=== PATIENT | male | born 1945 | race Caucasian/White ===

== ENCOUNTER 2018-09-19 13:00 | Inpatient (IN) | payer MEDICARE, OTHER, SELFPAY ==
[2018-09-19 14:22] VITALS: BP 141/82; PULSE 116; RESP 20; TEMP 36; O2SAT 95; BMI 35.9
--- NOTE | 2018-09-19 15:46 | PCM.HP.STD ---
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 stroke Status: Acute (2) Delirium Status: Acute (3) Retroperitoneal hemorrhage Status: Acute (4) VRE bacteremia Status: Acute (5) Acute blood loss anemia Status: Acute (6) Abnormal EKG Status: Acute (7) Atrial fibrillation Status: Chronic (8) Diabetes mellitus Status: Chronic (9) Hypertension Status: Chronic (10) Osteoarthritis Status: Chronic (11) Coronary artery disease Status: Acute (12) Gout Status: Chronic (13) Hyperlipidemia Status: Chronic (14) Lumbar spinal stenosis Status: Chronic (15) Myelodysplasia (myelodysplastic syndrome) Status: Chronic (16) Obstructive sleep apnea Status: Chronic (17) Cholelithiases Status: Chronic (18) Choledocholithiasis Status: Chronic History of Present Illness Date of Admission: 09/19/18 Chief Complaint: Here for rehabilitation, strengthening, prior to discharge home with spouse. The patient is a 73 year old Male with below past medical history hospitalized at [facility] with falling. 08/12/2018 Right facial droop, aphasia, tPA given. 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 Consider Watchman procedure for stroke prevention. 08/14/2018 Blood culture positive for VRE, CT abdomen/pelvis negative for source of VRE. Infectious Disease recommended 4 weeks of IV Daptomycin thru 09/14/2018. 08/27/2018 Retroperitoneal hemorrhage requiring 6 units packed red blood cell transfusion. Bleeding resolved, anticoagulation not recommended. 08/29/2018 Acute kidney injury, Cr peaked at 5.10, improved to 3.11, new baseline. 09/01/2018 EKG abnormal, no chest pain, cardiology recommended medical management due to multiple comorbidities. 09/12/2018 Encephalopathy improving. Again, atrial fibrillation, not candidate for anticoagulation, consider Watchman procedure. 09/19/2018 Admit to TCU with debility, here for rehabilitation, strengthening, prior to discharge home with spouse. Resident, and resident spouse requested medication for depression, resident admits to the [facility]. Past Medical History Past Medical History (Chronic Problems): Chronic Problems Atrial fibrillation (Chronic) Diabetes mellitus (Chronic) Hypertension (Chronic) Osteoarthritis (Chronic) Gout (Chronic) Hyperlipidemia (Chronic) Lumbar spinal stenosis (Chronic) Myelodysplasia (myelodysplastic syndrome) (Chronic) Obstructive sleep apnea (Chronic) Cholelithiases (Chronic) Choledocholithiasis (Chronic) Allergies Penicillins Allergy (Verified 09/19/18 14:28) Swelling Home Medications: Ambulatory Orders Medication Instructions Recorded Allopurinol 100 mg PO DAILY 09/19/18 Ascorbic Acid [Vitamin C] 250 mg PO BID 09/19/18 Aspirin [Aspirin EC] 81 mg PO DAILY 09/19/18 Atorvastatin Calcium [Lipitor] 20 mg PO QHS 09/19/18 Bisacodyl 10 mg RC DAILY 09/19/18 Cholecalciferol (VIT D3) [Vitamin 1,000 unit PO DAILY 09/19/18 D] Cyanocobalamin (Vitamin B-12) 1,000 mcg IJ MO 09/19/18 [Cyanocobalamin Injection] Cyclobenzaprine [Flexeril] 10 mg PO TID PRN PRN 09/19/18 Darbepoetin Osmar in Polysorbat 250 mcg IJ QWEEK 09/19/18 [Aranesp] Diazepam [Valium] 5 mg PO TID PRN PRN 09/19/18 Diltiazem HCl [Diltiazem 24Hr ER] 180 mg PO BID 09/19/18 Doxazosin Mesylate [Cardura] 4 mg PO DAILY 09/19/18 Ergocalciferol [Vitamin D] 50,000 unit PO Q7D 09/19/18 Furosemide 60 mg PO DAILY 09/19/18 Glimepiride [Amaryl] 1 mg PO DAILY 09/19/18 Hydrochlorothiazide [Hctz] 25 mg PO DAILY 09/19/18 Iron Ps Complex/B12/Folic Acid 1 cap PO BID 09/19/18 [Ferrex 150 Forte Capsule] Metoprolol Succinate [Toprol Xl] 100 mg PO BID 09/19/18 Multivit,Calc,Mins/Folic Acid 1 tablet PO BID 09/19/18 [One-A-Day Proactive 65 Plus Tb] Nitroglycerin 0.4 mg SL Q10M PRN 09/19/18 Omeprazole 40 mg PO DAILY 09/19/18 Pantoprazole Sodium [Protonix] 20 mg PO DAILY 09/19/18 Potassium Chloride 20 meq PO QODAY 09/19/18 Potassium Chloride 30 meq PO QODAY 09/19/18 Pyridoxine HCl [Vitamin B-6] 100 mg PO DAILY 09/19/18 Sitagliptin Phosphate [Januvia] 50 mg PO DAILY 09/19/18 Triamcinolone 0.1% Cream [Kenalog] 1 applic TOPICAL BID 09/19/18 Zinc Sulfate (50mg elemental) 220 mg PO DAILY 09/19/18 [Zinc Sulfate] hydrALAZINE [Apresoline] 50 mg PO BID 09/19/18 Surgical History: herniorrhaphy, total knee arthroplasty - Left., - - Back surgery, cardiac cath, cholecystostomy, orchiectomy. Psychiatric History: No pertinent psych hx Lives: Spouse/ Significant Other Smoking Status: Former smoker Tobacco Use: Non-smoker Alcohol: None Drugs: None - *Family History Maternal History Items: Cancer - leukemia., Diabetes, Heart Disease, Hypertension Review of Systems Constitutional: Denies: Chills, Fever, Weight Change HEENT: Denies: Head Aches, Sinus Congestion, Sinus Drainage Cardiovascular: Denies: Chest Pain, Palpitations Respiratory: Denies: Cough, Shortness of breath at rest, Sputum production Gastrointestinal: Denies: Abdominal Pain, Nausea, Vomiting Genitourinary: Denies: Dysuria Musculoskeletal: Denies: Joint Pain, Joint Tenderness Skin: Denies: Rash, Wounds Neurological: Denies: Numbness, Tingling, Focal weakness Psychiatric: Reports: Depression. Denies: Anxiety, Homicidal Ideations, Suicidal Ideations Hematologic/ Lymphatic: Denies: Easy Bruising, Easy Bleeding VTE Information - Inpt Only VTE Present on Admission: No VTE Mechan Device Prophylaxis: Knee High GINGER Hose VTE Pharm Prophylaxis ordered?: No Reason prophylaxis not ordered:: Medical Contraindication Patient Problems: Active and Suspected Problems Acute left INDUSTRIAL ORGANIZATIONAL PSYCHOLOGIST stroke (Acute) Delirium (Acute) Retroperitoneal hemorrhage (Acute) VRE bacteremia (Acute) Acute blood loss anemia (Acute) Abnormal EKG (Acute) Coronary artery disease (Acute) - Physical Exam General: Alert, Oriented x3, Cooperative HEENT: Atraumatic, PERRLA, EOMI, Normocephalic Neck: Supple, No JVD, Negative Carotid Bruits Lungs: Clear to auscultation, Normal air movement Cardiovascular: Regular rate, No murmurs Abdomen: Bowel Sounds Present, Soft, Non Tender, - - FOS. Extremities: No edema, Capillary Refill Less than 3 Seconds Skin: No rashes, No breakdown Musculoskeletal: No Tenderness to Palpation of Joints or Extremities Neurological: Cranial nerves II-XII grossly intact Psych/Mental Status: Normal Affect, Appropriate Vital Signs Temp Pulse Resp BP Pulse Ox 96.8 F L 116 H 20 H 141/82 H 95 09/19/18 14:22 09/19/18 14:22 09/19/18 14:22 09/19/18 14:22 09/19/18 14:22 Oxygen Delivery Method Room Air Assessment/Plan All Active Problems Acute left INDUSTRIAL ORGANIZATIONAL PSYCHOLOGIST stroke (Acute) Delirium (Acute) Retroperitoneal hemorrhage (Acute) VRE bacteremia (Acute) Acute blood loss anemia (Acute) Abnormal EKG (Acute) Coronary artery disease (Acute) 73 year old male with below past medical history hospitalized for left INDUSTRIAL ORGANIZATIONAL PSYCHOLOGIST stroke, complicated by delirium, retroperitoneal hemorrhage, VRE bacteremia, abnormal EKG, acute kidney injury, admitted to TCU with debility, here for rehabilitation, strengthening, prior to discharge home with spouse. Debility - PT/OT. Dysphagia - ST. Pain - Tylenol 1000MG Q6H PRN mild pain. Bowel - Miralax 17GM daily, Senna/colace 2 tablets BID, Dulcolax 10MG CA daily, order KUB. Pneumonia vaccination - Administer Prevnar 13 and/or Pneumovax 23 as necessary. DVT prophylaxis - Hold, contraindicated due to bleeding. Gout - Allopurinol 100MG daily. Vitamin C deficiency - Vitamin C 250MG BID. Atrial Fibrillation - Metoprolol succinate 100MG BID, Diltiazem 180MG BID, Aspirin 81MG daily, anticoagulation contraindicated. Hyperlipidemia - Atorvastatin 20MG QHS. Vitamin D deficiency - D2 50,000 units per week, D3 1000IU daily. Vitamin B12 deficiency - B12 1000MCG every month. Anemia of chronic kidney disease - Aranesp 250MG per week. Muscle spasm - Flexeril 10MG TID PRN, Diazepam 5MG TID PRN. BPH - Doxazosin 4MG daily. Edema - Lasix 60MG daily. Diabetes Mellitus II - Glimepiride 1MG daily, Januvia 50MG daily. Hypertension - Metoprolol succinate 100MG BID, Diltiazem 180MG BID, Hydralazine 50MG BID, HCTZ 25MG daily. Iron deficiency anemia - Ferrex 150MG daily. Skin irritation - Calmoseptine BID bilateral buttocks. Nutrition - MVI daily. Coronary Artery Disease - Metoprolol 100MG BID, NTG 0.4MG Q5M PRN. GERD - Omeprazole 40MG daily. Hypokalemia - KCL 20MEQ, 30MEQ alternating days. Vitamin B-6 deficiency - B-6 100MG daily. Zinc deficiency - Zinc 220MG daily. Depression - Rx Citalopram 10MG daily.
--- NOTE | 2018-09-19 15:50 | HP.PCM_ITS ---
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 (2) Delirium Status: Acute (3) Retroperitoneal hemorrhage Status: Acute (4) VRE bacteremia Status: Acute (5) Acute blood loss anemia Status: Acute (6) Abnormal EKG Status: Acute (7) Atrial fibrillation Status: Chronic (8) Diabetes mellitus Status: Chronic (9) Hypertension Status: Chronic (10) Osteoarthritis Status: Chronic (11) Coronary artery disease Status: Acute (12) Gout Status: Chronic (13) Hyperlipidemia Status: Chronic (14) Lumbar spinal stenosis Status: Chronic (15) Myelodysplasia (myelodysplastic syndrome) Status: Chronic (16) Obstructive sleep apnea Status: Chronic (17) Cholelithiases Status: Chronic (18) Choledocholithiasis Status: Chronic History of Present Illness Date of Admission: 09/19/18 Chief Complaint: Here for rehabilitation, strengthening, prior to discharge home with spouse. The patient is a 73 year old Male with below past medical history hospitalized a [facility] with falling. 08/12/2018 Right facial droop, aphasia, tPA given. 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 Consider Watchman procedure for stroke prevention. 08/14/2018 Blood culture positive for VRE, CT abdomen/pelvis negative for source of VRE. Infectious Disease recommended 4 weeks of IV Daptomycin thru 09/14/2018. 08/27/2018 Retroperitoneal hemorrhage requiring 6 units packed red blood cell transfusion. Bleeding resolved, anticoagulation not recommended. 08/29/2018 Acute kidney injury, Cr peaked at 5.10, improved to 3.11, new baseline. 09/01/2018 EKG abnormal, no chest pain, cardiology recommended medical management due to multiple comorbidities. 09/12/2018 Encephalopathy improving. Again, atrial fibrillation, not candidate for anticoagulation, consider Watchman procedure. 09/19/2018 Admit to TCU with debility, here for rehabilitation, strengthening, prior to discharge home with spouse. Resident, and resident spouse requested medication for depression, resident admits to the [facility]. Past Medical History Past Medical History (Chronic Problems): Chronic Problems Atrial fibrillation (Chronic) Diabetes mellitus (Chronic) Hypertension (Chronic) Osteoarthritis (Chronic) Gout (Chronic) Hyperlipidemia (Chronic) Lumbar spinal stenosis (Chronic) Myelodysplasia (myelodysplastic syndrome) (Chronic) Obstructive sleep apnea (Chronic) Cholelithiases (Chronic) Choledocholithiasis (Chronic) Allergies Penicillins Allergy (Verified 09/19/18 14:28) Swelling Home Medications: Ambulatory Orders Medication Instructions Recorded Allopurinol 100 mg PO DAILY 09/19/18 Ascorbic Acid [Vitamin C] 250 mg PO BID 09/19/18 Aspirin [Aspirin EC] 81 mg PO DAILY 09/19/18 Atorvastatin Calcium [Lipitor] 20 mg PO QHS 09/19/18 Bisacodyl 10 mg RC DAILY 09/19/18 Cholecalciferol (VIT D3) [Vitamin 1,000 unit PO DAILY 09/19/18 D] Cyanocobalamin (Vitamin B-12) 1,000 mcg IJ MO 09/19/18 [Cyanocobalamin Injection] Cyclobenzaprine [Flexeril] 10 mg PO TID PRN PRN 09/19/18 Darbepoetin Osmar in Polysorbat 250 mcg IJ QWEEK 09/19/18 [Aranesp] Diazepam [Valium] 5 mg PO TID PRN PRN 09/19/18 Diltiazem HCl [Diltiazem 24Hr ER] 180 mg PO BID 09/19/18 Doxazosin Mesylate [Cardura] 4 mg PO DAILY 09/19/18 Ergocalciferol [Vitamin D] 50,000 unit PO Q7D 09/19/18 Furosemide 60 mg PO DAILY 09/19/18 Glimepiride [Amaryl] 1 mg PO DAILY 09/19/18 Hydrochlorothiazide [Hctz] 25 mg PO DAILY 09/19/18 Iron Ps Complex/B12/Folic Acid 1 cap PO BID 09/19/18 [Ferrex 150 Forte Capsule] Metoprolol Succinate [Toprol Xl] 100 mg PO BID 09/19/18 Multivit,Calc,Mins/Folic Acid 1 tablet PO BID 09/19/18 [One-A-Day Proactive 65 Plus Tb] Nitroglycerin 0.4 mg SL Q10M PRN 09/19/18 Omeprazole 40 mg PO DAILY 09/19/18 Pantoprazole Sodium [Protonix] 20 mg PO DAILY 09/19/18 Potassium Chloride 20 meq PO QODAY 09/19/18 Potassium Chloride 30 meq PO QODAY 09/19/18 Pyridoxine HCl [Vitamin B-6] 100 mg PO DAILY 09/19/18 Sitagliptin Phosphate [Januvia] 50 mg PO DAILY 09/19/18 Triamcinolone 0.1% Cream [Kenalog] 1 applic TOPICAL BID 09/19/18 Zinc Sulfate (50mg elemental) 220 mg PO DAILY 09/19/18 [Zinc Sulfate] hydrALAZINE [Apresoline] 50 mg PO BID 09/19/18 Surgical History: herniorrhaphy, total knee arthroplasty - Left., - - Back surgery, cardiac cath, cholecystostomy, orchiectomy. Psychiatric History: No pertinent psych hx Lives: Spouse/ Significant Other Smoking Status: Former smoker Tobacco Use: Non-smoker Alcohol: None Drugs: None - *Family History Maternal History Items: Cancer - leukemia., Diabetes, Heart Disease, Hypertension Review of Systems Constitutional: Denies: Chills, Fever, Weight Change HEENT: Denies: Head Aches, Sinus Congestion, Sinus Drainage Cardiovascular: Denies: Chest Pain, Palpitations Respiratory: Denies: Cough, Shortness of breath at rest, Sputum production Gastrointestinal: Denies: Abdominal Pain, Nausea, Vomiting Genitourinary: Denies: Dysuria Musculoskeletal: Denies: Joint Pain, Joint Tenderness Skin: Denies: Rash, Wounds Neurological: Denies: Numbness, Tingling, Focal weakness Psychiatric: Reports: Depression. 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 * Debility - PT/OT. * Dysphagia - ST. * Pain - Tylenol 1000MG Q6H PRN mild pain. * Bowel - Miralax 17GM daily, Senna/colace 2 tablets BID, Dulcolax 10MG ME daily, order KUB. * Pneumonia vaccination - Administer Prevnar 13 and/or Pneumovax 23 as necessary. * DVT prophylaxis - Hold, contraindicated due to bleeding. * Gout - Allopurinol 100MG daily. * Vitamin C deficiency - Vitamin C 250MG BID. * Atrial Fibrillation - Metoprolol succinate 100MG BID, Diltiazem 180MG BID, Aspirin 81MG daily, anticoagulation contraindicated. * Hyperlipidemia - Atorvastatin 20MG QHS. * Vitamin D deficiency - D2 50,000 units per week, D3 1000IU daily. * Vitamin B12 deficiency - B12 1000MCG every month. * Anemia of chronic kidney disease - Aranesp 250MG per week. * Muscle spasm - Flexeril 10MG TID PRN, Diazepam 5MG TID PRN. * BPH - Doxazosin 4MG daily. * Edema - Lasix 60MG daily. * Diabetes Mellitus II - Glimepiride 1MG daily, Januvia 50MG daily. * Hypertension - Metoprolol succinate 100MG BID, Diltiazem 180MG BID, Hydralazine 50MG BID, HCTZ 25MG daily. * Iron deficiency anemia - Ferrex 150MG daily. * Skin irritation - Calmoseptine BID bilateral buttocks. * Nutrition - MVI daily. * Coronary Artery Disease - Metoprolol 100MG BID, NTG 0.4MG Q5M PRN. * GERD - Omeprazole 40MG daily. * Hypokalemia - KCL 20MEQ, 30MEQ alternating days. * Vitamin B-6 deficiency - B-6 100MG daily. * Zinc deficiency - Zinc 220MG daily. * Depression - Rx Citalopram 10MG daily.
[2018-09-19 17:00] VITALS: PULSE 125; RESP 18; O2SAT 99
[2018-09-19] MEDS: Ascorbic Acid 500 MG Tablet 250 MG PO (19:08)
[2018-09-19] MEDS: Senna/Docusate Sodium 1 Tablet 2 TABLET PO (19:09)
[2018-09-19 19:11] VITALS: BP 135/82; PULSE 125
[2018-09-19] MEDS: Metoprolol(XL)Succ 100 MG Tablet PO (19:11)
[2018-09-19] MEDS: hydrALAZINE 50 MG Tablet PO (19:11)
[2018-09-19] MEDS: dilTIAZem CD 180 MG Capsule PO (19:11)
[2018-09-19] MEDS: Atorvastatin Calcium 20 MG Tablet PO (21:51)
[2018-09-19] MEDS: Menthol/Lanolin/Calamine/Znox 113 GM Tube 1 APPLIC TOPICAL (21:52)
[2018-09-19] MEDS: Nystatin Powder 15gm Bottle 1 APPLIC TOPICAL (21:58)
[2018-09-20] MEDS: Bisacodyl 10 MG Suppository RECTAL (05:51)
[2018-09-20] MEDS: Nystatin Powder 15gm Bottle 1 APPLIC TOPICAL ×3 (05:53→21:41)
[2018-09-20] MEDS: Menthol/Lanolin/Calamine/Znox 113 GM Tube 1 APPLIC TOPICAL ×2 (05:53→21:41)
[2018-09-20] MEDS: Pantoprazole Sodium 40 MG Tablet PO (05:54)
[2018-09-20] MEDS: Pyridoxine HCl 100 MG Tablet PO (05:54)
[2018-09-20] MEDS: LINAGLIPTIN 5 MG TABLET PO (05:54)
[2018-09-20] MEDS: Ascorbic Acid 500 MG Tablet 250 MG PO ×2 (05:55→17:22)
[2018-09-20] MEDS: Furosemide 40 MG Tablet 60 MG PO (05:56)
[2018-09-20] MEDS: dilTIAZem CD 180 MG Capsule PO ×2 (05:57→17:22)
[2018-09-20] MEDS: Doxazosin 4 MG Tablet PO (05:57)
[2018-09-20 06:01] VITALS: BP 138/74; PULSE 91
[2018-09-20] MEDS: hydrALAZINE 50 MG Tablet PO ×2 (06:01→17:21)
[2018-09-20 06:02] VITALS: BP 138/74; PULSE 91
[2018-09-20] MEDS: Metoprolol(XL)Succ 100 MG Tablet PO ×2 (06:02→17:23)
[2018-09-20] MEDS: hydroCHLOROthiazide 25 MG Tablet PO (06:04)
[2018-09-20 06:05] LABS: Absolute Lymphocyte Count 0.73 X10^3/ul (0.83-4.51); Absolute Neutrophil Count 7.7 X10^3/uL (2.0-7.7); Basophil# 0.01 X10^3/uL; Basophil% 0.1 % (0-1); Eosinophils% 4.1 % (0-5); Hematocrit 23.8 % (40-54); Hemoglobin 7.4 g/dl (13.0-16.5); Lymphocyte # 0.73 X10^3/ul (4.0); Lymphocyte % 7.5 % (19-41); Mean Corp Hgb Conc 31.1 g/gl (32-36); Mean Corpuscular Hgb 30.3 pg (27.0-32.0); Mean Corpuscular Volume 97.5 fL (80-94); Mean Platelet Vol. 8.7 fl (6.2-12.0); Monocyte# 0.89 X10^3/uL; Monocyte% 9.2 % (0-10); Neutrophil # 7.65 X10^3/uL (2.7-7.7); Neutrophil % 78.8 % (47-70); Platelet Count 159 K/mm3 (150-450); RBC Distribution Width CV 17.6 % (11.6-14.6); RBC Distribution Width SD 59.2 fl (35.1-43.9); Red Blood Count 2.44 M/mm3 (4.6-6.2); White Blood Count 9.7 K/mm3 (4.4-11.0)
[2018-09-20 06:09] LABS: POSITIVE COUNT NO; POSITIVE DIFFERENTIAL NO; POSITIVE MORPHOLOGY NO
[2018-09-20 06:27] LABS: Anion Gap 7 (5-15); BUN 91 mg/dL (7-18); Calcium,Total 8.9 mg/dL (8.5-10.1); Chloride 104 mmol/L (98-107); EST Glomerular Filtration Rate 26 mL/min (>60); Est Glom Filt Rate - Afr Amer 31 mL/min (>60); Estimated Creatinine Clearance 30.24 ml/min; Glucose 202 mg/dL (74-106); Potassium 4.2 mmol/L (3.5-5.1); Sodium Level 137 mmol/L (136-145)
[2018-09-20 06:55] LABS: Bedside Glucose 222 mg/dL (70-110)
[2018-09-20] MEDS: Allopurinol 100 MG Tablet PO (08:07)
[2018-09-20] MEDS: Multivitamins,Ther W-Minerals Tablet 1 TABLET PO ×2 (08:07→17:21)
[2018-09-20] MEDS: Glimepiride 1 MG Tablet PO (08:07)
[2018-09-20] MEDS: Aspirin E.C. 81 MG Tablet PO (08:07)
[2018-09-20] MEDS: Iron Polysaccharide Complex 150 MG CAPSULE PO ×2 (08:07→17:21)
[2018-09-20 11:00] VITALS: PULSE 98; RESP 18; O2SAT 97
[2018-09-20] MEDS: Tuberculin,Purif.prot.deriv. 50 TU/ML Vial 5 ML ID (11:04)
[2018-09-20] MEDS: 0.9% NaCl PICC Flush IV ×2 (14:01→21:40)
[2018-09-20 15:33] VITALS: BP 119/89; PULSE 99; RESP 20; TEMP 36.1; O2SAT 99
--- NOTE | 2018-09-20 16:10 | NURSING ---
ASKED PT ABOUT CODE STASIS FOR PT. WOULD LIKE A FULL CODE. REPORTED TO GURU VALENTE
[2018-09-20 17:21] VITALS: PULSE 95
[2018-09-20 17:23] VITALS: PULSE 95
[2018-09-20] MEDS: Atorvastatin Calcium 20 MG Tablet PO (21:41)
[2018-09-21] MEDS: Bisacodyl 10 MG Suppository RECTAL (05:15)
[2018-09-21] MEDS: Ascorbic Acid 500 MG Tablet 250 MG PO ×2 (05:16→17:04)
[2018-09-21 05:17] VITALS: BP 117/63; PULSE 81
[2018-09-21] MEDS: dilTIAZem CD 180 MG Capsule PO (05:17)
[2018-09-21] MEDS: Metoprolol(XL)Succ 100 MG Tablet PO (05:17)
[2018-09-21] MEDS: Pantoprazole Sodium 40 MG Tablet PO (05:18)
[2018-09-21] MEDS: hydroCHLOROthiazide 25 MG Tablet PO (05:18)
[2018-09-21] MEDS: Doxazosin 4 MG Tablet PO (05:18)
[2018-09-21] MEDS: Furosemide 40 MG Tablet 60 MG PO (05:18)
[2018-09-21 05:19] VITALS: BP 117/63; PULSE 81
[2018-09-21] MEDS: Pyridoxine HCl 100 MG Tablet PO (05:19)
[2018-09-21] MEDS: hydrALAZINE 50 MG Tablet PO (05:19)
[2018-09-21] MEDS: LINAGLIPTIN 5 MG TABLET PO (05:20)
[2018-09-21] MEDS: Menthol/Lanolin/Calamine/Znox 113 GM Tube 1 APPLIC TOPICAL ×2 (05:20→20:17)
[2018-09-21] MEDS: Nystatin Powder 15gm Bottle 1 APPLIC TOPICAL ×3 (05:21→20:17)
[2018-09-21 06:41] LABS: Bedside Glucose 155 mg/dL (70-110)
[2018-09-21] MEDS: Allopurinol 100 MG Tablet PO (08:05)
[2018-09-21] MEDS: Iron Polysaccharide Complex 150 MG CAPSULE PO ×2 (08:05→16:59)
[2018-09-21] MEDS: Aspirin E.C. 81 MG Tablet PO (08:05)
[2018-09-21] MEDS: Multivitamins,Ther W-Minerals Tablet 1 TABLET PO ×2 (08:05→16:59)
[2018-09-21] MEDS: Glimepiride 1 MG Tablet PO (08:05)
--- NOTE | 2018-09-21 09:08 | NURSING ---
Dr Ni notified by welder 2nd shift that pt requesting pt be on antidepressant d/t tearful & emotional. use to take it at home and it helped alot according to .
[2018-09-21] MEDS: Citalopram 10 MG Tablet PO (09:39)
[2018-09-21 09:46] VITALS: PULSE 76; RESP 18; O2SAT 99
[2018-09-21] MEDS: Acetaminophen 500 MG Tablet 1000 MG PO (12:31)
--- NOTE | 2018-09-21 13:15 | RAD_ITS ---
STUDY: X-RAY - ABDOMEN/PELVIS REASON FOR EXAM: Male, 73 years old. Diffuse abdominal pain TECHNIQUE: 4 AP views COMPARISON: None. FINDINGS: Normal visualized lung bases. There is a moderate amount of colonic fecal material. There is no demonstrated free abdominal air. The visualized liver, spleen and kidneys are grossly normal in size and morphology. Normal soft tissue structures. Surgical hardware in the lower thoracic and lumbar spine free of complication RAD/Abdomen Single View IMPRESSION: No acute findings, constipation Electronically Signed: Gutierrez Cullen MD at 16:59 EDT , Service support ,
[2018-09-21 15:27] VITALS: BP 93/45; PULSE 109; RESP 18; TEMP 36.6; O2SAT 96
--- NOTE | 2018-09-21 15:37 | NURSING ---
wound photo: right buttock
[2018-09-21] MEDS: Senna/Docusate Sodium 1 Tablet 2 TABLET PO (17:03)
--- NOTE | 2018-09-21 18:41 | NURSING ---
pt BP low, Dr Ni updated. new order to hold metoprolol, apresoline & cardizem tonight.
--- NOTE | 2018-09-21 19:30 | NURSING ---
Dr Ni reviewed KUB and entered ordered of golytely 1L ordered.
[2018-09-21] MEDS: Atorvastatin Calcium 20 MG Tablet PO (20:19)
[2018-09-21] MEDS: Electrolyte Solution/Peg's 4000 ML 1000 ML PO (20:25)
[2018-09-22] MEDS: 0.9% NaCl PICC Flush IV ×2 (04:54→23:18)
[2018-09-22] MEDS: Bisacodyl 10 MG Suppository RECTAL (06:33)
[2018-09-22] MEDS: Ascorbic Acid 500 MG Tablet 250 MG PO ×2 (06:36→17:29)
[2018-09-22] MEDS: LINAGLIPTIN 5 MG TABLET PO (06:36)
[2018-09-22] MEDS: Pyridoxine HCl 100 MG Tablet PO (06:36)
[2018-09-22 06:37] VITALS: BP 127/60; PULSE 102
[2018-09-22] MEDS: Metoprolol(XL)Succ 100 MG Tablet PO ×2 (06:37→17:28)
[2018-09-22 06:38] VITALS: BP 127/60; PULSE 102
[2018-09-22] MEDS: Senna/Docusate Sodium 1 Tablet 2 TABLET PO ×2 (06:38→17:28)
[2018-09-22] MEDS: hydrALAZINE 50 MG Tablet PO ×2 (06:38→17:27)
[2018-09-22] MEDS: dilTIAZem CD 180 MG Capsule PO ×2 (06:38→17:28)
[2018-09-22] MEDS: Nystatin Powder 15gm Bottle 1 APPLIC TOPICAL ×3 (06:39→22:04)
[2018-09-22] MEDS: Pantoprazole Sodium 40 MG Tablet PO (06:39)
[2018-09-22] MEDS: Doxazosin 4 MG Tablet PO (06:39)
[2018-09-22] MEDS: Citalopram 10 MG Tablet PO (06:39)
[2018-09-22] MEDS: Furosemide 40 MG Tablet 60 MG PO (06:39)
[2018-09-22] MEDS: Menthol/Lanolin/Calamine/Znox 113 GM Tube 1 APPLIC TOPICAL ×2 (06:40→22:04)
[2018-09-22] MEDS: hydroCHLOROthiazide 25 MG Tablet PO (06:40)
[2018-09-22 07:01] LABS: Bedside Glucose 169 mg/dL (70-110)
[2018-09-22] MEDS: Aspirin E.C. 81 MG Tablet PO (08:39)
[2018-09-22] MEDS: Glimepiride 1 MG Tablet PO (08:39)
[2018-09-22] MEDS: Iron Polysaccharide Complex 150 MG CAPSULE PO ×2 (08:39→17:27)
[2018-09-22] MEDS: Allopurinol 100 MG Tablet PO (08:40)
[2018-09-22] MEDS: Multivitamins,Ther W-Minerals Tablet 1 TABLET PO ×2 (08:40→17:27)
--- NOTE | 2018-09-22 14:22 | PCM.PN.RX ---
<Rojas Stewart D - Last Filed: 09/22/18 14:22> Progress Note - Pharmacy Subjective: [facility]CU Admission Objective: Allergies Penicillins Allergy (Verified 09/19/18 14:28) Swelling Current Medications Generic Name Dose Route Start Last Admin Trade Name Freq PRN Reason Stop Dose Admin Acetaminophen 1,000 mg 09/19/18 16:12 09/21/18 12:31 Tylenol PO 1,000 mg Q6H PRN Administration MILD PAIN (1-3/10) Allopurinol 100 mg 09/20/18 08:00 09/22/18 08:40 [facility] Ascorbic Acid 250 mg 09/19/18 18:00 09/22/18 06:36 Vitamin C PO 250 mg BID [facility] Administration Aspirin 81 mg 09/20/18 08:00 09/22/18 08:39 Ecotrin PO 81 mg DAILYCM [facility] Administration Atorvastatin Calcium 20 mg 09/19/18 22:00 09/21/18 20:19 Lipitor PO 20 mg QHS [facility] Administration Bisacodyl 10 mg 09/20/18 06:00 09/22/18 06:33 Dulcolax RECTAL 09/29/18 06:01 10 mg DAILY [facility] Administration Calamine/Phenol 1 applic 09/19/18 22:00 09/22/18 06:40 Calmoseptine Ointment TOPICAL 1 applicatio 0600,2200 [facility] Administration Protocol Cholecalciferol 1,000 unit 09/20/18 06:00 09/22/18 06:36 Vitamin D PO 1,000 unit DAILY [facility] Administration Citalopram Hydrobromide 10 mg 09/22/18 06:00 09/22/18 06:39 Celexa PO 10 mg DAILY [facility] Administration Cyanocobalamin 1,000 mcg 09/23/18 10:00 Vitamin B12 IM QMONTH [facility] Cyclobenzaprine HCl 10 mg 09/19/18 15:36 Flexeril PO TID PRN PRN muscle spasms Diazepam 5 mg 09/19/18 15:36 Valium PO TID PRN PRN muscle spasms Diltiazem HCl 180 mg 09/19/18 18:00 09/22/18 06:38 Cardizem Cd PO 180 mg BID [facility] Administration Doxazosin Mesylate 4 mg 09/20/18 06:00 09/22/18 06:39 Cardura PO 4 mg DAILY [facility] Administration Ergocalciferol 50,000 unit 09/25/18 10:00 Vitamin D PO Q7D [facility] Furosemide 60 mg 09/20/18 06:00 09/22/18 06:39 Lasix PO 60 mg DAILY [facility] Administration Glimepiride 1 mg 09/20/18 08:00 09/22/18 08:39 Amaryl PO 1 mg DAILYCM [facility] Administration Heparin Sodium (Beef Lung) 50 units 09/19/18 22:35 IV UD PRN HEPARIN FLUSH Hydralazine HCl 50 mg 09/19/18 18:00 09/22/18 06:38 Apresoline PO 50 mg BID [facility] Administration Hydrochlorothiazide 25 mg 09/20/18 06:00 09/22/18 06:40 Hctz PO 25 mg DAILY [facility] Administration Linagliptin 5 mg 09/20/18 06:00 09/22/18 06:36 Tradjenta PO 5 mg DAILY [facility] Administration Metoprolol Succinate 100 mg 09/19/18 18:00 09/22/18 06:37 Toprol Xl (Beta Thelma) PO 100 mg BID [facility] Administration Multivitamins/Minerals 1 tablet 09/20/18 08:00 09/22/18 08:40 Multivitamin With Minerals PO 1 tablet BIDCM [facility] Administration Nitroglycerin 0.4 mg 09/19/18 15:36 Nitrostat SUBLINGUAL Q5M PRN chest pain Nystatin 1 applic 09/19/18 22:00 09/22/18 14:00 Mycostatin Powder TOPICAL 1 applicatio TID [facility] Administration Protocol Pantoprazole Sodium 40 mg 09/20/18 06:00 09/22/18 06:39 Protonix PO 40 mg DAILY [facility] Administration Polyethylene Glycol 17 gm 09/20/18 06:00 09/22/18 06:40 Miralax PO Not Given DAILY [facility] Polysaccharide Iron Complex 150 mg 09/20/18 08:00 09/22/18 08:39 Ferrex 150 PO 150 mg BIDCM [facility] Administration Potassium Chloride 20 meq 09/21/18 10:00 09/21/18 08:05 K-Dur PO 20 meq QODAY [facility] Administration Potassium Chloride 30 meq 09/20/18 10:00 09/22/18 10:25 K-Dur PO 30 meq QODAY [facility] Administration Pyridoxine HCl 100 mg 09/20/18 06:00 09/22/18 06:36 Vitamin B-6 PO 100 mg DAILY [facility] Administration Senna/Docusate Sodium 2 tablet 09/19/18 18:00 09/22/18 06:38 Senokot-S, Kandi-Colace PO 2 tablet BID [facility] Administration Sodium Chloride 10 - 20 ml 09/19/18 22:35 09/22/18 04:54 IV 10 ml UD PRN Administration PICC FLUSH Tuberculin PPD 5 tu 09/27/18 10:00 Tubersol, Aplisol, Ppd ID 09/27/18 10:01 X1 ONE Zinc Sulfate 220 mg 09/20/18 06:00 09/22/18 06:38 Zinc Sulfate PO 220 mg DAILY [facility] Administration Problem List Acute left [employer] stroke (Acute) Delirium (Acute) Retroperitoneal hemorrhage (Acute) VRE bacteremia (Acute) Acute blood loss anemia (Acute) Abnormal EKG (Acute) Atrial fibrillation (Chronic) Diabetes mellitus (Chronic) Hypertension (Chronic) Osteoarthritis (Chronic) Coronary artery disease (Acute) Gout (Chronic) Hyperlipidemia (Chronic) Lumbar spinal stenosis (Chronic) Myelodysplasia (myelodysplastic syndrome) (Chronic) Obstructive sleep apnea (Chronic) Cholelithiases (Chronic) Choledocholithiasis (Chronic) Vital Signs Temp Pulse Resp BP Pulse Ox 97.8 F 102 H 18 127/60 H 96 09/21/18 15:27 09/22/18 06:38 09/21/18 15:27 09/22/18 06:38 09/21/18 15:27 Oxygen Delivery Method Room Air Weight: 132.619 kg Body Mass Index (BMI) 35.9 Sodium 137 mmol/L (136-145) 09/20/18 05:20 Potassium 4.2 mmol/L (3.5-5.1) 09/20/18 05:20 Chloride 104 mmol/L (98-107) 09/20/18 05:20 Carbon Dioxide 26.0 mmol/L (21.0-32.0) 09/20/18 05:20 Anion Gap 7 (5-15) 09/20/18 05:20 BUN 91 mg/dL (7-18) H 09/20/18 05:20 Creatinine 2.60 mg/dL (0.70-1.30) H 09/20/18 05:20 Est GFR (MDRD) Af Amer 31 mL/min (>60) L 09/20/18 05:20 Est GFR (MDRD) Non-Af 26 mL/min (>60) L 09/20/18 05:20 BUN/Creatinine Ratio 35.0 RATIO (10-20) H 09/20/18 05:20 Glucose 202 mg/dL (74-106) H 09/20/18 05:20 Assessment/Plan: 1) Pain APAP for mild pain. Continue to monitor prn medication use, daily pain scores. * Duplicate instructions (muscle spasms) for diazepam and cyclobenzaprine. Please consider dc one or change instructions for when to use each one. 2) CAD/HTN/HLD/AFib ASA, atorvastatin, diltiazem, furosemide, hydralazine, HCTZ, metoprolol, prn ntg. Continue to monitor BP/HR, renal function, electrolytes, prn medication use, s/s chest pain. 3) BPH Doxazosin. Continue to monitor BP, symptoms. 4) DM2 Glimepiride, linagliptin. Continue to monitor renal function, BGT, s/s hyper/hypoglycemia. 5) GI Pantoprazole. Continue to monitor s/s GI distress. 6) Gout Allopurinol. Continue to monitor s/s gout. 7) Nutrition B6, KCL, multivitamin, Fe, D, B12, C, Zn. Continue to monitor clinically. Psychotropic Medications: 8) Depression Citalopram. Continue to monitor s/s depression/anxiety. Unnecessary Medications: * 9) Patient is taking cholecalciferol 1000 units daily, and ergocalciferol 50k units weekly. Recommend to DC daily 1000 unit order. Bowel Regimen: 10) Senna/s, PEG, prn bisacodyl. Continue to monitor prn medication use, for constipation/diarrhea. Date of Note:: 09/22/18 - Provider Comments Provider responsibility: Provider responsible to enter orders to implement recommendations <Charly Ni Chi - Last Filed: 09/22/18 16:58> Progress Note - Pharmacy Subjective: [] Objective: Allergies Penicillins Allergy (Verified 09/19/18 14:28) Swelling Current Medications Generic Name Dose Route Start Last Admin Trade Name Freq PRN Reason Stop Dose Admin Acetaminophen 1,000 mg 09/19/18 16:12 09/21/18 12:31 Tylenol PO 1,000 mg Q6H PRN Administration MILD PAIN (1-3/10) Allopurinol 100 mg 09/20/18 08:00 09/22/18 08:40 [facility] Ascorbic Acid 250 mg 09/19/18 18:00 09/22/18 06:36 Vitamin C PO 250 mg BID [facility] Administration Aspirin 81 mg 09/20/18 08:00 09/22/18 08:39 [facility] Administration Atorvastatin Calcium 20 mg 09/19/18 22:00 09/21/18 20:19 Lipitor PO 20 mg QHS [facility] Administration Bisacodyl 10 mg 09/20/18 06:00 09/22/18 06:33 Dulcolax RECTAL 09/29/18 06:01 10 mg DAILY [facility] Administration Calamine/Phenol 1 applic 09/19/18 22:00 09/22/18 06:40 Calmoseptine Ointment TOPICAL 1 applicatio 0600,2200 [facility] Administration Protocol Cholecalciferol 1,000 unit 09/20/18 06:00 09/22/18 06:36 Vitamin D PO 1,000 unit DAILY [facility] Administration Citalopram Hydrobromide 10 mg 09/22/18 06:00 09/22/18 06:39 Celexa PO 10 mg DAILY [facility] Administration Cyanocobalamin 1,000 mcg 09/23/18 10:00 Vitamin B12 IM QMONTH [facility] Cyclobenzaprine HCl 10 mg 09/19/18 15:36 Flexeril PO TID PRN PRN muscle spasms Diazepam 5 mg 09/19/18 15:36 Valium PO TID PRN PRN muscle spasms Diltiazem HCl 180 mg 09/19/18 18:00 09/22/18 06:38 Cardizem Cd PO 180 mg BID [facility] Administration Doxazosin Mesylate 4 mg 09/20/18 06:00 09/22/18 06:39 Cardura PO 4 mg DAILY [facility] Administration Ergocalciferol 50,000 unit 09/25/18 10:00 Vitamin D PO Q7D [facility] Furosemide 60 mg 09/20/18 06:00 09/22/18 06:39 Lasix PO 60 mg DAILY [facility] Administration Glimepiride 1 mg 09/20/18 08:00 09/22/18 08:39 Amaryl PO 1 mg DAILYCM [facility] Administration Heparin Sodium (Beef Lung) 50 units 09/19/18 22:35 IV UD PRN HEPARIN FLUSH Hydralazine HCl 50 mg 09/19/18 18:00 09/22/18 06:38 Apresoline PO 50 mg BID [facility] Administration Hydrochlorothiazide 25 mg 09/20/18 06:00 09/22/18 06:40 Hctz PO 25 mg DAILY [facility] Administration Linagliptin 5 mg 09/20/18 06:00 09/22/18 06:36 Tradjenta PO 5 mg DAILY [facility] Administration Metoprolol Succinate 100 mg 09/19/18 18:00 09/22/18 06:37 Toprol Xl (Beta Thelma) PO 100 mg BID [facility] Administration Multivitamins/Minerals 1 tablet 09/20/18 08:00 09/22/18 08:40 [facility] Nitroglycerin 0.4 mg 09/19/18 15:36 Nitrostat SUBLINGUAL Q5M PRN chest pain Nystatin 1 applic 09/19/18 22:00 09/22/18 14:00 Mycostatin Powder TOPICAL 1 applicatio TID [facility] Administration Protocol Pantoprazole Sodium 40 mg 09/20/18 06:00 09/22/18 06:39 Protonix PO 40 mg DAILY [facility] Administration Polyethylene Glycol 17 gm 09/20/18 06:00 09/22/18 06:40 Miralax PO Not Given DAILY [facility] Polysaccharide Iron Complex 150 mg 09/20/18 08:00 09/22/18 08:39 Ferrex 150 PO 150 mg BIDCM [facility] Administration Potassium Chloride 20 meq 09/21/18 10:00 09/21/18 08:05 K-Dur PO 20 meq QODAY [facility] Administration Potassium Chloride 30 meq 09/20/18 10:00 09/22/18 10:25 K-Dur PO 30 meq QODAY [facility] Administration Pyridoxine HCl 100 mg 09/20/18 06:00 09/22/18 06:36 Vitamin B-6 PO 100 mg DAILY [facility] Administration Senna/Docusate Sodium 2 tablet 09/19/18 18:00 09/22/18 06:38 Senokot-S, Kandi-Colace PO 2 tablet BID [facility] Administration Sodium Chloride 10 - 20 ml 09/19/18 22:35 09/22/18 04:54 IV 10 ml UD PRN Administration PICC FLUSH Tuberculin PPD 5 tu 09/27/18 10:00 Tubersol, Aplisol, Ppd ID 09/27/18 10:01 X1 ONE Zinc Sulfate 220 mg 09/20/18 06:00 09/22/18 06:38 Zinc Sulfate PO 220 mg DAILY [facility] Administration Problem List Acute left [employer] stroke (Acute) Delirium (Acute) Retroperitoneal hemorrhage (Acute) VRE bacteremia (Acute) Acute blood loss anemia (Acute) Abnormal EKG (Acute) Atrial fibrillation (Chronic) Diabetes mellitus (Chronic) Hypertension (Chronic) Osteoarthritis (Chronic) Coronary artery disease (Acute) Gout (Chronic) Hyperlipidemia (Chronic) Lumbar spinal stenosis (Chronic) Myelodysplasia (myelodysplastic syndrome) (Chronic) Obstructive sleep apnea (Chronic) Cholelithiases (Chronic) Choledocholithiasis (Chronic) Vital Signs Temp Pulse Resp BP Pulse Ox 97.1 F L 108 H 18 129/66 H 98 09/22/18 16:00 09/22/18 16:00 09/22/18 16:00 09/22/18 16:00 09/22/18 16:00 Oxygen Delivery Method Room Air Weight: 132.619 kg Body Mass Index (BMI) 35.9 Sodium 137 mmol/L (136-145) 09/20/18 05:20 Potassium 4.2 mmol/L (3.5-5.1) 09/20/18 05:20 Chloride 104 mmol/L (98-107) 09/20/18 05:20 Carbon Dioxide 26.0 mmol/L (21.0-32.0) 09/20/18 05:20 Anion Gap 7 (5-15) 09/20/18 05:20 BUN 91 mg/dL (7-18) H 09/20/18 05:20 Creatinine 2.60 mg/dL (0.70-1.30) H 09/20/18 05:20 Est GFR (MDRD) Af Amer 31 mL/min (>60) L 09/20/18 05:20 Est GFR (MDRD) Non-Af 26 mL/min (>60) L 09/20/18 05:20 BUN/Creatinine Ratio 35.0 RATIO (10-20) H 09/20/18 05:20 Glucose 202 mg/dL (74-106) H 09/20/18 05:20 Assessment/Plan: Psychotropic Medications: Unnecessary Medications: Bowel Regimen: - Provider Comments Provider responsibility: Provider responsible to enter orders to implement recommendations Provider Comments to Recommendations by Pharmacy: Agree
--- NOTE | 2018-09-22 14:33 | PHA.CONS_ITS ---
<Rojas Stewart D - Last Filed: 09/22/18 14:22> Progress Note - Pharmacy Subjective: TCU Admission Objective: Allergies Penicillins Allergy (Verified 09/19/18 14:28) Swelling Current Medications Generic Name Dose Route Start Last Admin Trade Name Freq PRN Reason Stop Dose Admin Acetaminophen 1,000 mg 09/19/18 16:12 09/21/18 12:31 Tylenol PO 1,000 mg Q6H PRN Administration MILD PAIN (1-3/10) Allopurinol 100 mg 09/20/18 08:00 09/22/18 08:40 [facility] Ascorbic Acid 250 mg 09/19/18 18:00 09/22/18 06:36 Vitamin C PO 250 mg BID [facility] Administration Aspirin 81 mg 09/20/18 08:00 09/22/18 08:39 Ecotrin PO 81 mg DAILYCM [facility] Administration Atorvastatin Calcium 20 mg 09/19/18 22:00 09/21/18 20:19 Lipitor PO 20 mg QHS [facility] Administration Bisacodyl 10 mg 09/20/18 06:00 09/22/18 06:33 Dulcolax RECTAL 09/29/18 06:01 10 mg DAILY [facility] Administration Calamine/Phenol 1 applic 09/19/18 22:00 09/22/18 06:40 Calmoseptine Ointment TOPICAL 1 applicatio 0600,2200 [facility] Administration Protocol Cholecalciferol 1,000 unit 09/20/18 06:00 09/22/18 06:36 Vitamin D PO 1,000 unit DAILY [facility] Administration Citalopram Hydrobromide 10 mg 09/22/18 06:00 09/22/18 06:39 Celexa PO 10 mg DAILY [facility] Administration Cyanocobalamin 1,000 mcg 09/23/18 10:00 Vitamin B12 IM QMONTH [facility] Cyclobenzaprine HCl 10 mg 09/19/18 15:36 Flexeril PO TID PRN PRN muscle spasms Diazepam 5 mg 09/19/18 15:36 Valium PO TID PRN PRN muscle spasms Diltiazem HCl 180 mg 09/19/18 18:00 09/22/18 06:38 Cardizem Cd PO 180 mg BID [facility] Administration Doxazosin Mesylate 4 mg 09/20/18 06:00 09/22/18 06:39 Cardura PO 4 mg DAILY [facility] Administration Ergocalciferol 50,000 unit 09/25/18 10:00 Vitamin D PO Q7D [facility] Furosemide 60 mg 09/20/18 06:00 09/22/18 06:39 Lasix PO 60 mg DAILY [facility] Administration Glimepiride 1 mg 09/20/18 08:00 09/22/18 08:39 Amaryl PO 1 mg DAILYCM [facility] Administration Heparin Sodium (Beef Lung) 50 units 09/19/18 22:35 IV UD PRN HEPARIN FLUSH Hydralazine HCl 50 mg 09/19/18 18:00 09/22/18 06:38 Apresoline PO 50 mg BID [facility] Administration Hydrochlorothiazide 25 mg 09/20/18 06:00 09/22/18 06:40 Hctz PO 25 mg DAILY [facility] Administration Linagliptin 5 mg 09/20/18 06:00 09/22/18 06:36 Tradjenta PO 5 mg DAILY [facility] Administration Metoprolol Succinate 100 mg 09/19/18 18:00 09/22/18 06:37 Toprol Xl (Beta Thelma) PO 100 mg BID [facility] Administration Multivitamins/Minerals 1 tablet 09/20/18 08:00 09/22/18 08:40 Multivitamin With Minerals PO 1 tablet BIDCM [facility] Administration Nitroglycerin 0.4 mg 09/19/18 15:36 Nitrostat SUBLINGUAL Q5M PRN chest pain Nystatin 1 applic 09/19/18 22:00 09/22/18 14:00 Mycostatin Powder TOPICAL 1 applicatio TID [facility] Administration Protocol Pantoprazole Sodium 40 mg 09/20/18 06:00 09/22/18 06:39 Protonix PO 40 mg DAILY [facility] Administration Polyethylene Glycol 17 gm 09/20/18 06:00 09/22/18 06:40 Miralax PO Not Given DAILY [facility] Polysaccharide Iron Complex 150 mg 09/20/18 08:00 09/22/18 08:39 Ferrex 150 PO 150 mg BIDCM [facility] Administration Potassium Chloride 20 meq 09/21/18 10:00 09/21/18 08:05 K-Dur PO 20 meq QODAY [facility] Administration Potassium Chloride 30 meq 09/20/18 10:00 09/22/18 10:25 K-Dur PO 30 meq QODAY [facility] Administration Pyridoxine HCl 100 mg 09/20/18 06:00 09/22/18 06:36 Vitamin B-6 PO 100 mg DAILY [facility] Administration Senna/Docusate Sodium 2 tablet 09/19/18 18:00 09/22/18 06:38 Senokot-S, Kandi-Colace PO 2 tablet BID [facility] Administration Sodium Chloride 10 - 20 ml 09/19/18 22:35 09/22/18 04:54 IV 10 ml UD PRN Administration PICC FLUSH Tuberculin PPD 5 tu 09/27/18 10:00 Tubersol, Aplisol, Ppd ID 09/27/18 10:01 X1 ONE Zinc Sulfate 220 mg 09/20/18 06:00 09/22/18 06:38 Zinc Sulfate PO 220 mg DAILY [facility] Administration Problem List Acute left [employer] stroke (Acute) Delirium (Acute) Retroperitoneal hemorrhage (Acute) VRE bacteremia (Acute) Acute blood loss anemia (Acute) Abnormal EKG (Acute) Atrial fibrillation (Chronic) Diabetes mellitus (Chronic) Hypertension (Chronic) Osteoarthritis (Chronic) Coronary artery disease (Acute) Gout (Chronic) Hyperlipidemia (Chronic) Lumbar spinal stenosis (Chronic) Myelodysplasia (myelodysplastic syndrome) (Chronic) Obstructive sleep apnea (Chronic) Cholelithiases (Chronic) Choledocholithiasis (Chronic) Vital Signs Temp Pulse Resp BP Pulse Ox 97.8 F 102 H 18 127/60 H 96 09/21/18 15:27 09/22/18 06:38 09/21/18 15:27 09/22/18 06:38 09/21/18 15:27 Oxygen Delivery Method Room Air Weight: 132.619 kg Body Mass Index (BMI) 35.9 Sodium 137 mmol/L (136-145) 09/20/18 05:20 Potassium 4.2 mmol/L (3.5-5.1) 09/20/18 05:20 Chloride 104 mmol/L (98-107) 09/20/18 05:20 Carbon Dioxide 26.0 mmol/L (21.0-32.0) 09/20/18 05:20 Anion Gap 7 (5-15) 09/20/18 05:20 BUN 91 mg/dL (7-18) H 09/20/18 05:20 Creatinine 2.60 mg/dL (0.70-1.30) H 09/20/18 05:20 Est GFR (MDRD) Af Amer 31 mL/min (>60) L 09/20/18 05:20 Est GFR (MDRD) Non-Af 26 mL/min (>60) L 09/20/18 05:20 BUN/Creatinine Ratio 35.0 RATIO (10-20) H 09/20/18 05:20 Glucose 202 mg/dL (74-106) H 09/20/18 05:20 Assessment/Plan: 1) Pain APAP for mild pain. Continue to monitor prn medication use, daily pain scores. * Duplicate instructions (muscle spasms) for diazepam and cyclobenzaprine. Please consider dc one or change instructions for when to use each one. 2) CAD/HTN/HLD/AFib ASA, atorvastatin, diltiazem, furosemide, hydralazine, HCTZ, metoprolol, prn ntg. Continue to monitor BP/HR, renal function, electrolytes, prn medication use, s/s chest pain. 3) BPH Doxazosin. Continue to monitor BP, symptoms. 4) DM2 Glimepiride, linagliptin. Continue to monitor renal function, BGT, s/s hyper/hypoglycemia. 5) GI Pantoprazole. Continue to monitor s/s GI distress. 6) Gout Allopurinol. Continue to monitor s/s gout. 7) Nutrition B6, KCL, multivitamin, Fe, D, B12, C, Zn. Continue to monitor clinically. Psychotropic Medications: 8) Depression Citalopram. Continue to monitor s/s depression/anxiety. Unnecessary Medications: * 9) Patient is taking cholecalciferol 1000 units daily, and ergocalciferol 50k units weekly. Recommend to DC daily 1000 unit order. Bowel Regimen: 10) Senna/s, PEG, prn bisacodyl. Continue to monitor prn medication use, for constipation/diarrhea. Date of Note:: 09/22/18 - Provider Comments Provider responsibility: Provider responsible to enter orders to implement recommendations <Charly Ni Chi - Last Filed: 09/22/18 16:58> Progress Note - Pharmacy Subjective: [] Objective: Allergies Penicillins Allergy (Verified 09/19/18 14:28) Swelling Current Medications Generic Name Dose Route Start Last Admin Trade Name Freq PRN Reason Stop Dose Admin Acetaminophen 1,000 mg 09/19/18 16:12 09/21/18 12:31 Tylenol PO 1,000 mg Q6H PRN Administration MILD PAIN (1-3/10) Allopurinol 100 mg 09/20/18 08:00 09/22/18 08:40 [facility] Administration Ascorbic Acid 250 mg 09/19/18 18:00 09/22/18 06:36 Vitamin C PO 250 mg BID [facility] Administration Aspirin 81 mg 09/20/18 08:00 09/22/18 08:39 Ecotrin PO [facility] Administration Atorvastatin Calcium 20 mg 09/19/18 22:00 09/21/18 20:19 Lipitor PO 20 mg QHS [facility] Administration Bisacodyl 10 mg 09/20/18 06:00 09/22/18 06:33 Dulcolax RECTAL 09/29/18 06:01 10 mg DAILY [facility] Administration Calamine/Phenol 1 applic 09/19/18 22:00 09/22/18 06:40 Calmoseptine Ointment TOPICAL 1 applicatio 0600,2200 [facility] Administration Protocol Cholecalciferol 1,000 unit 09/20/18 06:00 09/22/18 06:36 Vitamin D PO 1,000 unit DAILY [facility] Administration Citalopram Hydrobromide 10 mg 09/22/18 06:00 09/22/18 06:39 Celexa PO 10 mg DAILY [facility] Administration Cyanocobalamin 1,000 mcg 09/23/18 10:00 Vitamin B12 IM QMONTH [facility] Cyclobenzaprine HCl 10 mg 09/19/18 15:36 Flexeril PO TID PRN PRN muscle spasms Diazepam 5 mg 09/19/18 15:36 Valium PO TID PRN PRN muscle spasms Diltiazem HCl 180 mg 09/19/18 18:00 09/22/18 06:38 Cardizem Cd PO 180 mg BID [facility] Administration Doxazosin Mesylate 4 mg 09/20/18 06:00 09/22/18 06:39 Cardura PO 4 mg DAILY [facility] Administration Ergocalciferol 50,000 unit 09/25/18 10:00 Vitamin D PO Q7D [facility] Furosemide 60 mg 09/20/18 06:00 09/22/18 06:39 Lasix PO 60 mg DAILY [facility] Administration Glimepiride 1 mg 09/20/18 08:00 09/22/18 08:39 Amaryl PO 1 mg DAILYCM [facility] Administration Heparin Sodium (Beef Lung) 50 units 09/19/18 22:35 IV UD PRN HEPARIN FLUSH Hydralazine HCl 50 mg 09/19/18 18:00 09/22/18 06:38 Apresoline PO 50 mg BID [facility] Administration Hydrochlorothiazide 25 mg 09/20/18 06:00 09/22/18 06:40 Hctz PO 25 mg DAILY [facility] Administration Linagliptin 5 mg 09/20/18 06:00 09/22/18 06:36 Tradjenta PO 5 mg DAILY [facility] Administration Metoprolol Succinate 100 mg 09/19/18 18:00 09/22/18 06:37 Toprol Xl (Beta Thelma) PO 100 mg BID [facility] Administration Multivitamins/Minerals 1 tablet 09/20/18 08:00 09/22/18 08:40 Multivitamin With Minerals [facility] Administration Nitroglycerin 0.4 mg 09/19/18 15:36 Nitrostat SUBLINGUAL Q5M PRN chest pain Nystatin 1 applic 09/19/18 22:00 09/22/18 14:00 Mycostatin Powder TOPICAL 1 applicatio TID [facility] Administration Protocol Pantoprazole Sodium 40 mg 09/20/18 06:00 09/22/18 06:39 Protonix PO 40 mg DAILY [facility] Administration Polyethylene Glycol 17 gm 09/20/18 06:00 09/22/18 06:40 Miralax PO Not Given DAILY [facility] Polysaccharide Iron Complex 150 mg 09/20/18 08:00 09/22/18 08:39 Ferrex 150 PO 150 mg BIDCM [facility] Administration Potassium Chloride 20 meq 09/21/18 10:00 09/21/18 08:05 K-Dur PO 20 meq QODAY [facility] Administration Potassium Chloride 30 meq 09/20/18 10:00 09/22/18 10:25 K-Dur PO 30 meq QODAY [facility] Administration Pyridoxine HCl 100 mg 09/20/18 06:00 09/22/18 06:36 Vitamin B-6 PO 100 mg DAILY [facility] Administration Senna/Docusate Sodium 2 tablet 09/19/18 18:00 09/22/18 06:38 Senokot-S, Kandi-Colace PO 2 tablet BID [facility] Administration Sodium Chloride 10 - 20 ml 09/19/18 22:35 09/22/18 04:54 IV 10 ml UD PRN Administration PICC FLUSH Tuberculin PPD 5 tu 09/27/18 10:00 Tubersol, Aplisol, Ppd ID 09/27/18 10:01 X1 ONE Zinc Sulfate 220 mg 09/20/18 06:00 09/22/18 06:38 Zinc Sulfate PO 220 mg DAILY [facility] Administration Problem List Acute left [employer]ER stroke (Acute) Delirium (Acute) Retroperitoneal hemorrhage (Acute) VRE bacteremia (Acute) Acute blood loss anemia (Acute) Abnormal EKG (Acute) Atrial fibrillation (Chronic) Diabetes mellitus (Chronic) Hypertension (Chronic) Osteoarthritis (Chronic) Coronary artery disease (Acute) Gout (Chronic) Hyperlipidemia (Chronic) Lumbar spinal stenosis (Chronic) Myelodysplasia (myelodysplastic syndrome) (Chronic) Obstructive sleep apnea (Chronic) Cholelithiases (Chronic) Choledocholithiasis (Chronic) Vital Signs Temp Pulse Resp BP Pulse Ox 97.1 F L 108 H 18 129/66 H 98 09/22/18 16:00 09/22/18 16:00 09/22/18 16:00 09/22/18 16:00 09/22/18 16:00 Oxygen Delivery Method Room Air Weight: 132.619 kg Body Mass Index (BMI) 35.9 Sodium 137 mmol/L (136-145) 09/20/18 05:20 Potassium 4.2 mmol/L (3.5-5.1) 09/20/18 05:20 Chloride 104 mmol/L (98-107) 09/20/18 05:20 Carbon Dioxide 26.0 mmol/L (21.0-32.0) 09/20/18 05:20 Anion Gap 7 (5-15) 09/20/18 05:20 BUN 91 mg/dL (7-18) H 09/20/18 05:20 Creatinine 2.60 mg/dL (0.70-1.30) H 09/20/18 05:20 Est GFR (MDRD) Af Amer 31 mL/min (>60) L 09/20/18 05:20 Est GFR (MDRD) Non-Af 26 mL/min (>60) L 09/20/18 05:20 BUN/Creatinine Ratio 35.0 RATIO (10-20) H 09/20/18 05:20 Glucose 202 mg/dL (74-106) H 09/20/18 05:20 Assessment/Plan: Psychotropic Medications: Unnecessary Medications: Bowel Regimen: - Provider Comments Provider responsibility: Provider responsible to enter orders to implement recommendations Provider Comments to Recommendations by Pharmacy: Agree
[2018-09-22 16:00] VITALS: BP 129/66; PULSE 108; RESP 18; TEMP 36.2; O2SAT 98
[2018-09-22 17:27] VITALS: BP 129/66; PULSE 108
[2018-09-22 17:28] VITALS: BP 129/66; PULSE 108
[2018-09-22 22:00] VITALS: PULSE 80; RESP 16; O2SAT 98
[2018-09-22] MEDS: Atorvastatin Calcium 20 MG Tablet PO (22:06)
[2018-09-23] MEDS: Bisacodyl 10 MG Suppository RECTAL (03:43)
[2018-09-23] MEDS: Polyethylene Glycol 3350 17 GM PACKET PO (04:01)
[2018-09-23] MEDS: hydroCHLOROthiazide 25 MG Tablet PO (04:03)
[2018-09-23] MEDS: Doxazosin 4 MG Tablet PO (04:03)
[2018-09-23] MEDS: Citalopram 10 MG Tablet PO (04:03)
[2018-09-23] MEDS: Furosemide 40 MG Tablet 60 MG PO (04:04)
[2018-09-23] MEDS: Menthol/Lanolin/Calamine/Znox 113 GM Tube 1 APPLIC TOPICAL ×2 (04:04→20:55)
[2018-09-23] MEDS: Pantoprazole Sodium 40 MG Tablet PO (04:05)
[2018-09-23] MEDS: Senna/Docusate Sodium 1 Tablet 2 TABLET PO ×2 (04:05→17:12)
[2018-09-23 04:06] VITALS: BP 107/67; PULSE 76
[2018-09-23] MEDS: Metoprolol(XL)Succ 100 MG Tablet PO ×2 (04:06→17:12)
[2018-09-23] MEDS: LINAGLIPTIN 5 MG TABLET PO (04:07)
[2018-09-23] MEDS: Pyridoxine HCl 100 MG Tablet PO (04:07)
[2018-09-23] MEDS: Ascorbic Acid 500 MG Tablet 250 MG PO ×2 (04:07→17:13)
[2018-09-23 04:08] VITALS: BP 107/67; PULSE 76
[2018-09-23] MEDS: hydrALAZINE 50 MG Tablet PO ×2 (04:08→17:12)
[2018-09-23] MEDS: dilTIAZem CD 180 MG Capsule PO ×2 (04:08→17:12)
[2018-09-23] MEDS: Nystatin Powder 15gm Bottle 1 APPLIC TOPICAL ×3 (04:10→20:55)
[2018-09-23 06:30] VITALS: PULSE 76; RESP 18; O2SAT 95
[2018-09-23 06:41] LABS: Bedside Glucose 148 mg/dL (70-110)
[2018-09-23] MEDS: Multivitamins,Ther W-Minerals Tablet 1 TABLET PO ×2 (08:05→17:12)
[2018-09-23] MEDS: Glimepiride 1 MG Tablet PO (08:05)
[2018-09-23] MEDS: Aspirin E.C. 81 MG Tablet PO (08:05)
[2018-09-23] MEDS: Allopurinol 100 MG Tablet PO (08:05)
[2018-09-23] MEDS: Iron Polysaccharide Complex 150 MG CAPSULE PO ×2 (08:05→17:12)
--- NOTE | 2018-09-23 08:42 | NURSING ---
Patient's urine cloudy and green/yellow in color, increased confusion. Dr. Ni updated, order for SC UA C&S.
[2018-09-23] MEDS: Ciprofloxacin 500 MG Tablet PO (09:40)
--- NOTE | 2018-09-23 10:41 | NURSING ---
PT STRAIGHT CATHED,URINE,CLOUDY,WHITE/YELLOW,GREEN TINT. NORMAL SMELL. OUT PUT OF 1000. REPORTED TO GURU TINOCO. GURU TINOCO STATED TO START BLADDER SCAN AFTER EACH VOID.
[2018-09-23] MEDS: Cyanocobalamin (B12) 1,000 MCG/ML Vial 1000 MCG IM (11:15)
--- NOTE | 2018-09-23 14:44 | CASEMGMT ---
Social Work Plan of care meeting held today with pt and present. Pt is receiving PT/OT/ST and participating. No d/c date set at this time. Pt is planning to return home with his at time of discharge. Will continue with treatment plan. MAGGIE Yu
[2018-09-23 16:00] VITALS: BP 117/77; PULSE 108; RESP 20; TEMP 36.1; O2SAT 97
[2018-09-23 16:11] LABS: Mucous, Urine 0 SEEN /hpf (<or=2+); Squamous Epithelial Cells - UA 0 SEEN /hpf (0-5)
--- NOTE | 2018-09-23 16:18 | NURSING ---
BLADDER SCANNED PT FOR 582, STRAIGHT CATHED FOR 580. GURU TINOCO AWARE
[2018-09-23 17:00] LABS: Color, Urine Yellow (Yellow); Glucose, Dipstick Normal (Normal); Ketone-Dipstick Negative (Negative); Leukocyte Esterase-Dipstick 500 /ul (Negative); Nitrite-Dipstick Negative (Negative); Occult Blood-Urine 50 /ul (Negative); Protein-Dipstick 30 mg/dl (Negative); Specific Gravity, Urine 1.005 (1.002-1.030); Urine Bilirubin Dipstick Negative (Negative); Urine Clarity Cloudy (Clear); Urine Urobilinogen Normal (Normal)
[2018-09-23 17:12] VITALS: BP 117/77; PULSE 108
[2018-09-23 17:22] LABS: Red Blood Cells-Urine 5-10 SEEN /hpf (0-5); White Blood Cells >100 SEEN /hpf (0-5)
[2018-09-23 17:23] LABS: Bacteria 1+ /hpf (None Seen)
--- NOTE | 2018-09-23 18:52 | NURSING ---
Dr. Ni made aware of UA results, continue Cipro.
[2018-09-23] MEDS: Atorvastatin Calcium 20 MG Tablet PO (20:56)
--- NOTE | 2018-09-23 22:45 | NURSING ---
Pt has not voided since being straight cathed at 1600 for urine speci. Bladder scanned at this time for 380cc. Dr Ni aware. N.O. for Flomax 0.4mg x1 dose now, and then daily @ 1700, also to insert Hill catheter and DC Hill catheter Friday morning.
--- NOTE | 2018-09-23 23:37 | NURSING ---
Hill catheter 16FR inserted at this time per order. Pt tolerated procedure well.
[2018-09-23] MEDS: Tamsulosin HCl 0.4 MG Capsule PO (23:39)
[2018-09-24] MEDS: Acetaminophen 500 MG Tablet 1000 MG PO ×2 (02:09→21:13)
[2018-09-24] MEDS: Ciprofloxacin 500 MG Tablet PO ×2 (02:10→21:15)
[2018-09-24] MEDS: Ascorbic Acid 500 MG Tablet 250 MG PO ×2 (04:54→16:44)
[2018-09-24] MEDS: Polyethylene Glycol 3350 17 GM PACKET PO (04:54)
[2018-09-24 04:55] VITALS: BP 113/72; PULSE 78
[2018-09-24] MEDS: Pyridoxine HCl 100 MG Tablet PO (04:55)
[2018-09-24] MEDS: Metoprolol(XL)Succ 100 MG Tablet PO (04:55)
[2018-09-24] MEDS: LINAGLIPTIN 5 MG TABLET PO (04:55)
[2018-09-24] MEDS: Senna/Docusate Sodium 1 Tablet 2 TABLET PO ×2 (04:55→16:44)
[2018-09-24] MEDS: Pantoprazole Sodium 40 MG Tablet PO (04:56)
[2018-09-24] MEDS: Furosemide 40 MG Tablet 60 MG PO (04:56)
[2018-09-24] MEDS: Citalopram 10 MG Tablet PO (04:57)
[2018-09-24] MEDS: dilTIAZem CD 180 MG Capsule PO (04:58)
[2018-09-24] MEDS: Doxazosin 4 MG Tablet PO (04:58)
[2018-09-24 04:59] VITALS: BP 113/72; PULSE 78
[2018-09-24] MEDS: hydrALAZINE 50 MG Tablet PO (04:59)
[2018-09-24] MEDS: Menthol/Lanolin/Calamine/Znox 113 GM Tube 1 APPLIC TOPICAL ×2 (05:01→21:14)
[2018-09-24] MEDS: Bisacodyl 10 MG Suppository RECTAL (05:01)
[2018-09-24] MEDS: hydroCHLOROthiazide 25 MG Tablet PO (05:01)
[2018-09-24] MEDS: Nystatin Powder 15gm Bottle 1 APPLIC TOPICAL ×3 (05:02→21:15)
[2018-09-24 06:51] LABS: Bedside Glucose 148 mg/dL (70-110)
[2018-09-24] MEDS: Glimepiride 1 MG Tablet PO (08:38)
[2018-09-24] MEDS: Iron Polysaccharide Complex 150 MG CAPSULE PO ×2 (08:38→16:51)
[2018-09-24] MEDS: Aspirin E.C. 81 MG Tablet PO (08:38)
[2018-09-24] MEDS: Allopurinol 100 MG Tablet PO (08:38)
[2018-09-24] MEDS: Multivitamins,Ther W-Minerals Tablet 1 TABLET PO ×2 (08:38→16:47)
--- NOTE | 2018-09-24 09:39 | NURSING ---
Pt working with therapy c/o feeling light headed and that his chest feels tight. Pt HR 77 BP 104/55 sp02 98%. Pt HR is irregular, Pt has HX of AFIB. Pt in bed with HOB elevated at this time. Bob GARVEY notified. Will continue to monitor
[2018-09-24 10:00] VITALS: PULSE 84; RESP 18; O2SAT 98
[2018-09-24 15:39] VITALS: BP 91/52; PULSE 68; RESP 18; TEMP 36.8; O2SAT 99
[2018-09-24] MEDS: Atorvastatin Calcium 20 MG Tablet PO (21:14)
[2018-09-24] MEDS: 0.9% NaCl PICC Flush IV (23:22)
[2018-09-25] MEDS: Bisacodyl 10 MG Suppository RECTAL (05:07)
[2018-09-25 05:19] VITALS: BP 128/60; PULSE 78
[2018-09-25] MEDS: hydrALAZINE 50 MG Tablet PO ×2 (05:19→16:52)
[2018-09-25] MEDS: hydroCHLOROthiazide 25 MG Tablet PO (05:19)
[2018-09-25] MEDS: Furosemide 40 MG Tablet 60 MG PO (05:20)
[2018-09-25] MEDS: Pantoprazole Sodium 40 MG Tablet PO (05:20)
[2018-09-25 05:21] VITALS: BP 128/60; PULSE 78
[2018-09-25] MEDS: Metoprolol(XL)Succ 100 MG Tablet PO ×2 (05:21→16:56)
[2018-09-25] MEDS: Doxazosin 4 MG Tablet PO (05:21)
[2018-09-25] MEDS: Citalopram 10 MG Tablet PO (05:21)
[2018-09-25] MEDS: Senna/Docusate Sodium 1 Tablet 2 TABLET PO ×2 (05:21→16:55)
[2018-09-25] MEDS: dilTIAZem CD 180 MG Capsule PO ×2 (05:21→16:55)
[2018-09-25] MEDS: Menthol/Lanolin/Calamine/Znox 113 GM Tube 1 APPLIC TOPICAL ×2 (05:22→21:44)
[2018-09-25] MEDS: Nystatin Powder 15gm Bottle 1 APPLIC TOPICAL ×3 (05:22→21:44)
[2018-09-25] MEDS: LINAGLIPTIN 5 MG TABLET PO (05:22)
[2018-09-25] MEDS: Polyethylene Glycol 3350 17 GM PACKET PO (05:22)
[2018-09-25] MEDS: Pyridoxine HCl 100 MG Tablet PO (05:23)
[2018-09-25] MEDS: Ascorbic Acid 500 MG Tablet 250 MG PO ×2 (05:23→16:56)
[2018-09-25 06:36] LABS: Bedside Glucose 137 mg/dL (70-110)
[2018-09-25] MEDS: Multivitamins,Ther W-Minerals Tablet 1 TABLET PO ×2 (08:44→16:52)
[2018-09-25] MEDS: Aspirin E.C. 81 MG Tablet PO (08:44)
[2018-09-25] MEDS: Glimepiride 1 MG Tablet PO (08:45)
[2018-09-25] MEDS: Allopurinol 100 MG Tablet PO (08:45)
[2018-09-25] MEDS: Iron Polysaccharide Complex 150 MG CAPSULE PO ×2 (08:45→16:53)
--- NOTE | 2018-09-25 11:43 | NURSING ---
pt final urine culture showed pseudomonas less than 1000. Dr Ni updated, no new orders.
--- NOTE | 2018-09-25 13:32 | CASEMGMT ---
Addendum entered by Bri Culp 09/25/18 13:57: Student director social welfare MDS documentation reviewed. MAGGIE Yu Original Note: Brief interview for mental status (BIMS) and mood (PHQ-9) completed on this day. BIMS score 05/16. PHQ-9 score 09/26. Hebert Mares social work student
--- NOTE | 2018-09-25 14:53 | MDS.RN ---
Pain interview for yaakov 09/26/18 completed.
[2018-09-25 15:53] VITALS: BP 124/57; PULSE 101; RESP 20; TEMP 36.7; O2SAT 99
[2018-09-25 16:52] VITALS: BP 124/57; PULSE 101
[2018-09-25] MEDS: Tamsulosin HCl 0.4 MG Capsule PO (16:54)
[2018-09-25 16:56] VITALS: BP 124/57; PULSE 101
[2018-09-25] MEDS: 0.9% NaCl PICC Flush IV (21:44)
[2018-09-25] MEDS: Atorvastatin Calcium 20 MG Tablet PO (21:45)
[2018-09-25 21:54] VITALS: PULSE 85; RESP 18; O2SAT 96
[2018-09-26 05:15] VITALS: BP 118/52; PULSE 86
[2018-09-26] MEDS: hydroCHLOROthiazide 25 MG Tablet PO (05:15)
[2018-09-26] MEDS: Citalopram 10 MG Tablet PO (05:15)
[2018-09-26] MEDS: Metoprolol(XL)Succ 100 MG Tablet PO ×2 (05:15→17:50)
[2018-09-26 05:16] VITALS: BP 118/52; PULSE 86
[2018-09-26] MEDS: Pantoprazole Sodium 40 MG Tablet PO (05:16)
[2018-09-26] MEDS: Senna/Docusate Sodium 1 Tablet 2 TABLET PO (05:16)
[2018-09-26] MEDS: Furosemide 40 MG Tablet 60 MG PO (05:16)
[2018-09-26] MEDS: Pyridoxine HCl 100 MG Tablet PO (05:16)
[2018-09-26] MEDS: Ascorbic Acid 500 MG Tablet 250 MG PO ×2 (05:16→17:46)
[2018-09-26] MEDS: hydrALAZINE 50 MG Tablet PO ×2 (05:16→17:50)
[2018-09-26] MEDS: dilTIAZem CD 180 MG Capsule PO ×2 (05:17→17:45)
[2018-09-26] MEDS: Menthol/Lanolin/Calamine/Znox 113 GM Tube 1 APPLIC TOPICAL ×2 (05:17→21:35)
[2018-09-26] MEDS: LINAGLIPTIN 5 MG TABLET PO (05:17)
[2018-09-26] MEDS: Doxazosin 4 MG Tablet PO (05:17)
[2018-09-26] MEDS: Nystatin Powder 15gm Bottle 1 APPLIC TOPICAL ×3 (05:17→21:36)
[2018-09-26] MEDS: Bisacodyl 10 MG Suppository RECTAL (05:19)
[2018-09-26] MEDS: Polyethylene Glycol 3350 17 GM PACKET PO (05:20)
[2018-09-26 06:51] LABS: Bedside Glucose 153 mg/dL (70-110)
[2018-09-26] MEDS: Glimepiride 1 MG Tablet PO (08:30)
[2018-09-26] MEDS: Iron Polysaccharide Complex 150 MG CAPSULE PO ×2 (08:31→17:45)
[2018-09-26] MEDS: Multivitamins,Ther W-Minerals Tablet 1 TABLET PO ×2 (08:32→17:45)
[2018-09-26] MEDS: Aspirin E.C. 81 MG Tablet PO (08:33)
[2018-09-26] MEDS: Allopurinol 100 MG Tablet PO (08:33)
[2018-09-26 15:40] VITALS: BP 115/51; PULSE 73; RESP 18; TEMP 36.2; O2SAT 100
[2018-09-26] MEDS: Tamsulosin HCl 0.4 MG Capsule PO (17:46)
[2018-09-26 17:50] VITALS: BP 115/51; PULSE 73
[2018-09-26] MEDS: Atorvastatin Calcium 20 MG Tablet PO (21:36)
[2018-09-27] VITALS (8 sets, daily range): BP systolic 105–124; BP diastolic 44–72; PULSE 70–95; RESP 18–20; TEMP 36.4–36.8; O2SAT 99–100
[2018-09-27 05:04] LABS: Absolute Lymphocyte Count 0.76 X10^3/ul (0.83-4.51); Absolute Neutrophil Count 5.7 X10^3/uL (2.0-7.7); Basophil# 0.01 X10^3/uL; Basophil% 0.1 % (0-1); Eosinophil# 0.41 X10^3/uL; Eosinophils% 5.5 % (0-5); Hematocrit 21.6 % (40-54); Hemoglobin 6.8 g/dl (13.0-16.5); Lymphocyte # 0.76 X10^3/ul (4.0); Lymphocyte % 10.2 % (19-41); Mean Corp Hgb Conc 31.5 g/gl (32-36); Mean Corpuscular Hgb 31.3 pg (27.0-32.0); Mean Corpuscular Volume 99.5 fL (80-94); Mean Platelet Vol. 7.7 fl (6.2-12.0); Monocyte# 0.56 X10^3/uL; Monocyte% 7.5 % (0-10); Neutrophil # 5.65 X10^3/uL (2.7-7.7); Neutrophil % 76.2 % (47-70); Platelet Count 149 K/mm3 (150-450); RBC Distribution Width CV 18.4 % (11.6-14.6); RBC Distribution Width SD 61.8 fl (35.1-43.9); Red Blood Count 2.17 M/mm3 (4.6-6.2); White Blood Count 7.4 K/mm3 (4.4-11.0)
[2018-09-27 05:05] LABS: POSITIVE COUNT NO; POSITIVE DIFFERENTIAL NO; POSITIVE MORPHOLOGY NO
[2018-09-27 05:32] LABS: Anion Gap 8 (5-15); BUN 112 mg/dL (7-18); BUN/Creat Ratio 46.7 RATIO (10-20); Chloride 104 mmol/L (98-107); EST Glomerular Filtration Rate 28 mL/min (>60); Est Glom Filt Rate - Afr Amer 34 mL/min (>60); Estimated Creatinine Clearance 32.76 ml/min; Glucose 164 mg/dL (74-106); Potassium 3.2 mmol/L (3.5-5.1); Sodium Level 142 mmol/L (136-145)
[2018-09-27] MEDS: Menthol/Lanolin/Calamine/Znox 113 GM Tube 1 APPLIC TOPICAL ×2 (06:38→22:40)
[2018-09-27] MEDS: hydroCHLOROthiazide 25 MG Tablet PO (06:39)
[2018-09-27] MEDS: Nystatin Powder 15gm Bottle 1 APPLIC TOPICAL ×3 (06:39→22:40)
[2018-09-27] MEDS: Furosemide 40 MG Tablet 60 MG PO (06:39)
[2018-09-27] MEDS: Pantoprazole Sodium 40 MG Tablet PO (06:39)
[2018-09-27] MEDS: Citalopram 10 MG Tablet PO (06:40)
[2018-09-27] MEDS: Ascorbic Acid 500 MG Tablet 250 MG PO ×2 (06:40→15:59)
[2018-09-27] MEDS: Bisacodyl 10 MG Suppository RECTAL (06:40)
[2018-09-27 06:41] LABS: Bedside Glucose 164 mg/dL (70-110)
[2018-09-27] MEDS: Pyridoxine HCl 100 MG Tablet PO (06:42)
[2018-09-27] MEDS: Doxazosin 4 MG Tablet PO (06:42)
[2018-09-27] MEDS: hydrALAZINE 50 MG Tablet PO ×2 (06:42→15:59)
[2018-09-27] MEDS: Polyethylene Glycol 3350 17 GM PACKET PO (06:43)
[2018-09-27] MEDS: dilTIAZem CD 180 MG Capsule PO ×2 (06:43→15:59)
[2018-09-27] MEDS: Senna/Docusate Sodium 1 Tablet 2 TABLET PO ×2 (06:44→15:59)
[2018-09-27] MEDS: Metoprolol(XL)Succ 100 MG Tablet PO ×2 (06:44→16:01)
[2018-09-27] MEDS: LINAGLIPTIN 5 MG TABLET PO (06:45)
--- NOTE | 2018-09-27 06:47 | NURSING ---
Pt c/o 'extremely dry sinuses' from cpap machine. Interested in saline nasal spray. RN aware.
[2018-09-27] MEDS: Multivitamins,Ther W-Minerals Tablet 1 TABLET PO ×2 (08:37→16:01)
[2018-09-27] MEDS: Allopurinol 100 MG Tablet PO (08:37)
[2018-09-27] MEDS: Iron Polysaccharide Complex 150 MG CAPSULE PO ×2 (08:37→15:59)
[2018-09-27] MEDS: Aspirin E.C. 81 MG Tablet PO (08:37)
[2018-09-27] MEDS: Glimepiride 1 MG Tablet PO (08:37)
--- NOTE | 2018-09-27 10:06 | NURSING ---
Dr. Ni reviewed labs, NO for stool for guiac, potassium 40mEq x1 now then 40mEq daily, recheck BMP Friday, saline nasal spray PRN.
[2018-09-27] MEDS: Tuberculin,Purif.prot.deriv. 50 TU/ML Vial 5 ML ID (11:30)
--- NOTE | 2018-09-27 14:49 | NURSING ---
pt up in chair. notified will be receiving unit PRBC. questions answered
[2018-09-27] MEDS: Tamsulosin HCl 0.4 MG Capsule PO (16:01)
--- NOTE | 2018-09-27 16:34 | NURSING ---
Addendum entered by Ellie Penn 09/27/18 22:43: Pt returned back to floor at 2235. Original Note: Patient taken to [facility] for blood transfusion, report called to RN on [facility].
[2018-09-27] MEDS: Atorvastatin Calcium 20 MG Tablet PO (22:40)
[2018-09-28] MEDS: Menthol/Lanolin/Calamine/Znox 113 GM Tube 1 APPLIC TOPICAL ×2 (06:02→21:40)
[2018-09-28] MEDS: Sodium Chloride 0.65% 1 SPRAY SPRAY.BTL 2 SPRAY NASAL (06:05)
[2018-09-28 06:07] VITALS: PULSE 84
[2018-09-28] MEDS: Doxazosin 4 MG Tablet PO (06:07)
[2018-09-28] MEDS: hydrALAZINE 50 MG Tablet PO ×2 (06:07→17:30)
[2018-09-28] MEDS: dilTIAZem CD 180 MG Capsule PO ×2 (06:07→17:30)
[2018-09-28] MEDS: Pantoprazole Sodium 40 MG Tablet PO (06:08)
[2018-09-28] MEDS: Citalopram 10 MG Tablet PO (06:08)
[2018-09-28] MEDS: Furosemide 40 MG Tablet 60 MG PO (06:08)
[2018-09-28] MEDS: Senna/Docusate Sodium 1 Tablet 2 TABLET PO ×2 (06:08→17:30)
[2018-09-28 06:09] VITALS: PULSE 84
[2018-09-28] MEDS: Bisacodyl 10 MG Suppository RECTAL (06:09)
[2018-09-28] MEDS: Metoprolol(XL)Succ 100 MG Tablet PO ×2 (06:09→17:30)
[2018-09-28] MEDS: hydroCHLOROthiazide 25 MG Tablet PO (06:09)
[2018-09-28] MEDS: Pyridoxine HCl 100 MG Tablet PO (06:09)
[2018-09-28] MEDS: LINAGLIPTIN 5 MG TABLET PO (06:09)
[2018-09-28] MEDS: Polyethylene Glycol 3350 17 GM PACKET PO (06:10)
[2018-09-28] MEDS: Nystatin Powder 15gm Bottle 1 APPLIC TOPICAL ×3 (06:10→21:41)
[2018-09-28] MEDS: Ascorbic Acid 500 MG Tablet 250 MG PO ×2 (06:11→17:31)
[2018-09-28 06:51] LABS: Bedside Glucose 175 mg/dL (70-110)
--- NOTE | 2018-09-28 07:07 | NURSING ---
Per order, nursing to DC bonner catheter this morning. Explained procedure to pt and pt refusing at this time. Pt stated after all that I have been through lately (blood transfusion yesterday) and I'm worried that I won't be able to go. Pt would like to wait til Friday (09/29) morning.
[2018-09-28] MEDS: Glimepiride 1 MG Tablet PO (08:11)
[2018-09-28] MEDS: Multivitamins,Ther W-Minerals Tablet 1 TABLET PO ×2 (08:11→17:30)
[2018-09-28] MEDS: Allopurinol 100 MG Tablet PO (08:11)
[2018-09-28] MEDS: Iron Polysaccharide Complex 150 MG CAPSULE PO ×2 (08:11→17:31)
[2018-09-28] MEDS: Aspirin E.C. 81 MG Tablet PO (08:11)
[2018-09-28 11:20] VITALS: PULSE 106; RESP 18; O2SAT 98
[2018-09-28] MEDS: 0.9% NaCl PICC Flush IV ×2 (11:37→21:48)
[2018-09-28] MEDS: Acetaminophen 500 MG Tablet 1000 MG PO (13:23)
--- NOTE | 2018-09-28 14:27 | NURSING ---
NOTICED SMALL SORE ON PT FORE SKIN. BERTT APPLIED. REPORTED TO GURU VALENTE
[2018-09-28 15:37] VITALS: BP 120/54; PULSE 70; RESP 18; TEMP 36.4; O2SAT 100
[2018-09-28 17:30] VITALS: BP 120/54; PULSE 70
[2018-09-28] MEDS: Tamsulosin HCl 0.4 MG Capsule PO (17:31)
[2018-09-28] MEDS: Atorvastatin Calcium 20 MG Tablet PO (21:45)
[2018-09-28 22:39] LABS: Hematocrit 24.2 % (40-54); Hemoglobin 7.9 g/dl (13.0-16.5)
[2018-09-29] VITALS (7 sets, daily range): BP systolic 95–126; BP diastolic 54–56; PULSE 59–70; RESP 16–20; TEMP 36.2; O2SAT 97–98
[2018-09-29] MEDS: 0.9% NaCl PICC Flush IV ×2 (05:19→09:16)
[2018-09-29] MEDS: Bisacodyl 10 MG Suppository RECTAL (05:25)
[2018-09-29] MEDS: Polyethylene Glycol 3350 17 GM PACKET PO (05:28)
[2018-09-29] MEDS: Ascorbic Acid 500 MG Tablet 250 MG PO (05:31)
[2018-09-29] MEDS: Senna/Docusate Sodium 1 Tablet 2 TABLET PO ×2 (05:32→18:18)
[2018-09-29] MEDS: Doxazosin 4 MG Tablet PO (05:32)
[2018-09-29] MEDS: LINAGLIPTIN 5 MG TABLET PO (05:32)
[2018-09-29] MEDS: Furosemide 40 MG Tablet 60 MG PO (05:32)
[2018-09-29] MEDS: Pyridoxine HCl 100 MG Tablet PO (05:33)
[2018-09-29] MEDS: dilTIAZem CD 180 MG Capsule PO ×2 (05:33→18:18)
[2018-09-29] MEDS: Pantoprazole Sodium 40 MG Tablet PO (05:33)
[2018-09-29] MEDS: Citalopram 10 MG Tablet PO (05:34)
[2018-09-29] MEDS: hydroCHLOROthiazide 25 MG Tablet PO (05:34)
[2018-09-29] MEDS: Nystatin Powder 15gm Bottle 1 APPLIC TOPICAL ×3 (05:35→21:00)
[2018-09-29] MEDS: Menthol/Lanolin/Calamine/Znox 113 GM Tube 1 APPLIC TOPICAL ×2 (05:35→21:01)
[2018-09-29] MEDS: hydrALAZINE 50 MG Tablet PO (05:36)
[2018-09-29] MEDS: Metoprolol(XL)Succ 100 MG Tablet PO (05:36)
[2018-09-29 05:52] LABS: Anion Gap 9 (5-15); BUN 115 mg/dL (7-18); BUN/Creat Ratio 49.1 RATIO (10-20); Chloride 99 mmol/L (98-107); Creatinine, Serum 2.34 mg/dL (0.70-1.30); EST Glomerular Filtration Rate 29 mL/min (>60); Est Glom Filt Rate - Afr Amer 35 mL/min (>60); Glucose 164 mg/dL (74-106); Potassium 3.2 mmol/L (3.5-5.1); Sodium Level 138 mmol/L (136-145)
[2018-09-29 06:36] LABS: Bedside Glucose 151 mg/dL (70-110)
--- NOTE | 2018-09-29 07:15 | NURSING ---
Hill catheter remover per doctor order. Pt denies any pain or discomfort at this time.
[2018-09-29] MEDS: Aspirin E.C. 81 MG Tablet PO (08:33)
[2018-09-29] MEDS: Iron Polysaccharide Complex 150 MG CAPSULE PO ×2 (08:33→18:17)
[2018-09-29] MEDS: Glimepiride 1 MG Tablet PO (08:33)
[2018-09-29] MEDS: Multivitamins,Ther W-Minerals Tablet 1 TABLET PO ×2 (08:33→18:18)
[2018-09-29] MEDS: Allopurinol 100 MG Tablet PO (08:33)
[2018-09-29] MEDS: 0.9% Normal Saline 1,000 ML 60 ML IV (09:08)
--- NOTE | 2018-09-29 09:41 | NURSING ---
DR MCPHERSON REVIEWED LABS, POTASSIUM INCREASED TO 40MEQ.
--- NOTE | 2018-09-29 09:44 | NURSING ---
DR MCPHERSON REVIEWED LABS, NEW ORDER TO RECHECK H/H ON FRIDAY. TOO HIGH RISK FOR EGD/COLONOSCOPY D/T RECENT STROKE
--- NOTE | 2018-09-29 14:21 | NURSING ---
Unable to assess buttock. Pt is in the activities room at this time.
--- NOTE | 2018-09-29 18:13 | NURSING ---
PT BP 107/[address] MCPHERSON NOTIFIED, NEW ORDERS HOLD LOPRESSOR, DC APRESOLINE & GIVE CARDIZEM.
[2018-09-29] MEDS: Tamsulosin HCl 0.4 MG Capsule PO (18:17)
--- NOTE | 2018-09-29 19:17 | NURSING ---
Addendum entered by Carmel Dallas 09/30/18 03:27: Patient has not voided since being straight cathed. Bladder scanned at this time for 546. Dr. Ni notified. Orders given to reinserbenji Hill Original Note: STRAIGHT CATHED PT FOR 750 CC. GURU SARAH AWARE
[2018-09-29] MEDS: Atorvastatin Calcium 20 MG Tablet PO (21:00)
[2018-09-30] MEDS: 0.9% Normal Saline 1,000 ML 60 ML IV ×2 (01:52→18:23)
--- NOTE | 2018-09-30 03:38 | NURSING ---
Hill catheter 16FR inserted per order for retention. Pt tolerated procedure well. 450cc of clear, yellow urine initially flowed.
[2018-09-30 05:26] LABS: Anion Gap 9 (5-15); BUN 123 mg/dL (7-18); BUN/Creat Ratio 56.7 RATIO (10-20); Calcium,Total 8.9 mg/dL (8.5-10.1); Chloride 101 mmol/L (98-107); Creatinine, Serum 2.17 mg/dL (0.70-1.30); EST Glomerular Filtration Rate 32 mL/min (>60); Est Glom Filt Rate - Afr Amer 39 mL/min (>60); Estimated Creatinine Clearance 36.24 ml/min; Glucose 194 mg/dL (74-106); Potassium 3.3 mmol/L (3.5-5.1); Sodium Level 139 mmol/L (136-145)
[2018-09-30] MEDS: Furosemide 40 MG Tablet 60 MG PO (05:47)
[2018-09-30] MEDS: Polyethylene Glycol 3350 17 GM PACKET PO (05:47)
[2018-09-30] MEDS: hydroCHLOROthiazide 25 MG Tablet PO (05:47)
[2018-09-30] MEDS: Senna/Docusate Sodium 1 Tablet 2 TABLET PO ×2 (05:48→18:19)
[2018-09-30] MEDS: Pyridoxine HCl 100 MG Tablet PO (05:48)
[2018-09-30] MEDS: LINAGLIPTIN 5 MG TABLET PO (05:48)
[2018-09-30] MEDS: dilTIAZem CD 180 MG Capsule PO ×2 (05:49→18:18)
[2018-09-30] MEDS: Menthol/Lanolin/Calamine/Znox 113 GM Tube 1 APPLIC TOPICAL ×2 (05:51→21:55)
[2018-09-30] MEDS: Pantoprazole Sodium 40 MG Tablet PO (05:53)
[2018-09-30] MEDS: Doxazosin 4 MG Tablet PO (05:53)
[2018-09-30] MEDS: Citalopram 10 MG Tablet PO (05:54)
[2018-09-30] MEDS: Nystatin Powder 15gm Bottle 1 APPLIC TOPICAL ×3 (05:55→21:57)
[2018-09-30 05:56] VITALS: BP 115/64; PULSE 74
[2018-09-30] MEDS: Metoprolol(XL)Succ 100 MG Tablet PO ×2 (05:56→18:18)
[2018-09-30 06:35] LABS: Bedside Glucose 188 mg/dL (70-110)
[2018-09-30] MEDS: Aspirin E.C. 81 MG Tablet PO (09:24)
[2018-09-30] MEDS: Glimepiride 1 MG Tablet PO (09:24)
[2018-09-30] MEDS: Iron Polysaccharide Complex 150 MG CAPSULE PO ×2 (09:25→18:19)
[2018-09-30] MEDS: Multivitamins,Ther W-Minerals Tablet 1 TABLET PO ×2 (09:26→18:19)
[2018-09-30] MEDS: Allopurinol 100 MG Tablet PO (09:26)
[2018-09-30 12:23] LABS: Hematocrit 24.3 % (40-54)
--- NOTE | 2018-09-30 13:38 | MDS.RN ---
Information for the mds was obtained from review of the clinical record, interview of resident, staff, and direct observation of resident's care.
[2018-09-30 15:33] VITALS: BP 137/51; PULSE 68; RESP 18; TEMP 36.6; O2SAT 100
[2018-09-30 18:18] VITALS: BP 137/51; PULSE 68
[2018-09-30] MEDS: Tamsulosin HCl 0.4 MG Capsule PO (18:18)
[2018-09-30] MEDS: Atorvastatin Calcium 20 MG Tablet PO (21:55)
[2018-10-01] MEDS: Menthol/Lanolin/Calamine/Znox 113 GM Tube 1 APPLIC TOPICAL ×2 (07:11→21:34)
[2018-10-01] MEDS: hydroCHLOROthiazide 25 MG Tablet PO (07:12)
[2018-10-01] MEDS: dilTIAZem CD 180 MG Capsule PO ×2 (07:13→17:14)
[2018-10-01] MEDS: Senna/Docusate Sodium 1 Tablet 2 TABLET PO ×2 (07:13→17:14)
[2018-10-01] MEDS: LINAGLIPTIN 5 MG TABLET PO (07:14)
[2018-10-01] MEDS: Polyethylene Glycol 3350 17 GM PACKET PO (07:14)
[2018-10-01 07:15] VITALS: BP 120/60; PULSE 68
[2018-10-01] MEDS: Metoprolol(XL)Succ 100 MG Tablet PO ×2 (07:15→17:14)
[2018-10-01 07:16] LABS: Bedside Glucose 157 mg/dL (70-110)
[2018-10-01] MEDS: Nystatin Powder 15gm Bottle 1 APPLIC TOPICAL ×3 (07:16→21:34)
[2018-10-01] MEDS: Pantoprazole Sodium 40 MG Tablet PO (07:16)
[2018-10-01] MEDS: Furosemide 40 MG Tablet 60 MG PO (07:17)
[2018-10-01] MEDS: Citalopram 10 MG Tablet PO (07:20)
[2018-10-01] MEDS: Doxazosin 4 MG Tablet PO (07:21)
[2018-10-01] MEDS: Pyridoxine HCl 100 MG Tablet PO (07:23)
[2018-10-01] MEDS: Glimepiride 1 MG Tablet PO (08:52)
[2018-10-01] MEDS: Aspirin E.C. 81 MG Tablet PO (08:52)
[2018-10-01] MEDS: 0.9% Normal Saline 1,000 ML 60 ML IV ×2 (08:53→11:26)
[2018-10-01] MEDS: Multivitamins,Ther W-Minerals Tablet 1 TABLET PO ×2 (08:53→17:14)
[2018-10-01] MEDS: Allopurinol 100 MG Tablet PO (08:53)
[2018-10-01] MEDS: Iron Polysaccharide Complex 150 MG CAPSULE PO ×2 (09:17→17:15)
--- NOTE | 2018-10-01 14:40 | MDS.RN ---
Pain interview for yaakov 10/03/18 completed.
[2018-10-01 15:48] VITALS: BP 115/48; PULSE 86; RESP 18; TEMP 36.8; O2SAT 99
[2018-10-01 17:14] VITALS: BP 118/61; PULSE 70
[2018-10-01] MEDS: Tamsulosin HCl 0.4 MG Capsule PO (17:15)
[2018-10-01 21:00] VITALS: PULSE 74; RESP 16; O2SAT 95
[2018-10-01] MEDS: Atorvastatin Calcium 20 MG Tablet PO (21:36)
[2018-10-02] MEDS: 0.9% Normal Saline 1,000 ML 60 ML IV ×2 (05:42→22:17)
[2018-10-02] MEDS: Menthol/Lanolin/Calamine/Znox 113 GM Tube 1 APPLIC TOPICAL ×2 (05:44→21:48)
[2018-10-02] MEDS: Doxazosin 4 MG Tablet PO (05:45)
[2018-10-02] MEDS: Pantoprazole Sodium 40 MG Tablet PO (05:45)
[2018-10-02] MEDS: Citalopram 10 MG Tablet PO (05:45)
[2018-10-02] MEDS: dilTIAZem CD 180 MG Capsule PO ×2 (05:45→17:19)
[2018-10-02] MEDS: Senna/Docusate Sodium 1 Tablet 2 TABLET PO ×2 (05:45→17:19)
[2018-10-02] MEDS: Nystatin Powder 15gm Bottle 1 APPLIC TOPICAL ×3 (05:45→21:49)
[2018-10-02 05:46] VITALS: BP 128/74; PULSE 72
[2018-10-02] MEDS: Pyridoxine HCl 100 MG Tablet PO (05:46)
[2018-10-02] MEDS: Metoprolol(XL)Succ 100 MG Tablet PO ×2 (05:46→17:20)
[2018-10-02] MEDS: LINAGLIPTIN 5 MG TABLET PO (05:46)
[2018-10-02] MEDS: 0.9% NaCl PICC Flush IV ×2 (05:47→22:17)
[2018-10-02] MEDS: Furosemide 40 MG Tablet PO (05:47)
[2018-10-02] MEDS: Polyethylene Glycol 3350 17 GM PACKET PO (05:47)
[2018-10-02 06:04] LABS: Hemoglobin 7.7 g/dl (13.0-16.5)
[2018-10-02 06:46] LABS: Bedside Glucose 147 mg/dL (70-110)
[2018-10-02] MEDS: Glimepiride 1 MG Tablet PO (08:11)
[2018-10-02] MEDS: Aspirin E.C. 81 MG Tablet PO (08:11)
[2018-10-02] MEDS: Allopurinol 100 MG Tablet PO (08:11)
[2018-10-02] MEDS: Multivitamins,Ther W-Minerals Tablet 1 TABLET PO ×2 (08:11→17:19)
[2018-10-02] MEDS: Iron Polysaccharide Complex 150 MG CAPSULE PO ×2 (08:11→17:19)
[2018-10-02 10:30] VITALS: PULSE 77; RESP 18; O2SAT 99
--- NOTE | 2018-10-02 14:47 | NURSING ---
Had been in to see patient twice today to assess buttock. 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 nurse states open area is improved. will continue calmoseptine. will monitor when able.
[2018-10-02 16:00] VITALS: BP 118/46; PULSE 68; RESP 16; TEMP 36.6; O2SAT 99
[2018-10-02 17:20] VITALS: BP 118/46; PULSE 68
[2018-10-02] MEDS: Tamsulosin HCl 0.4 MG Capsule PO (17:20)
[2018-10-02] MEDS: Atorvastatin Calcium 20 MG Tablet PO (21:49)
[2018-10-03] MEDS: Sodium Chloride 0.65% 1 SPRAY SPRAY.BTL 2 SPRAY NASAL (01:20)
[2018-10-03] MEDS: Nystatin Powder 15gm Bottle 1 APPLIC TOPICAL ×3 (04:57→21:04)
[2018-10-03] MEDS: Menthol/Lanolin/Calamine/Znox 113 GM Tube 1 APPLIC TOPICAL ×2 (04:57→21:04)
[2018-10-03 04:58] VITALS: BP 133/66; PULSE 77
[2018-10-03] MEDS: LINAGLIPTIN 5 MG TABLET PO (04:58)
[2018-10-03] MEDS: Citalopram 10 MG Tablet PO (04:58)
[2018-10-03] MEDS: Metoprolol(XL)Succ 100 MG Tablet PO ×2 (04:58→17:02)
[2018-10-03] MEDS: Polyethylene Glycol 3350 17 GM PACKET PO (04:58)
[2018-10-03] MEDS: Senna/Docusate Sodium 1 Tablet 2 TABLET PO ×2 (04:59→17:00)
[2018-10-03] MEDS: Pantoprazole Sodium 40 MG Tablet PO (04:59)
[2018-10-03] MEDS: Doxazosin 4 MG Tablet PO (04:59)
[2018-10-03] MEDS: Furosemide 40 MG Tablet PO (04:59)
[2018-10-03] MEDS: dilTIAZem CD 180 MG Capsule PO ×2 (04:59→17:00)
[2018-10-03] MEDS: Pyridoxine HCl 100 MG Tablet PO (04:59)
[2018-10-03 09:41] LABS: Bedside Glucose 141 mg/dL (70-110)
[2018-10-03] MEDS: Multivitamins,Ther W-Minerals Tablet 1 TABLET PO ×2 (09:51→17:01)
[2018-10-03] MEDS: Iron Polysaccharide Complex 150 MG CAPSULE PO ×2 (09:52→17:01)
[2018-10-03] MEDS: Allopurinol 100 MG Tablet PO (09:52)
[2018-10-03] MEDS: Aspirin E.C. 81 MG Tablet PO (09:52)
[2018-10-03] MEDS: Glimepiride 1 MG Tablet PO (09:52)
--- NOTE | 2018-10-03 13:43 | PCA ---
Nail care done by SUPERVISOR [employer] Emerald, Nails soaked, Nails trimmed, Nails cleaned out
[2018-10-03] MEDS: 0.9% Normal Saline 1,000 ML 60 ML IV (14:38)
[2018-10-03 15:27] VITALS: BP 123/54; PULSE 73; RESP 18; TEMP 36.2; O2SAT 99
[2018-10-03] MEDS: Tamsulosin HCl 0.4 MG Capsule PO (17:01)
[2018-10-03 17:02] VITALS: BP 123/54; PULSE 73
[2018-10-03 21:00] VITALS: PULSE 68; RESP 18; O2SAT 98
[2018-10-03] MEDS: Atorvastatin Calcium 20 MG Tablet PO (21:06)
[2018-10-04] MEDS: 0.9% NaCl PICC Flush IV ×2 (05:08→19:33)
[2018-10-04 05:23] LABS: Absolute Lymphocyte Count 0.74 X10^3/ul (0.83-4.51); Absolute Neutrophil Count 6.2 X10^3/uL (2.0-7.7); Basophil# 0.01 X10^3/uL; Basophil% 0.1 % (0-1); Eosinophil# 0.29 X10^3/uL; Eosinophils% 3.8 % (0-5); Hematocrit 22.3 % (40-54); Lymphocyte # 0.74 X10^3/ul (4.0); Lymphocyte % 9.6 % (19-41); Mean Corp Hgb Conc 31.4 g/gl (32-36); Mean Corpuscular Hgb 31.5 pg (27.0-32.0); Mean Corpuscular Volume 100.5 fL (80-94); Mean Platelet Vol. 8.3 fl (6.2-12.0); Monocyte# 0.49 X10^3/uL; Monocyte% 6.4 % (0-10); Neutrophil # 6.15 X10^3/uL (2.7-7.7); Neutrophil % 79.8 % (47-70); Platelet Count 78 K/mm3 (150-450); RBC Distribution Width SD 66.1 fl (35.1-43.9); Red Blood Count 2.22 M/mm3 (4.6-6.2); White Blood Count 7.7 K/mm3 (4.4-11.0)
[2018-10-04 05:29] LABS: Differential Indicated SCAN CRITERIA MET; POSITIVE COUNT NO; POSITIVE DIFFERENTIAL NO; POSITIVE MORPHOLOGY YES
[2018-10-04] MEDS: Menthol/Lanolin/Calamine/Znox 113 GM Tube 1 APPLIC TOPICAL ×2 (05:32→21:32)
[2018-10-04] MEDS: Nystatin Powder 15gm Bottle 1 APPLIC TOPICAL ×3 (05:32→21:32)
[2018-10-04] MEDS: LINAGLIPTIN 5 MG TABLET PO (05:33)
[2018-10-04] MEDS: Doxazosin 4 MG Tablet PO (05:33)
[2018-10-04] MEDS: Furosemide 40 MG Tablet PO (05:33)
[2018-10-04] MEDS: Polyethylene Glycol 3350 17 GM PACKET PO (05:33)
[2018-10-04] MEDS: Pyridoxine HCl 100 MG Tablet PO (05:33)
[2018-10-04 05:34] LABS: Anion Gap 8 (5-15); BUN 92 mg/dL (7-18); BUN/Creat Ratio 57.5 RATIO (10-20); Calcium,Total 8.6 mg/dL (8.5-10.1); Chloride 109 mmol/L (98-107); EST Glomerular Filtration Rate 45 mL/min (>60); Est Glom Filt Rate - Afr Amer 55 mL/min (>60); Estimated Creatinine Clearance 49.14 ml/min; Glucose 133 mg/dL (74-106); Potassium 4.3 mmol/L (3.5-5.1); Sodium Level 144 mmol/L (136-145)
[2018-10-04] MEDS: Senna/Docusate Sodium 1 Tablet 2 TABLET PO ×2 (05:34→16:44)
[2018-10-04] MEDS: dilTIAZem CD 180 MG Capsule PO ×2 (05:34→16:44)
[2018-10-04] MEDS: Pantoprazole Sodium 40 MG Tablet PO (05:34)
[2018-10-04 05:37] VITALS: BP 118/56; PULSE 61
[2018-10-04] MEDS: Metoprolol(XL)Succ 100 MG Tablet PO ×2 (05:37→16:45)
[2018-10-04] MEDS: Citalopram 10 MG Tablet PO (05:38)
[2018-10-04 06:00] VITALS: PULSE 71; RESP 16; O2SAT 98
[2018-10-04 06:28] LABS: Anisocytosis 2+; Macrocytosis 1+
[2018-10-04 06:29] LABS: Platelet Estimate MOD DEC (ADEQ)
[2018-10-04 06:35] LABS: Bedside Glucose 123 mg/dL (70-110)
[2018-10-04] MEDS: Multivitamins,Ther W-Minerals Tablet 1 TABLET PO ×2 (07:47→16:44)
[2018-10-04] MEDS: Allopurinol 100 MG Tablet PO (07:47)
[2018-10-04] MEDS: Iron Polysaccharide Complex 150 MG CAPSULE PO ×2 (07:47→16:44)
[2018-10-04] MEDS: Aspirin E.C. 81 MG Tablet PO (07:47)
[2018-10-04] MEDS: Glimepiride 1 MG Tablet PO (07:47)
[2018-10-04] MEDS: 0.9% Normal Saline 1,000 ML 60 ML IV (08:08)
[2018-10-04 14:24] VITALS: BP 137/50; PULSE 66; RESP 20; TEMP 36.4; O2SAT 99
[2018-10-04] MEDS: Tamsulosin HCl 0.4 MG Capsule PO (16:44)
[2018-10-04 16:45] VITALS: BP 137/50; PULSE 66
[2018-10-04] MEDS: Atorvastatin Calcium 20 MG Tablet PO (21:33)
[2018-10-05] MEDS: Acetaminophen 500 MG Tablet 1000 MG PO (03:33)
[2018-10-05] MEDS: Nystatin Powder 15gm Bottle 1 APPLIC TOPICAL ×3 (03:35→20:39)
[2018-10-05] MEDS: Menthol/Lanolin/Calamine/Znox 113 GM Tube 1 APPLIC TOPICAL ×2 (03:35→20:39)
[2018-10-05] MEDS: Polyethylene Glycol 3350 17 GM PACKET PO (03:36)
[2018-10-05] MEDS: Senna/Docusate Sodium 1 Tablet 2 TABLET PO ×2 (03:38→17:23)
[2018-10-05] MEDS: dilTIAZem CD 180 MG Capsule PO ×2 (03:38→17:22)
[2018-10-05] MEDS: Citalopram 10 MG Tablet PO (03:38)
[2018-10-05] MEDS: Doxazosin 4 MG Tablet PO (03:38)
[2018-10-05] MEDS: LINAGLIPTIN 5 MG TABLET PO (03:40)
[2018-10-05] MEDS: Pantoprazole Sodium 40 MG Tablet PO (03:40)
[2018-10-05] MEDS: Pyridoxine HCl 100 MG Tablet PO (03:40)
[2018-10-05 05:48] VITALS: BP 118/58; PULSE 76
[2018-10-05] MEDS: Furosemide 40 MG Tablet PO (05:48)
[2018-10-05] MEDS: Metoprolol(XL)Succ 100 MG Tablet PO ×2 (05:48→17:23)
--- NOTE | 2018-10-05 05:57 | NURSING ---
Hill removed this am per order. Patient tolerated procedure well. Enc to drink fluids. Will cont to monitor.
[2018-10-05 06:00] VITALS: PULSE 76; RESP 18; O2SAT 97
[2018-10-05 06:31] LABS: Bedside Glucose 148 mg/dL (70-110)
[2018-10-05] MEDS: Multivitamins,Ther W-Minerals Tablet 1 TABLET PO ×2 (08:26→17:25)
[2018-10-05] MEDS: Aspirin E.C. 81 MG Tablet PO (08:26)
[2018-10-05] MEDS: Iron Polysaccharide Complex 150 MG CAPSULE PO ×2 (08:26→17:22)
[2018-10-05] MEDS: Allopurinol 100 MG Tablet PO (08:26)
[2018-10-05] MEDS: Glimepiride 1 MG Tablet PO (08:26)
[2018-10-05] MEDS: 0.9% NaCl PICC Flush IV ×2 (10:53→20:45)
--- NOTE | 2018-10-05 11:39 | NURSING ---
PT HAD LARGE INCONTINENT VOID. WITH 68 POST BLADDER SCAN. REPORTED TO GURU TINOCO
[2018-10-05 15:37] VITALS: BP 111/53; PULSE 64; RESP 16; TEMP 36.6; O2SAT 96
[2018-10-05 17:23] VITALS: BP 111/53; PULSE 64
[2018-10-05] MEDS: Tamsulosin HCl 0.4 MG Capsule PO (17:25)
[2018-10-05] MEDS: Atorvastatin Calcium 20 MG Tablet PO (20:40)
[2018-10-06 05:39] VITALS: BP 121/55; PULSE 86
[2018-10-06] MEDS: Pantoprazole Sodium 40 MG Tablet PO (05:39)
[2018-10-06] MEDS: dilTIAZem CD 180 MG Capsule PO ×2 (05:39→17:45)
[2018-10-06] MEDS: Metoprolol(XL)Succ 100 MG Tablet PO ×2 (05:39→17:45)
[2018-10-06] MEDS: Pyridoxine HCl 100 MG Tablet PO (05:39)
[2018-10-06] MEDS: Furosemide 40 MG Tablet PO (05:40)
[2018-10-06] MEDS: Doxazosin 4 MG Tablet PO (05:40)
[2018-10-06] MEDS: Citalopram 10 MG Tablet PO (05:40)
[2018-10-06] MEDS: Senna/Docusate Sodium 1 Tablet 2 TABLET PO ×2 (05:40→17:45)
[2018-10-06] MEDS: Nystatin Powder 15gm Bottle 1 APPLIC TOPICAL ×3 (05:46→21:19)
[2018-10-06] MEDS: Menthol/Lanolin/Calamine/Znox 113 GM Tube 1 APPLIC TOPICAL ×2 (05:46→21:19)
[2018-10-06] MEDS: Polyethylene Glycol 3350 17 GM PACKET PO (05:47)
[2018-10-06] MEDS: LINAGLIPTIN 5 MG TABLET PO (05:48)
[2018-10-06] MEDS: 0.9% NaCl PICC Flush IV (06:45)
[2018-10-06 06:51] LABS: Bedside Glucose 147 mg/dL (70-110)
[2018-10-06] MEDS: Allopurinol 100 MG Tablet PO (07:46)
[2018-10-06] MEDS: Aspirin E.C. 81 MG Tablet PO (07:46)
[2018-10-06] MEDS: Iron Polysaccharide Complex 150 MG CAPSULE PO ×2 (07:46→17:46)
[2018-10-06] MEDS: Glimepiride 1 MG Tablet PO (07:46)
[2018-10-06] MEDS: Multivitamins,Ther W-Minerals Tablet 1 TABLET PO ×2 (07:46→17:46)
[2018-10-06 09:15] LABS: Hematocrit 22.6 % (40-54); Hemoglobin 7.2 g/dl (13.0-16.5)
[2018-10-06 10:08] VITALS: PULSE 87; RESP 18; O2SAT 98
--- NOTE | 2018-10-06 10:25 | NURSING ---
Addendum entered by Sophie Xie 10/06/18 12:22: pt has been bumping knee on wood arm rest on recliner chair. so pillows placed between pt and chair. Original Note: Pt noted to have small bruises to right knee. Pillow placed between pt knee and recliner chair to protect. Sophie GARVEY made aware.
[2018-10-06 15:45] VITALS: BP 107/96; PULSE 66; RESP 18; TEMP 36.3; O2SAT 100
[2018-10-06 17:45] VITALS: BP 107/96; PULSE 66
[2018-10-06] MEDS: Tamsulosin HCl 0.4 MG Capsule PO (17:45)
[2018-10-06] MEDS: Atorvastatin Calcium 20 MG Tablet PO (21:20)
--- NOTE | 2018-10-06 21:25 | NURSING ---
Pt incont of urine x 2, changed and repositioned for comfort after taking hs meds. Bladder scanned three times, zero ml. Continuing to monitor.
[2018-10-07] MEDS: Menthol/Lanolin/Calamine/Znox 113 GM Tube 1 APPLIC TOPICAL ×2 (05:00→20:19)
[2018-10-07] MEDS: Pantoprazole Sodium 40 MG Tablet PO (05:00)
[2018-10-07] MEDS: Nystatin Powder 15gm Bottle 1 APPLIC TOPICAL ×3 (05:00→20:19)
[2018-10-07] MEDS: Citalopram 10 MG Tablet PO (05:01)
[2018-10-07] MEDS: Senna/Docusate Sodium 1 Tablet 2 TABLET PO ×2 (05:01→17:03)
[2018-10-07] MEDS: Furosemide 40 MG Tablet PO (05:01)
[2018-10-07 05:02] VITALS: BP 142/87; PULSE 88
[2018-10-07] MEDS: Polyethylene Glycol 3350 17 GM PACKET PO (05:02)
[2018-10-07] MEDS: LINAGLIPTIN 5 MG TABLET PO (05:02)
[2018-10-07] MEDS: Pyridoxine HCl 100 MG Tablet PO (05:02)
[2018-10-07] MEDS: Metoprolol(XL)Succ 100 MG Tablet PO ×2 (05:02→17:03)
[2018-10-07] MEDS: Doxazosin 4 MG Tablet PO (05:02)
[2018-10-07] MEDS: dilTIAZem CD 180 MG Capsule PO ×2 (05:03→17:03)
[2018-10-07 06:56] LABS: Bedside Glucose 117 mg/dL (70-110)
[2018-10-07] MEDS: Multivitamins,Ther W-Minerals Tablet 1 TABLET PO ×2 (08:00→17:03)
[2018-10-07] MEDS: Glimepiride 1 MG Tablet PO (08:00)
[2018-10-07] MEDS: Aspirin E.C. 81 MG Tablet PO (08:00)
[2018-10-07] MEDS: Allopurinol 100 MG Tablet PO (08:00)
[2018-10-07] MEDS: Iron Polysaccharide Complex 150 MG CAPSULE PO ×2 (08:00→17:04)
[2018-10-07 15:35] VITALS: BP 129/60; PULSE 65; RESP 16; TEMP 36.6; O2SAT 99
[2018-10-07 17:03] VITALS: BP 129/60; PULSE 65
[2018-10-07] MEDS: Tamsulosin HCl 0.4 MG Capsule PO (17:03)
[2018-10-07 20:00] VITALS: PULSE 88; RESP 18; O2SAT 97
[2018-10-07] MEDS: 0.9% NaCl PICC Flush IV (20:11)
[2018-10-07] MEDS: Atorvastatin Calcium 20 MG Tablet PO (20:21)
[2018-10-08] MEDS: 0.9% NaCl PICC Flush IV (04:49)
[2018-10-08 05:05] LABS: Hematocrit 21.6 % (40-54)
[2018-10-08] MEDS: Menthol/Lanolin/Calamine/Znox 113 GM Tube 1 APPLIC TOPICAL ×2 (05:08→20:44)
[2018-10-08] MEDS: Nystatin Powder 15gm Bottle 1 APPLIC TOPICAL ×3 (05:09→20:44)
[2018-10-08] MEDS: Polyethylene Glycol 3350 17 GM PACKET PO (05:10)
[2018-10-08 05:11] VITALS: BP 131/61; PULSE 82
[2018-10-08] MEDS: Metoprolol(XL)Succ 100 MG Tablet PO ×2 (05:11→17:20)
[2018-10-08] MEDS: Pantoprazole Sodium 40 MG Tablet PO (05:12)
[2018-10-08] MEDS: LINAGLIPTIN 5 MG TABLET PO (05:12)
[2018-10-08] MEDS: dilTIAZem CD 180 MG Capsule PO ×2 (05:12→17:19)
[2018-10-08] MEDS: Furosemide 40 MG Tablet PO (05:12)
[2018-10-08] MEDS: Pyridoxine HCl 100 MG Tablet PO (05:12)
[2018-10-08] MEDS: Doxazosin 4 MG Tablet PO (05:12)
[2018-10-08] MEDS: Senna/Docusate Sodium 1 Tablet 2 TABLET PO ×2 (05:12→17:20)
[2018-10-08] MEDS: Citalopram 10 MG Tablet PO (05:12)
[2018-10-08 06:46] LABS: Bedside Glucose 127 mg/dL (70-110)
[2018-10-08] MEDS: Aspirin E.C. 81 MG Tablet PO (08:14)
[2018-10-08] MEDS: Glimepiride 1 MG Tablet PO (08:14)
[2018-10-08] MEDS: Iron Polysaccharide Complex 150 MG CAPSULE PO ×2 (08:14→17:18)
[2018-10-08] MEDS: Multivitamins,Ther W-Minerals Tablet 1 TABLET PO ×2 (08:15→17:19)
[2018-10-08] MEDS: Allopurinol 100 MG Tablet PO (08:15)
[2018-10-08 08:18] VITALS: BP 124/70; PULSE 70; RESP 16; TEMP 37.1; O2SAT 98
[2018-10-08 10:00] VITALS: PULSE 80; RESP 18
[2018-10-08 15:46] VITALS: BP 115/51; PULSE 72; RESP 18; TEMP 36.6; O2SAT 98
[2018-10-08] MEDS: Tamsulosin HCl 0.4 MG Capsule PO (17:18)
[2018-10-08 17:20] VITALS: BP 115/51; PULSE 72
[2018-10-08] MEDS: Atorvastatin Calcium 20 MG Tablet PO (20:45)
[2018-10-09] MEDS: 0.9% NaCl PICC Flush IV (04:45)
[2018-10-09] MEDS: Menthol/Lanolin/Calamine/Znox 113 GM Tube 1 APPLIC TOPICAL ×2 (05:07→20:06)
[2018-10-09 05:10] VITALS: BP 114/58; PULSE 77
[2018-10-09] MEDS: dilTIAZem CD 180 MG Capsule PO ×2 (05:10→17:20)
[2018-10-09] MEDS: Pyridoxine HCl 100 MG Tablet PO (05:10)
[2018-10-09] MEDS: Citalopram 10 MG Tablet PO (05:10)
[2018-10-09] MEDS: Metoprolol(XL)Succ 100 MG Tablet PO ×2 (05:10→17:20)
[2018-10-09] MEDS: Furosemide 40 MG Tablet PO (05:10)
[2018-10-09] MEDS: Polyethylene Glycol 3350 17 GM PACKET PO (05:10)
[2018-10-09] MEDS: Pantoprazole Sodium 40 MG Tablet PO (05:10)
[2018-10-09] MEDS: Doxazosin 4 MG Tablet PO (05:10)
[2018-10-09] MEDS: LINAGLIPTIN 5 MG TABLET PO (05:11)
[2018-10-09] MEDS: Senna/Docusate Sodium 1 Tablet 2 TABLET PO ×2 (05:11→17:19)
[2018-10-09] MEDS: Nystatin Powder 15gm Bottle 1 APPLIC TOPICAL ×3 (05:13→20:07)
[2018-10-09 06:30] LABS: Bedside Glucose 117 mg/dL (70-110)
[2018-10-09 06:45] VITALS: PULSE 77; RESP 16; O2SAT 99
[2018-10-09] MEDS: Aspirin E.C. 81 MG Tablet PO (08:11)
[2018-10-09] MEDS: Glimepiride 1 MG Tablet PO (08:11)
[2018-10-09] MEDS: Allopurinol 100 MG Tablet PO (08:12)
[2018-10-09] MEDS: Iron Polysaccharide Complex 150 MG CAPSULE PO ×2 (08:12→17:20)
[2018-10-09] MEDS: Multivitamins,Ther W-Minerals Tablet 1 TABLET PO ×2 (08:12→17:20)
[2018-10-09 15:05] VITALS: BP 117/54; PULSE 67; RESP 18; TEMP 36.5; O2SAT 99
[2018-10-09 17:20] VITALS: BP 117/54; PULSE 67
[2018-10-09] MEDS: Tamsulosin HCl 0.4 MG Capsule PO (17:20)
[2018-10-09] MEDS: Atorvastatin Calcium 20 MG Tablet PO (20:07)
[2018-10-10] MEDS: Menthol/Lanolin/Calamine/Znox 113 GM Tube 1 APPLIC TOPICAL ×2 (05:20→20:53)
[2018-10-10] MEDS: Doxazosin 4 MG Tablet PO (05:20)
[2018-10-10] MEDS: dilTIAZem CD 180 MG Capsule PO ×2 (05:20→17:47)
[2018-10-10] MEDS: Citalopram 10 MG Tablet PO (05:21)
[2018-10-10] MEDS: Furosemide 40 MG Tablet PO (05:21)
[2018-10-10] MEDS: Nystatin Powder 15gm Bottle 1 APPLIC TOPICAL ×3 (05:21→20:53)
[2018-10-10] MEDS: Polyethylene Glycol 3350 17 GM PACKET PO (05:21)
[2018-10-10] MEDS: Pantoprazole Sodium 40 MG Tablet PO (05:22)
[2018-10-10] MEDS: Senna/Docusate Sodium 1 Tablet 2 TABLET PO ×2 (05:22→17:39)
[2018-10-10 05:23] VITALS: BP 142/81; PULSE 71
[2018-10-10] MEDS: Metoprolol(XL)Succ 100 MG Tablet PO ×2 (05:23→17:47)
[2018-10-10] MEDS: Pyridoxine HCl 100 MG Tablet PO (05:23)
[2018-10-10] MEDS: LINAGLIPTIN 5 MG TABLET PO (05:23)
[2018-10-10 06:36] LABS: Bedside Glucose 123 mg/dL (70-110)
[2018-10-10] MEDS: Allopurinol 100 MG Tablet PO (07:50)
[2018-10-10] MEDS: Aspirin E.C. 81 MG Tablet PO (07:50)
[2018-10-10] MEDS: Glimepiride 1 MG Tablet PO (07:50)
[2018-10-10] MEDS: Multivitamins,Ther W-Minerals Tablet 1 TABLET PO ×2 (07:50→17:39)
[2018-10-10] MEDS: Iron Polysaccharide Complex 150 MG CAPSULE PO ×2 (07:50→17:39)
[2018-10-10 08:05] LABS: Hematocrit 24.1 % (40-54); Hemoglobin 7.4 g/dl (13.0-16.5)
[2018-10-10] MEDS: 0.9% NaCl PICC Flush IV ×2 (11:40→20:58)
--- NOTE | 2018-10-10 13:17 | NURSING ---
Pt very tearful. asked pt what was wrong. PT stated this is going to be the first year abi not with my on day. talked to pt 1 on 1 a while and asked if he needed anything. Pt replied no and thanked me. reported to juanita phillips
[2018-10-10 15:34] VITALS: BP 102/55; PULSE 68; RESP 18; TEMP 36.8; O2SAT 95
[2018-10-10] MEDS: Tamsulosin HCl 0.4 MG Capsule PO (17:39)
[2018-10-10 17:47] VITALS: BP 119/57; PULSE 89
[2018-10-10 17:51] VITALS: BP 119/57; PULSE 89
[2018-10-10] MEDS: Atorvastatin Calcium 20 MG Tablet PO (20:55)
[2018-10-10 22:40] VITALS: PULSE 72; RESP 16; O2SAT 95
[2018-10-11] MEDS: Polyethylene Glycol 3350 17 GM PACKET PO (05:53)
[2018-10-11 05:56] LABS: Anion Gap 6 (5-15); BUN 77 mg/dL (7-18); BUN/Creat Ratio 46.4 RATIO (10-20); Calcium,Total 8.6 mg/dL (8.5-10.1); Chloride 110 mmol/L (98-107); Creatinine, Serum 1.66 mg/dL (0.70-1.30); EST Glomerular Filtration Rate 43 mL/min (>60); Est Glom Filt Rate - Afr Amer 52 mL/min (>60); Estimated Creatinine Clearance 47.37 ml/min; Glucose 141 mg/dL (74-106); Potassium 4.8 mmol/L (3.5-5.1); Sodium Level 143 mmol/L (136-145)
[2018-10-11] MEDS: Nystatin Powder 15gm Bottle 1 APPLIC TOPICAL ×3 (05:56→21:09)
[2018-10-11] MEDS: Menthol/Lanolin/Calamine/Znox 113 GM Tube 1 APPLIC TOPICAL ×2 (05:56→21:10)
[2018-10-11 05:57] VITALS: BP 131/56; PULSE 85
[2018-10-11] MEDS: LINAGLIPTIN 5 MG TABLET PO (05:57)
[2018-10-11] MEDS: Furosemide 40 MG Tablet PO (05:57)
[2018-10-11] MEDS: Citalopram 10 MG Tablet PO (05:57)
[2018-10-11] MEDS: Senna/Docusate Sodium 1 Tablet 2 TABLET PO ×2 (05:57→17:20)
[2018-10-11] MEDS: Pyridoxine HCl 100 MG Tablet PO (05:57)
[2018-10-11] MEDS: Metoprolol(XL)Succ 100 MG Tablet PO ×2 (05:57→17:20)
[2018-10-11] MEDS: Pantoprazole Sodium 40 MG Tablet PO (05:57)
[2018-10-11] MEDS: dilTIAZem CD 180 MG Capsule PO ×2 (05:58→17:20)
[2018-10-11] MEDS: 0.9% NaCl PICC Flush IV ×3 (06:00→21:10)
[2018-10-11] MEDS: Doxazosin 4 MG Tablet PO (06:00)
[2018-10-11 06:14] LABS: Absolute Lymphocyte Count 0.65 X10^3/ul (0.83-4.51); Absolute Neutrophil Count 6.9 X10^3/uL (2.0-7.7); Basophil# 0.01 X10^3/uL; Basophil% 0.1 % (0-1); Eosinophil# 0.27 X10^3/uL; Eosinophils% 3.2 % (0-5); Hematocrit 22.2 % (40-54); Hemoglobin 6.9 g/dl (13.0-16.5); Lymphocyte # 0.65 X10^3/ul (4.0); Lymphocyte % 7.7 % (19-41); Mean Corp Hgb Conc 31.1 g/gl (32-36); Mean Corpuscular Hgb 31.7 pg (27.0-32.0); Mean Corpuscular Volume 101.8 fL (80-94); Mean Platelet Vol. 9.3 fl (6.2-12.0); Monocyte# 0.63 X10^3/uL; Monocyte% 7.5 % (0-10); Neutrophil # 6.86 X10^3/uL (2.7-7.7); Neutrophil % 81.3 % (47-70); Platelet Count 70 K/mm3 (150-450); RBC Distribution Width CV 19.9 % (11.6-14.6); RBC Distribution Width SD 68.8 fl (35.1-43.9); Red Blood Count 2.18 M/mm3 (4.6-6.2); White Blood Count 8.4 K/mm3 (4.4-11.0)
[2018-10-11 06:15] LABS: Differential Indicated SCAN CRITERIA MET; POSITIVE COUNT NO; POSITIVE DIFFERENTIAL NO; POSITIVE MORPHOLOGY YES
[2018-10-11 06:40] LABS: Bedside Glucose 150 mg/dL (70-110)
[2018-10-11 06:41] LABS: Differential Comment SCAN; Platelet Estimate MOD DEC (ADEQ)
[2018-10-11 06:42] LABS: Anisocytosis 2+; Hypochromasia 2+; Microcytosis 1+; Polychromasia RARE
[2018-10-11] MEDS: Glimepiride 1 MG Tablet PO (08:03)
[2018-10-11] MEDS: Iron Polysaccharide Complex 150 MG CAPSULE PO ×2 (08:03→17:20)
[2018-10-11] MEDS: Aspirin E.C. 81 MG Tablet PO (08:03)
[2018-10-11] MEDS: Allopurinol 100 MG Tablet PO (08:03)
[2018-10-11] MEDS: Multivitamins,Ther W-Minerals Tablet 1 TABLET PO ×2 (08:03→17:20)
[2018-10-11 10:30] VITALS: PULSE 69; RESP 18; O2SAT 98
[2018-10-11 15:25] VITALS: BP 118/58; PULSE 80; RESP 16; TEMP 36.8; O2SAT 95
[2018-10-11 17:20] VITALS: BP 118/58; PULSE 80
[2018-10-11] MEDS: Tamsulosin HCl 0.4 MG Capsule PO (17:20)
[2018-10-11] MEDS: Atorvastatin Calcium 20 MG Tablet PO (21:06)
[2018-10-12] MEDS: 0.9% NaCl PICC Flush IV ×3 (05:47→19:52)
[2018-10-12 05:52] VITALS: BP 113/58; PULSE 80
[2018-10-12] MEDS: Doxazosin 4 MG Tablet PO (05:52)
[2018-10-12] MEDS: Polyethylene Glycol 3350 17 GM PACKET PO (05:52)
[2018-10-12] MEDS: Pyridoxine HCl 100 MG Tablet PO (05:52)
[2018-10-12] MEDS: Metoprolol(XL)Succ 100 MG Tablet PO ×2 (05:52→18:11)
[2018-10-12] MEDS: Citalopram 10 MG Tablet PO (05:53)
[2018-10-12] MEDS: dilTIAZem CD 180 MG Capsule PO ×2 (05:53→18:08)
[2018-10-12] MEDS: LINAGLIPTIN 5 MG TABLET PO (05:53)
[2018-10-12] MEDS: Furosemide 40 MG Tablet PO (05:53)
[2018-10-12] MEDS: Senna/Docusate Sodium 1 Tablet 2 TABLET PO ×2 (05:53→18:10)
[2018-10-12] MEDS: Pantoprazole Sodium 40 MG Tablet PO (05:58)
[2018-10-12] MEDS: Menthol/Lanolin/Calamine/Znox 113 GM Tube 1 APPLIC TOPICAL ×2 (05:59→19:49)
[2018-10-12] MEDS: Nystatin Powder 15gm Bottle 1 APPLIC TOPICAL ×3 (05:59→19:49)
[2018-10-12 06:51] LABS: Bedside Glucose 110 mg/dL (70-110)
[2018-10-12] MEDS: Multivitamins,Ther W-Minerals Tablet 1 TABLET PO ×2 (08:25→18:06)
[2018-10-12] MEDS: Aspirin E.C. 81 MG Tablet PO (08:26)
[2018-10-12] MEDS: Glimepiride 1 MG Tablet PO (08:26)
[2018-10-12] MEDS: Iron Polysaccharide Complex 150 MG CAPSULE PO ×2 (08:26→18:07)
[2018-10-12] MEDS: Allopurinol 100 MG Tablet PO (08:27)
[2018-10-12 10:00] VITALS: PULSE 67; RESP 18; O2SAT 97
--- NOTE | 2018-10-12 10:28 | NURSING ---
wound photo: right buttock
--- NOTE | 2018-10-12 10:43 | NURSING ---
Addendum entered by Claritza Gallagher 10/12/18 12:58: Orders from Dr ni that it is ok to transfuse resident tomorrow 10/13/18 at 7:45 AM in the infusion center. Orders faxed to them. Original Note: Addendum entered by Claritza Gallagher 10/12/18 12:41: Celine nurse from Dr Gracia office calls back. Made aware he is not receiving Arnesp while resident here. They state they transfuse 2 units PRBCS for any hgb under 8.0. Dr Ni aware and orders received for resident to be transfused. Original Note: H&H lab results faxed to [facility] at #[phone]. Awaiting for call back for any new orders.
--- NOTE | 2018-10-12 12:35 | NURSING ---
Taken to radiology for U/S of kidney and bladder.
--- NOTE | 2018-10-12 13:29 | NURSING ---
Blood drawn from PICC line for type and screen. Sent to blood bank.
[2018-10-12 14:09] VITALS: BP 134/56; PULSE 80; RESP 18; TEMP 37.1; O2SAT 99
[2018-10-12] MEDS: Tamsulosin HCl 0.4 MG Capsule PO (18:03)
[2018-10-12 18:11] VITALS: BP 126/66; PULSE 100
[2018-10-12] MEDS: Atorvastatin Calcium 20 MG Tablet PO (19:49)
--- NOTE | 2018-10-12 20:59 | PCM.TCUNOT ---
Subjective: Resident seen in room, sitting in recliner, he has no complaints. We discussed his anemia, his boat carpenter recommend 2 units PRBC transfusion, will transfuse in AM at infusion center. Vitals/I&O's: Vital Signs Temp Pulse Resp BP Pulse Ox 98.7 F 100 18 126/66 H 99 10/12/18 14:09 10/12/18 18:11 10/12/18 14:09 10/12/18 18:11 10/12/18 14:09 Oxygen Delivery Method Room Air Weight: 129.002 kg Body Mass Index (BMI) 35.9 Intake and Output for Last 24 Hours 10/10/18 10/11/18 10/12/18 23:59 23:59 23:59 Intake Total 0 / 1680 2039 Balance 168 / 0 2039 Laboratory Results 10/12/18 06:42: POC Glucose 110 10/12/18 13:21: Blood Type O POSITIVE, Antibody Screen NEGATIVE, Crossmatch See Detail Past Medical History Past Medical History (Chronic Problems): Chronic Problems Atrial fibrillation (Chronic) Diabetes mellitus (Chronic) Hypertension (Chronic) Osteoarthritis (Chronic) Gout (Chronic) Hyperlipidemia (Chronic) Lumbar spinal stenosis (Chronic) Myelodysplasia (myelodysplastic syndrome) (Chronic) Obstructive sleep apnea (Chronic) Cholelithiases (Chronic) Choledocholithiasis (Chronic) Allergies Penicillins Allergy (Verified 09/19/18 14:28) Swelling Home Medications: Ambulatory Orders Medication Instructions Recorded Allopurinol 100 mg PO DAILY 09/19/18 Ascorbic Acid [Vitamin C] 250 mg PO BID 09/19/18 Aspirin [Aspirin EC] 81 mg PO DAILY 09/19/18 Atorvastatin Calcium [Lipitor] 20 mg PO QHS 09/19/18 Bisacodyl 10 mg RC DAILY 09/19/18 Cholecalciferol (VIT D3) [Vitamin 1,000 unit PO DAILY 09/19/18 D] Cyanocobalamin (Vitamin B-12) 1,000 mcg IJ MO 09/19/18 [Cyanocobalamin Injection] Cyclobenzaprine [Flexeril] 10 mg PO TID PRN PRN 09/19/18 Darbepoetin Osmar in Polysorbat 250 mcg IJ QWEEK 09/19/18 [Aranesp] Diazepam [Valium] 5 mg PO TID PRN PRN 09/19/18 Diltiazem HCl [Diltiazem 24Hr ER] 180 mg PO BID 09/19/18 Doxazosin Mesylate [Cardura] 4 mg PO DAILY 09/19/18 Ergocalciferol [Vitamin D] 50,000 unit PO Q7D 09/19/18 Furosemide 60 mg PO DAILY 09/19/18 Glimepiride [Amaryl] 1 mg PO DAILY 09/19/18 Hydrochlorothiazide [Hctz] 25 mg PO DAILY 09/19/18 Iron Ps Complex/B12/Folic Acid 1 cap PO BID 09/19/18 [Ferrex 150 Forte Capsule] Metoprolol Succinate [Toprol Xl] 100 mg PO BID 09/19/18 Multivit,Calc,Mins/Folic Acid 1 tablet PO BID 09/19/18 [One-A-Day Proactive 65 Plus Tb] Nitroglycerin 0.4 mg SL Q10M PRN 09/19/18 Omeprazole 40 mg PO DAILY 09/19/18 Pantoprazole Sodium [Protonix] 20 mg PO DAILY 09/19/18 Potassium Chloride 20 meq PO QODAY 09/19/18 Potassium Chloride 30 meq PO QODAY 09/19/18 Pyridoxine HCl [Vitamin B-6] 100 mg PO DAILY 09/19/18 Sitagliptin Phosphate [Januvia] 50 mg PO DAILY 09/19/18 Triamcinolone 0.1% Cream [Kenalog] 1 applic TOPICAL BID 09/19/18 Zinc Sulfate (50mg elemental) 220 mg PO DAILY 09/19/18 [Zinc Sulfate] hydrALAZINE [Apresoline] 50 mg PO BID 09/19/18 Surgical History: herniorrhaphy, total knee arthroplasty - Left., - - Back surgery, cardiac cath, cholecystostomy, orchiectomy. Psychiatric History: No pertinent psych hx Lives: Spouse/ Significant Other Smoking Status: Former smoker Tobacco Use: Non-smoker Alcohol: None Drugs: None - *Family History Maternal History Items: Cancer - leukemia., Diabetes, Heart Disease, Hypertension Capacity - Capacity Assessment Tool Can the patient make a choice & communicate that choice?: Yes Can the patient understand benefits, risks and alternatives?: Yes Can the patient make a logical, rational choice?: Yes Is the choice the patient makes consistent w/ their values?: Yes Is there an impending, emergent risk to the patient?: No Does the patient have an Advance Directive?: No Is there a Surrogate Available?: No i.e. HCPOA: No i.e. close relative (spouse, child, parent, sibling)?: No Review of Systems Constitutional: Denies: Chills, Fever, Weight Change HEENT: Denies: Head Aches, Sinus Congestion, Sinus Drainage Cardiovascular: Denies: Chest Pain, Palpitations Respiratory: Denies: Cough, Shortness of breath at rest, Sputum production Gastrointestinal: Denies: Abdominal Pain, Nausea, Vomiting Genitourinary: Denies: Dysuria Musculoskeletal: Denies: Joint Pain, Joint Tenderness Skin: Denies: Rash, Wounds Neurological: Denies: Numbness, Tingling, Focal weakness Psychiatric: Denies: Anxiety, Depression, Homicidal Ideations, Suicidal Ideations Hematologic/ Lymphatic: Denies: Easy Bruising, Easy Bleeding Patient Problems: Active and Suspected Problems Acute left PRIVATE TUTOR stroke (Acute) Delirium (Acute) Retroperitoneal hemorrhage (Acute) VRE bacteremia (Acute) Acute blood loss anemia (Acute) Abnormal EKG (Acute) Coronary artery disease (Acute) - Physical Exam General: Alert, Oriented x3, Cooperative HEENT: Atraumatic, PERRLA, EOMI, Normocephalic Neck: Supple, No JVD, Negative Carotid Bruits Lungs: Clear to auscultation, Normal air movement Cardiovascular: Regular rate, No murmurs Abdomen: Bowel Sounds Present, Soft, Non Tender Extremities: No edema, Capillary Refill Less than 3 Seconds Skin: No rashes, No breakdown Musculoskeletal: No Tenderness to Palpation of Joints or Extremities Neurological: Cranial nerves II-XII grossly intact Psych/Mental Status: Normal Affect, Appropriate Vital Signs Temp Pulse Resp BP Pulse Ox 98.7 F 100 18 126/66 H 99 10/12/18 14:09 10/12/18 18:11 10/12/18 14:09 10/12/18 18:11 10/12/18 14:09 Oxygen Delivery Method Room Air Weight: 129.002 kg Body Mass Index (BMI) 35.9 Intake and Output for Last 24 Hours 10/10/18 10/11/18 10/12/18 23:59 23:59 23:59 Intake Total 0 / 0 2039 1859 Balance 1680 / 1680 2039 Laboratory Tests Past 24 Hrs 10/12/18 13:21 Blood Type O POSITIVE Antibody Screen NEGATIVE Crossmatch See Detail POC Glucose 10/12/18 06:42 POC Glucose 110 Assessment/Plan All Active Problems Acute left PRIVATE TUTOR stroke (Acute) Delirium (Acute) Retroperitoneal hemorrhage (Acute) VRE bacteremia (Acute) Acute blood loss anemia (Acute) Abnormal EKG (Acute) Coronary artery disease (Acute) 73 year old male with below past medical history hospitalized for left PRIVATE TUTOR stroke, complicated by delirium, retroperitoneal hemorrhage, VRE bacteremia, abnormal EKG, acute kidney injury, admitted to TCU with debility, here for rehabilitation, strengthening, prior to discharge home with spouse. Debility - PT/OT. Dysphagia - ST. Pain - Tylenol 1000MG Q6H PRN mild pain. Bowel - Miralax 17GM daily, Senna/colace 2 tablets BID. Pneumonia vaccination - Administer Prevnar 13 and/or Pneumovax 23 as necessary. DVT prophylaxis - Hold, contraindicated due to bleeding. Gout - Allopurinol 100MG daily. Atrial Fibrillation - Metoprolol succinate 100MG BID, Diltiazem 180MG BID, Aspirin 81MG daily, anticoagulation contraindicated. Hyperlipidemia - Atorvastatin 20MG QHS. Vitamin D deficiency - D3 1000IU daily. Vitamin B12 deficiency - B12 1000MCG every month. Anemia of chronic kidney disease - Unable to administer Aranesp, Hemoglobin 6.9, Hematocrit 22.2, discussed with Dr. Gracia, his boat carpenter, recommend 2 units PRBC transfusion tomorrow at [facility]. Muscle spasm - Flexeril 10MG TID PRN. BPH - Doxazosin 4MG daily, Tamsulosin 0.4MG daily. Diabetes Mellitus II - Glimepiride 1MG daily, Tradjenta 5MG daily. Edema - Lasix 40MG daily. Hypertension - Metoprolol succinate 100MG BID, Diltiazem 180MG BID. Iron deficiency anemia - Ferrex 150MG daily twice daily. Skin irritation - Calmoseptine BID bilateral buttocks, Eucerin twice daily. Tinea Corporis - Nystatin powder TID. Nutrition - MVI twice daily, Nelson 1 packet BID. Coronary Artery Disease - Metoprolol 100MG BID, Aspirin 81MG daily, NTG 0.4MG Q5M PRN. GERD - Pantoprazole 40MG daily. Hypokalemia - 40MEQ twice daily. Vitamin B-6 deficiency - B-6 100MG daily. Zinc deficiency - Zinc 220MG daily. Depression - Citalopram 10MG daily. Allergic Rhinitis - [place] Nasal spray 2 sprays TID PRN.
--- NOTE | 2018-10-12 21:04 | PN_ITS ---
Subjective: Resident seen in room, sitting in recliner, he has no complaints. We discussed his anemia, his electrical discharge machine operator recommend 2 units PRBC transfusion, will transfuse in AM at infusion center. Vitals/I&O's: Vital Signs Temp Pulse Resp BP Pulse Ox 98.7 F 100 18 126/66 H 99 10/12/18 14:09 10/12/18 18:11 10/12/18 14:09 10/12/18 18:11 10/12/18 14:09 Oxygen Delivery Method Room Air Weight: 129.002 kg Body Mass Index (BMI) 35.9 Intake and Output for Last 24 Hours 10/10/18 10/11/18 10/12/18 23:59 23:59 23:59 Intake Total 0 / 1680 2039 Balance 168 / 0 2039 Laboratory Results 10/12/18 06:42: POC Glucose 110 10/12/18 13:21: Blood Type O POSITIVE, Antibody Screen NEGATIVE, Crossmatch See Detail Past Medical History Past Medical History (Chronic Problems): Chronic Problems Atrial fibrillation (Chronic) Diabetes mellitus (Chronic) Hypertension (Chronic) Osteoarthritis (Chronic) Gout (Chronic) Hyperlipidemia (Chronic) Lumbar spinal stenosis (Chronic) Myelodysplasia (myelodysplastic syndrome) (Chronic) Obstructive sleep apnea (Chronic) Cholelithiases (Chronic) Choledocholithiasis (Chronic) Allergies Penicillins Allergy (Verified 09/19/18 14:28) Swelling Home Medications: Ambulatory Orders Medication Instructions Recorded Allopurinol 100 mg PO DAILY 09/19/18 Ascorbic Acid [Vitamin C] 250 mg PO BID 09/19/18 Aspirin [Aspirin EC] 81 mg PO DAILY 09/19/18 Atorvastatin Calcium [Lipitor] 20 mg PO QHS 09/19/18 Bisacodyl 10 mg RC DAILY 09/19/18 Cholecalciferol (VIT D3) [Vitamin 1,000 unit PO DAILY 09/19/18 D] Cyanocobalamin (Vitamin B-12) 1,000 mcg IJ MO 09/19/18 [Cyanocobalamin Injection] Cyclobenzaprine [Flexeril] 10 mg PO TID PRN PRN 09/19/18 Darbepoetin Osmar in Polysorbat 250 mcg IJ QWEEK 09/19/18 [Aranesp] Diazepam [Valium] 5 mg PO TID PRN PRN 09/19/18 Diltiazem HCl [Diltiazem 24Hr ER] 180 mg PO BID 09/19/18 Doxazosin Mesylate [Cardura] 4 mg PO DAILY 09/19/18 Ergocalciferol [Vitamin D] 50,000 unit PO Q7D 09/19/18 Furosemide 60 mg PO DAILY 09/19/18 Glimepiride [Amaryl] 1 mg PO DAILY 09/19/18 Hydrochlorothiazide [Hctz] 25 mg PO DAILY 09/19/18 Iron Ps Complex/B12/Folic Acid 1 cap PO BID 09/19/18 [Ferrex 150 Forte Capsule] Metoprolol Succinate [Toprol Xl] 100 mg PO BID 09/19/18 Multivit,Calc,Mins/Folic Acid 1 tablet PO BID 09/19/18 [One-A-Day Proactive 65 Plus Tb] Nitroglycerin 0.4 mg SL Q10M PRN 09/19/18 Omeprazole 40 mg PO DAILY 09/19/18 Pantoprazole Sodium [Protonix] 20 mg PO DAILY 09/19/18 Potassium Chloride 20 meq PO QODAY 09/19/18 Potassium Chloride 30 meq PO QODAY 09/19/18 Pyridoxine HCl [Vitamin B-6] 100 mg PO DAILY 09/19/18 Sitagliptin Phosphate [Januvia] 50 mg PO DAILY 09/19/18 Triamcinolone 0.1% Cream [Kenalog] 1 applic TOPICAL BID 09/19/18 Zinc Sulfate (50mg elemental) 220 mg PO DAILY 09/19/18 [Zinc Sulfate] hydrALAZINE [Apresoline] 50 mg PO BID 09/19/18 Surgical History: herniorrhaphy, total knee arthroplasty - Left., - - Back surgery, cardiac cath, cholecystostomy, orchiectomy. Psychiatric History: No pertinent psych hx Lives: Spouse/ Significant Other Smoking Status: Former smoker Tobacco Use: Non-smoker Alcohol: None Drugs: None - *Family History Maternal History Items: Cancer - leukemia., Diabetes, Heart Disease, Hypertension Capacity - Capacity Assessment Tool Can the patient make a choice & communicate that choice?: Yes Can the patient understand benefits, risks and alternatives?: Yes Can the patient make a logical, rational choice?: Yes Is the choice the patient makes consistent w/ their values?: Yes Is there an impending, emergent risk to the patient?: No Does the patient have an Advance Directive?: No Is there a Surrogate Available?: No i.e. HCPOA: No i.e. close relative (spouse, child, parent, sibling)?: No Review of Systems Constitutional: Denies: Chills, Fever, Weight Change HEENT: Denies: Head Aches, Sinus Congestion, Sinus Drainage Cardiovascular: Denies: Chest Pain, Palpitations Respiratory: Denies: Cough, Shortness of breath at rest, Sputum production Gastrointestinal: Denies: Abdominal Pain, Nausea, Vomiting Genitourinary: Denies: Dysuria Musculoskeletal: Denies: Joint Pain, Joint Tenderness Skin: Denies: Rash, Wounds Neurological: Denies: Numbness, Tingling, Focal weakness Psychiatric: Denies: Anxiety, Depression, Homicidal Ideations, Suicidal Ideations Hematologic/ Lymphatic: Denies: Easy Bruising, Easy Bleeding Patient Problems: Active and Suspected Problems Acute left TROUBLE SHOOTER stroke (Acute) Delirium (Acute) Retroperitoneal hemorrhage (Acute) VRE bacteremia (Acute) Acute blood loss anemia (Acute) Abnormal EKG (Acute) Coronary artery disease (Acute) - Physical Exam General: Alert, Oriented x3, Cooperative HEENT: Atraumatic, PERRLA, EOMI, Normocephalic Neck: Supple, No JVD, Negative Carotid Bruits Lungs: Clear to auscultation, Normal air movement Cardiovascular: Regular rate, No murmurs Abdomen: Bowel Sounds Present, Soft, Non Tender Extremities: No edema, Capillary Refill Less than 3 Seconds Skin: No rashes, No breakdown Musculoskeletal: No Tenderness to Palpation of Joints or Extremities Neurological: Cranial nerves II-XII grossly intact Psych/Mental Status: Normal Affect, Appropriate Vital Signs Temp Pulse Resp BP Pulse Ox 98.7 F 100 18 126/66 H 99 10/12/18 14:09 10/12/18 18:11 10/12/18 14:09 10/12/18 18:11 10/12/18 14:09 Oxygen Delivery Method Room Air Weight: 129.002 kg Body Mass Index (BMI) 35.9 Intake and Output for Last 24 Hours 10/10/18 10/11/18 10/12/18 23:59 23:59 23:59 Intake Total 0 / 0 2039 1859 Balance 1680 / 1680 2039 Laboratory Tests Past 24 Hrs 10/12/18 13:21 Blood Type O POSITIVE Antibody Screen NEGATIVE Crossmatch See Detail POC Glucose 10/12/18 06:42 POC Glucose 110 Assessment/Plan All Active Problems Acute left TROUBLE SHOOTER stroke (Acute) Delirium (Acute) Retroperitoneal hemorrhage (Acute) VRE bacteremia (Acute) Acute blood loss anemia (Acute) Abnormal EKG (Acute) Coronary artery disease (Acute) 73 year old male with below past medical history hospitalized for left TROUBLE SHOOTER stroke, complicated by delirium, retroperitoneal hemorrhage, VRE bacteremia, abnormal EKG, acute kidney injury, admitted to TCU with debility, here for rehabilitation, strengthening, prior to discharge home with spouse. * Debility - PT/OT. * Dysphagia - ST. * Pain - Tylenol 1000MG Q6H PRN mild pain. * Bowel - Miralax 17GM daily, Senna/colace 2 tablets BID. * Pneumonia vaccination - Administer Prevnar 13 and/or Pneumovax 23 as necessary. * DVT prophylaxis - Hold, contraindicated due to bleeding. * Gout - Allopurinol 100MG daily. * Atrial Fibrillation - Metoprolol succinate 100MG BID, Diltiazem 180MG BID, Aspirin 81MG daily, anticoagulation contraindicated. * Hyperlipidemia - Atorvastatin 20MG QHS. * Vitamin D deficiency - D3 1000IU daily. * Vitamin B12 deficiency - B12 1000MCG every month. * Anemia of chronic kidney disease - Unable to administer Aranesp, Hemoglobin 6.9, Hematocrit 22.2, discussed with Dr. Gracia, his electrical discharge machine operator, recommend 2 units PRBC transfusion tomorrow at [facility]. * Muscle spasm - Flexeril 10MG TID PRN. * BPH - Doxazosin 4MG daily, Tamsulosin 0.4MG daily. * Diabetes Mellitus II - Glimepiride 1MG daily, Tradjenta 5MG daily. * Edema - Lasix 40MG daily. * Hypertension - Metoprolol succinate 100MG BID, Diltiazem 180MG BID. * Iron deficiency anemia - Ferrex 150MG daily twice daily. * Skin irritation - Calmoseptine BID bilateral buttocks, Eucerin twice daily. * Tinea Corporis - Nystatin powder TID. * Nutrition - MVI twice daily, Nelson 1 packet BID. * Coronary Artery Disease - Metoprolol 100MG BID, Aspirin 81MG daily, NTG 0.4MG Q5M PRN. * GERD - Pantoprazole 40MG daily. * Hypokalemia - 40MEQ twice daily. * Vitamin B-6 deficiency - B-6 100MG daily. * Zinc deficiency - Zinc 220MG daily. * Depression - Citalopram 10MG daily. * Allergic Rhinitis - [place] Nasal spray 2 sprays TID PRN.
[2018-10-13 05:10] VITALS: BP 121/53; PULSE 87
[2018-10-13] MEDS: Polyethylene Glycol 3350 17 GM PACKET PO (05:10)
[2018-10-13] MEDS: Senna/Docusate Sodium 1 Tablet 2 TABLET PO ×2 (05:10→18:00)
[2018-10-13] MEDS: dilTIAZem CD 180 MG Capsule PO ×2 (05:10→18:00)
[2018-10-13] MEDS: Doxazosin 4 MG Tablet PO (05:10)
[2018-10-13] MEDS: Metoprolol(XL)Succ 100 MG Tablet PO ×2 (05:10→18:00)
[2018-10-13] MEDS: Citalopram 10 MG Tablet PO (05:10)
[2018-10-13] MEDS: Pantoprazole Sodium 40 MG Tablet PO (05:10)
[2018-10-13] MEDS: LINAGLIPTIN 5 MG TABLET PO (05:10)
[2018-10-13] MEDS: Furosemide 40 MG Tablet PO (05:10)
[2018-10-13] MEDS: Pyridoxine HCl 100 MG Tablet PO (05:16)
[2018-10-13] MEDS: Menthol/Lanolin/Calamine/Znox 113 GM Tube 1 APPLIC TOPICAL ×2 (05:17→20:31)
[2018-10-13] MEDS: Nystatin Powder 15gm Bottle 1 APPLIC TOPICAL ×3 (05:18→20:31)
[2018-10-13 06:35] LABS: Bedside Glucose 123 mg/dL (70-110)
[2018-10-13] MEDS: Allopurinol 100 MG Tablet PO (08:05)
[2018-10-13] MEDS: Glimepiride 1 MG Tablet PO (08:05)
[2018-10-13] MEDS: Iron Polysaccharide Complex 150 MG CAPSULE PO ×2 (08:05→18:00)
[2018-10-13] MEDS: Aspirin E.C. 81 MG Tablet PO (08:05)
[2018-10-13] MEDS: Multivitamins,Ther W-Minerals Tablet 1 TABLET PO ×2 (08:05→18:00)
[2018-10-13 15:38] VITALS: BP 134/58; PULSE 64; RESP 16; TEMP 36.2; O2SAT 100
[2018-10-13 15:55] VITALS: PULSE 73; RESP 18; O2SAT 96
--- NOTE | 2018-10-13 16:19 | NURSING ---
Pt noted to have bruising to turner of LLE. Pt unaware of how bruising happened when asked by this nurse. Berkley GARVEY made aware.
[2018-10-13 18:00] VITALS: BP 134/58; PULSE 73
[2018-10-13] MEDS: Tamsulosin HCl 0.4 MG Capsule PO (18:01)
[2018-10-13] MEDS: Atorvastatin Calcium 20 MG Tablet PO (20:20)
[2018-10-14] MEDS: Nystatin Powder 15gm Bottle 1 APPLIC TOPICAL ×3 (05:56→20:20)
[2018-10-14] MEDS: Menthol/Lanolin/Calamine/Znox 113 GM Tube 1 APPLIC TOPICAL ×2 (05:56→20:25)
[2018-10-14 05:57] VITALS: BP 127/62; PULSE 75
[2018-10-14] MEDS: Pyridoxine HCl 100 MG Tablet PO (05:57)
[2018-10-14] MEDS: Metoprolol(XL)Succ 100 MG Tablet PO ×2 (05:57→16:56)
[2018-10-14] MEDS: Pantoprazole Sodium 40 MG Tablet PO (05:57)
[2018-10-14] MEDS: Doxazosin 4 MG Tablet PO (05:57)
[2018-10-14] MEDS: Furosemide 40 MG Tablet PO (05:57)
[2018-10-14] MEDS: Citalopram 10 MG Tablet PO (05:57)
[2018-10-14] MEDS: Senna/Docusate Sodium 1 Tablet 2 TABLET PO ×2 (05:57→16:57)
[2018-10-14] MEDS: LINAGLIPTIN 5 MG TABLET PO (05:57)
[2018-10-14] MEDS: dilTIAZem CD 180 MG Capsule PO ×2 (05:58→16:55)
[2018-10-14 06:31] LABS: Bedside Glucose 110 mg/dL (70-110)
[2018-10-14] MEDS: Aspirin E.C. 81 MG Tablet PO (07:38)
[2018-10-14] MEDS: Multivitamins,Ther W-Minerals Tablet 1 TABLET PO ×2 (07:38→16:56)
[2018-10-14] MEDS: Glimepiride 1 MG Tablet PO (07:38)
[2018-10-14] MEDS: Iron Polysaccharide Complex 150 MG CAPSULE PO ×2 (07:38→16:55)
[2018-10-14] MEDS: Allopurinol 100 MG Tablet PO (07:39)
--- NOTE | 2018-10-14 08:23 | MDS.RN ---
Information for the mds was obtained from review of the clinical record, interview of resident, staff, and direct observation of resident's care.
--- NOTE | 2018-10-14 08:32 | MDS.RN ---
Information for the mds was obtained from review of the clinical record, interview of resident, staff, and direct observation of resident's care
[2018-10-14] MEDS: 0.9% NaCl PICC Flush IV ×2 (11:40→20:24)
[2018-10-14 16:00] VITALS: BP 129/65; PULSE 100; RESP 18; TEMP 36.9; O2SAT 97
[2018-10-14] MEDS: Tamsulosin HCl 0.4 MG Capsule PO (16:55)
[2018-10-14 16:56] VITALS: BP 129/65; PULSE 86
[2018-10-14 17:54] LABS: Hematocrit 25.7 % (40-54); Hemoglobin 8.3 g/dl (13.0-16.5)
[2018-10-14] MEDS: Atorvastatin Calcium 20 MG Tablet PO (20:21)
[2018-10-14 20:30] VITALS: PULSE 76; RESP 18; O2SAT 95
[2018-10-15 06:46] LABS: Bedside Glucose 115 mg/dL (70-110)
[2018-10-15] MEDS: Nystatin Powder 15gm Bottle 1 APPLIC TOPICAL ×3 (06:48→20:28)
[2018-10-15] MEDS: Menthol/Lanolin/Calamine/Znox 113 GM Tube 1 APPLIC TOPICAL ×2 (06:48→20:26)
[2018-10-15] MEDS: Polyethylene Glycol 3350 17 GM PACKET PO (06:49)
[2018-10-15 06:50] VITALS: BP 129/75; PULSE 69
[2018-10-15] MEDS: Pyridoxine HCl 100 MG Tablet PO (06:50)
[2018-10-15] MEDS: LINAGLIPTIN 5 MG TABLET PO (06:50)
[2018-10-15] MEDS: Senna/Docusate Sodium 1 Tablet 2 TABLET PO ×2 (06:50→17:05)
[2018-10-15] MEDS: Furosemide 40 MG Tablet PO (06:50)
[2018-10-15] MEDS: Citalopram 10 MG Tablet PO (06:50)
[2018-10-15] MEDS: Doxazosin 4 MG Tablet PO (06:50)
[2018-10-15] MEDS: dilTIAZem CD 180 MG Capsule PO ×2 (06:50→17:05)
[2018-10-15] MEDS: Pantoprazole Sodium 40 MG Tablet PO (06:50)
[2018-10-15] MEDS: Metoprolol(XL)Succ 100 MG Tablet PO ×2 (06:50→17:06)
[2018-10-15] MEDS: 0.9% NaCl PICC Flush IV ×2 (06:52→21:54)
[2018-10-15] MEDS: Aspirin E.C. 81 MG Tablet PO (08:12)
[2018-10-15] MEDS: Allopurinol 100 MG Tablet PO (08:12)
[2018-10-15] MEDS: Multivitamins,Ther W-Minerals Tablet 1 TABLET PO ×2 (08:12→17:05)
[2018-10-15] MEDS: Iron Polysaccharide Complex 150 MG CAPSULE PO ×2 (08:12→17:03)
[2018-10-15] MEDS: Glimepiride 1 MG Tablet PO (08:12)
[2018-10-15 15:30] VITALS: BP 120/59; PULSE 75; RESP 18; TEMP 36.6; O2SAT 94
[2018-10-15] MEDS: Tamsulosin HCl 0.4 MG Capsule PO (17:03)
[2018-10-15 17:06] VITALS: BP 120/59; PULSE 75
[2018-10-15 20:30] VITALS: PULSE 88; RESP 20; O2SAT 97
[2018-10-15] MEDS: Atorvastatin Calcium 20 MG Tablet PO (20:30)
[2018-10-16] MEDS: Acetaminophen 500 MG Tablet 1000 MG PO ×2 (00:18→22:51)
[2018-10-16] MEDS: Senna/Docusate Sodium 1 Tablet 2 TABLET PO (05:29)
[2018-10-16] MEDS: Polyethylene Glycol 3350 17 GM PACKET PO (05:29)
[2018-10-16] MEDS: Citalopram 10 MG Tablet PO (05:29)
[2018-10-16] MEDS: Pantoprazole Sodium 40 MG Tablet PO (05:29)
[2018-10-16] MEDS: LINAGLIPTIN 5 MG TABLET PO (05:29)
[2018-10-16] MEDS: Pyridoxine HCl 100 MG Tablet PO (05:29)
[2018-10-16 05:30] VITALS: BP 120/60; PULSE 80
[2018-10-16] MEDS: Nystatin Powder 15gm Bottle 1 APPLIC TOPICAL ×3 (05:30→21:26)
[2018-10-16] MEDS: Menthol/Lanolin/Calamine/Znox 113 GM Tube 1 APPLIC TOPICAL ×2 (05:30→21:25)
[2018-10-16] MEDS: dilTIAZem CD 180 MG Capsule PO ×2 (05:30→16:53)
[2018-10-16] MEDS: Doxazosin 4 MG Tablet PO (05:30)
[2018-10-16] MEDS: Metoprolol(XL)Succ 100 MG Tablet PO ×2 (05:30→16:53)
[2018-10-16] MEDS: Furosemide 40 MG Tablet PO (05:30)
[2018-10-16 06:41] LABS: Bedside Glucose 116 mg/dL (70-110)
[2018-10-16 07:00] VITALS: PULSE 80; RESP 18; O2SAT 99
[2018-10-16] MEDS: Iron Polysaccharide Complex 150 MG CAPSULE PO ×2 (08:22→16:52)
[2018-10-16] MEDS: Glimepiride 1 MG Tablet PO (08:22)
[2018-10-16] MEDS: Multivitamins,Ther W-Minerals Tablet 1 TABLET PO ×2 (08:22→16:53)
[2018-10-16] MEDS: Aspirin E.C. 81 MG Tablet PO (08:22)
[2018-10-16] MEDS: Allopurinol 100 MG Tablet PO (08:22)
--- NOTE | 2018-10-16 11:37 | MDS.RN ---
Pain interview for yaakov 10/17/18 completed.
[2018-10-16 14:45] VITALS: BP 121/67; PULSE 81; RESP 18; TEMP 36.9; O2SAT 98
--- NOTE | 2018-10-16 14:47 | CASEMGMT ---
BIMS and PHQ9 interviews completed for MDS assessment. MAGGIE Yu
[2018-10-16] MEDS: Tamsulosin HCl 0.4 MG Capsule PO (16:52)
[2018-10-16 16:53] VITALS: BP 121/67; PULSE 81
[2018-10-16] MEDS: Atorvastatin Calcium 20 MG Tablet PO (21:27)
--- NOTE | 2018-10-17 03:29 | NURSING ---
During post inc care it was noted patient has pimple like area anterior scrotum right side with small amt bright red discharge. Area cleansed and slight pressure briefly and ABD pad applied to monitor discharge. Patient denies any pain. Will cont to monitor. Same reported to GURU Marr.
[2018-10-17] MEDS: Menthol/Lanolin/Calamine/Znox 113 GM Tube 1 APPLIC TOPICAL ×2 (05:29→20:21)
[2018-10-17 05:30] VITALS: BP 146/78; PULSE 68
[2018-10-17] MEDS: dilTIAZem CD 180 MG Capsule PO ×2 (05:30→18:09)
[2018-10-17] MEDS: Metoprolol(XL)Succ 100 MG Tablet PO ×2 (05:30→18:09)
[2018-10-17] MEDS: Citalopram 10 MG Tablet PO (05:30)
[2018-10-17] MEDS: Senna/Docusate Sodium 1 Tablet 2 TABLET PO (05:30)
[2018-10-17] MEDS: Pantoprazole Sodium 40 MG Tablet PO (05:30)
[2018-10-17] MEDS: Furosemide 40 MG Tablet PO (05:30)
[2018-10-17] MEDS: Doxazosin 4 MG Tablet PO (05:30)
[2018-10-17] MEDS: Pyridoxine HCl 100 MG Tablet PO (05:31)
[2018-10-17] MEDS: LINAGLIPTIN 5 MG TABLET PO (05:31)
[2018-10-17] MEDS: Nystatin Powder 15gm Bottle 1 APPLIC TOPICAL ×3 (05:33→20:21)
[2018-10-17] MEDS: Polyethylene Glycol 3350 17 GM PACKET PO (05:35)
[2018-10-17 06:30] VITALS: PULSE 68; RESP 16; O2SAT 99
[2018-10-17 06:41] LABS: Bedside Glucose 116 mg/dL (70-110)
[2018-10-17] MEDS: Multivitamins,Ther W-Minerals Tablet 1 TABLET PO ×2 (08:54→18:09)
[2018-10-17] MEDS: Iron Polysaccharide Complex 150 MG CAPSULE PO ×2 (08:54→18:08)
[2018-10-17] MEDS: Glimepiride 1 MG Tablet PO (08:54)
[2018-10-17] MEDS: Aspirin E.C. 81 MG Tablet PO (08:54)
[2018-10-17] MEDS: Allopurinol 100 MG Tablet PO (08:54)
[2018-10-17] MEDS: 0.9% NaCl PICC Flush IV ×2 (10:41→21:44)
--- NOTE | 2018-10-17 12:33 | NURSING ---
Pt c/o having diarrhea yesterday and today. MERCHANDISE SUPPORT ASSOCIATE told this nurse that pt wanted to speak with nurse. Pt stated to this nurse that he ate a bowl of peaches off lunch tray, and has c/o tenderness and pain in right upper quadrant. BP 95/53, P 62, Spo2 99% on RA, bowel sounds active. Kristen GARVEY made aware and assessed pt.
--- NOTE | 2018-10-17 13:41 | NURSING ---
Patient reports diarrhea after meals, and new onset RUQ pain, states he also feels bloated. Abdomen soft, rebound tenderness to RUQ. Bowel sounds active. S1S2 rrr. Vitals 95/53, 62, 99% RA, 18. Dr. Ni updated. New order for CBC with diff, CMP and stool for Cdiff. Patient updated.
[2018-10-17 14:14] VITALS: BP 129/65; PULSE 74; RESP 16; TEMP 36.8; O2SAT 98
[2018-10-17 15:34] LABS: Absolute Lymphocyte Count 0.59 X10^3/ul (0.83-4.51); Absolute Neutrophil Count 5.2 X10^3/uL (2.0-7.7); Basophil# 0.02 X10^3/uL; Basophil% 0.3 % (0-1); Eosinophil# 0.38 X10^3/uL; Eosinophils% 5.7 % (0-5); Hematocrit 25.5 % (40-54); Hemoglobin 8.3 g/dl (13.0-16.5); Lymphocyte # 0.59 X10^3/ul (4.0); Lymphocyte % 8.8 % (19-41); Mean Corp Hgb Conc 32.5 g/gl (32-36); Mean Corpuscular Hgb 32.2 pg (27.0-32.0); Mean Corpuscular Volume 98.8 fL (80-94); Mean Platelet Vol. 8.5 fl (6.2-12.0); Monocyte% 7.5 % (0-10); Neutrophil # 5.19 X10^3/uL (2.7-7.7); Neutrophil % 77.6 % (47-70); Platelet Count 78 K/mm3 (150-450); RBC Distribution Width CV 19.2 % (11.6-14.6); Red Blood Count 2.58 M/mm3 (4.6-6.2); White Blood Count 6.7 K/mm3 (4.4-11.0)
[2018-10-17 15:57] LABS: ALB/GLOB Ratio 0.6 RATIO (0.9-2.4); AST(SGOT) 25 U/L (15-37); Alanine Aminotransfer ALT/SGPT 46 U/L (16-61); Albumin, Serum 2.6 g/dL (3.2-5.0); Alkaline Phosphatase 227 U/L (45-117); Anion Gap 8 (5-15); BUN 68 mg/dL (7-18); BUN/Creat Ratio 46.6 RATIO (10-20); Calcium,Total 8.7 mg/dL (8.5-10.1); Chloride 108 mmol/L (98-107); Creatinine, Serum 1.46 mg/dL (0.70-1.30); EST Glomerular Filtration Rate 50 mL/min (>60); Est Glom Filt Rate - Afr Amer 61 mL/min (>60); Estimated Creatinine Clearance 53.86 ml/min; Globulin 4.7 g/dL (2.2-4.2); Glucose 105 mg/dL (74-106); Potassium 4.5 mmol/L (3.5-5.1); Protein, Total 7.3 g/dL (6.4-8.2); Sodium Level 142 mmol/L (136-145)
[2018-10-17 16:00] LABS: Differential Indicated SCAN CRITERIA MET; POSITIVE COUNT NO; POSITIVE DIFFERENTIAL YES; POSITIVE MORPHOLOGY YES
[2018-10-17 16:15] LABS: Anisocytosis 1+; Differential Comment SCANNED
[2018-10-17] MEDS: Tamsulosin HCl 0.4 MG Capsule PO (18:08)
[2018-10-17 18:09] VITALS: BP 129/65; PULSE 74
--- NOTE | 2018-10-17 18:55 | NURSING ---
Pt placed on contact precautions d/t having loose stools. All care provided in room.
[2018-10-17] MEDS: Atorvastatin Calcium 20 MG Tablet PO (20:22)
[2018-10-18 05:13] LABS: Absolute Lymphocyte Count 0.65 X10^3/ul (0.83-4.51); Absolute Neutrophil Count 5.1 X10^3/uL (2.0-7.7); Basophil# 0.02 X10^3/uL; Basophil% 0.3 % (0-1); Eosinophil# 0.43 X10^3/uL; Eosinophils% 6.4 % (0-5); Hemoglobin 8.2 g/dl (13.0-16.5); Lymphocyte # 0.65 X10^3/ul (4.0); Lymphocyte % 9.7 % (19-41); Mean Corp Hgb Conc 31.5 g/gl (32-36); Mean Corpuscular Hgb 31.8 pg (27.0-32.0); Mean Corpuscular Volume 100.8 fL (80-94); Mean Platelet Vol. 8.7 fl (6.2-12.0); Monocyte# 0.47 X10^3/uL; Neutrophil # 5.09 X10^3/uL (2.7-7.7); Neutrophil % 76.5 % (47-70); Platelet Count 107 K/mm3 (150-450); RBC Distribution Width CV 18.7 % (11.6-14.6); RBC Distribution Width SD 66.3 fl (35.1-43.9); Red Blood Count 2.58 M/mm3 (4.6-6.2); White Blood Count 6.7 K/mm3 (4.4-11.0)
[2018-10-18 05:14] LABS: Anion Gap 5 (5-15); BUN 68 mg/dL (7-18); Calcium,Total 8.9 mg/dL (8.5-10.1); Chloride 109 mmol/L (98-107); Creatinine, Serum 1.51 mg/dL (0.70-1.30); EST Glomerular Filtration Rate 48 mL/min (>60); Est Glom Filt Rate - Afr Amer 59 mL/min (>60); Estimated Creatinine Clearance 52.07 ml/min; Glucose 114 mg/dL (74-106); Potassium 4.2 mmol/L (3.5-5.1); Sodium Level 142 mmol/L (136-145)
[2018-10-18 05:45] LABS: Differential Indicated SCAN CRITERIA MET; POSITIVE COUNT NO; POSITIVE DIFFERENTIAL NO; POSITIVE MORPHOLOGY YES
[2018-10-18 06:36] LABS: Bedside Glucose 109 mg/dL (70-110)
[2018-10-18 06:51] LABS: Differential Comment SCANNED
--- NOTE | 2018-10-18 08:00 | US_ITS ---
STUDY: ABDOMINAL ULTRASOUND - RIGHT UPPER QUADRANT REASON FOR VISIT: Male, 73 years old. Right upper quadrant pain and liver pain TECHNIQUE: Ultrasound evaluation of the right upper quadrant was performed with real-time and static kwan-scale imaging. TECHNICAL QUALITY: Adequate. COMPARISON: None. FINDINGS: Liver: The liver measures 19.9 cm. There is normal echogenicity of the liver. The bile ducts are within normal limits. There is hepatic color flow. The direction of portal flow is hepatopetal. There is no demonstrated mass lesion. Gallbladder: Normal distended gallbladder. The gallbladder wall measures 4 mm. There is a negative sonographic Jorge's sign. There is no pericholecystic fluid. There is biliary sludge dependent within the gallbladder. Common Bile Duct (C.B.D.): The common bile duct measures 6 mm. Pancreas: Normal size of the head, body and tail of the pancreas. There is increased echogenicity of the pancreas. There is no demonstrated pancreatic mass or cyst. Right Kidney: Normal size of the right kidney. The right kidney measures 13.6 x 6.2 x 5.6 cm. Normal renal cortex. The right cortex measures 1.2 cm. 11 x 15 x 10 mm hypoechoic area in the right kidney. There is no right hydronephrosis. US/Gallbladder IMPRESSION: Liver is enlarged. Fatty infiltration of the liver. Gallbladder sludge. Gallbladder wall thickening. Question right renal cyst. Electronically Signed: Wally Pineda, at 9:15 EDT , Service support ,
[2018-10-18 08:41] VITALS: BP 139/69; PULSE 76; RESP 18; TEMP 36.8; O2SAT 98
[2018-10-18] MEDS: dilTIAZem CD 180 MG Capsule PO ×2 (08:52→18:31)
[2018-10-18 08:53] VITALS: BP 139/69; PULSE 76
[2018-10-18] MEDS: Metoprolol(XL)Succ 100 MG Tablet PO ×2 (08:53→18:31)
[2018-10-18] MEDS: Pantoprazole Sodium 40 MG Tablet PO (08:53)
[2018-10-18] MEDS: Citalopram 10 MG Tablet PO (08:53)
[2018-10-18] MEDS: Pyridoxine HCl 100 MG Tablet PO (08:53)
[2018-10-18] MEDS: Iron Polysaccharide Complex 150 MG CAPSULE PO ×2 (08:54→18:30)
[2018-10-18] MEDS: Multivitamins,Ther W-Minerals Tablet 1 TABLET PO ×2 (08:54→18:31)
[2018-10-18] MEDS: Allopurinol 100 MG Tablet PO (08:54)
[2018-10-18] MEDS: Aspirin E.C. 81 MG Tablet PO (08:54)
--- NOTE | 2018-10-18 09:07 | NURSING ---
Pt was NPO after midnight d/t having an U/S this AM. 6am scheduled pills were held until U/S was completed. After completion of U/S this nurse spoke with Jayden GARVEY and given the ok to give 6am pills at this time, and administer Furosemide and Doxazosin 1 hour later. BS 109 this AM. Hold Tradjenta and Glimeperide until after pt eats breakfast per Jayden GARVEY.
[2018-10-18 10:00] VITALS: PULSE 76; RESP 18; O2SAT 98
[2018-10-18] MEDS: Furosemide 40 MG Tablet PO (10:10)
[2018-10-18] MEDS: Doxazosin 4 MG Tablet PO (10:10)
[2018-10-18] MEDS: Glimepiride 1 MG Tablet PO (10:10)
[2018-10-18] MEDS: LINAGLIPTIN 5 MG TABLET PO (10:11)
[2018-10-18] MEDS: Nystatin Powder 15gm Bottle 1 APPLIC TOPICAL ×2 (13:37→20:13)
[2018-10-18 16:00] VITALS: BP 120/68; PULSE 78; RESP 16; TEMP 36.8; O2SAT 99
--- NOTE | 2018-10-18 16:45 | NURSING ---
Patient without any episodes of diarrhea today. Dr. Ni reviewed US results, hamilton MAYBERRY to d/c stool for cdiff d/t cessation of diarrhea.
[2018-10-18 18:31] VITALS: BP 120/68; PULSE 78
[2018-10-18] MEDS: Tamsulosin HCl 0.4 MG Capsule PO (18:31)
[2018-10-18] MEDS: Menthol/Lanolin/Calamine/Znox 113 GM Tube 1 APPLIC TOPICAL (20:13)
[2018-10-18] MEDS: Atorvastatin Calcium 20 MG Tablet PO (20:14)
[2018-10-18] MEDS: 0.9% NaCl PICC Flush IV (22:19)
[2018-10-19] MEDS: Pantoprazole Sodium 40 MG Tablet PO (05:18)
[2018-10-19] MEDS: Menthol/Lanolin/Calamine/Znox 113 GM Tube 1 APPLIC TOPICAL ×2 (05:18→20:38)
[2018-10-19] MEDS: Nystatin Powder 15gm Bottle 1 APPLIC TOPICAL ×3 (05:18→20:40)
[2018-10-19] MEDS: Pyridoxine HCl 100 MG Tablet PO (05:19)
[2018-10-19 05:20] VITALS: BP 132/71; PULSE 79
[2018-10-19] MEDS: Furosemide 40 MG Tablet PO (05:20)
[2018-10-19] MEDS: Doxazosin 4 MG Tablet PO (05:20)
[2018-10-19] MEDS: dilTIAZem CD 180 MG Capsule PO ×2 (05:20→17:59)
[2018-10-19] MEDS: LINAGLIPTIN 5 MG TABLET PO (05:20)
[2018-10-19] MEDS: Metoprolol(XL)Succ 100 MG Tablet PO ×2 (05:20→17:59)
[2018-10-19] MEDS: Citalopram 10 MG Tablet PO (05:20)
[2018-10-19 06:30] LABS: Bedside Glucose 120 mg/dL (70-110)
[2018-10-19] MEDS: Glimepiride 1 MG Tablet PO (08:07)
[2018-10-19] MEDS: Multivitamins,Ther W-Minerals Tablet 1 TABLET PO ×2 (08:08→17:58)
[2018-10-19] MEDS: Iron Polysaccharide Complex 150 MG CAPSULE PO ×2 (08:08→17:57)
[2018-10-19] MEDS: Aspirin E.C. 81 MG Tablet PO (08:08)
[2018-10-19] MEDS: Allopurinol 100 MG Tablet PO (08:09)
[2018-10-19] MEDS: 0.9% NaCl PICC Flush IV ×2 (09:31→21:34)
[2018-10-19 15:40] VITALS: BP 132/62; PULSE 69; RESP 16; TEMP 36.7; O2SAT 97
[2018-10-19] MEDS: Tamsulosin HCl 0.4 MG Capsule PO (17:57)
[2018-10-19 17:59] VITALS: BP 132/62; PULSE 69
[2018-10-19] MEDS: Atorvastatin Calcium 20 MG Tablet PO (20:41)
[2018-10-20] MEDS: Nystatin Powder 15gm Bottle 1 APPLIC TOPICAL ×3 (04:59→20:08)
[2018-10-20] MEDS: Menthol/Lanolin/Calamine/Znox 113 GM Tube 1 APPLIC TOPICAL ×2 (04:59→20:09)
[2018-10-20] MEDS: Polyethylene Glycol 3350 17 GM PACKET PO (05:00)
[2018-10-20 05:02] VITALS: BP 121/61; PULSE 81
[2018-10-20] MEDS: Metoprolol(XL)Succ 100 MG Tablet PO ×2 (05:02→17:02)
[2018-10-20] MEDS: Pyridoxine HCl 100 MG Tablet PO (05:02)
[2018-10-20] MEDS: LINAGLIPTIN 5 MG TABLET PO (05:02)
[2018-10-20] MEDS: Doxazosin 4 MG Tablet PO (05:03)
[2018-10-20] MEDS: Furosemide 40 MG Tablet PO (05:03)
[2018-10-20] MEDS: Citalopram 10 MG Tablet PO (05:03)
[2018-10-20] MEDS: Pantoprazole Sodium 40 MG Tablet PO (05:03)
[2018-10-20] MEDS: dilTIAZem CD 180 MG Capsule PO ×2 (05:03→17:03)
[2018-10-20] MEDS: Senna/Docusate Sodium 1 Tablet 2 TABLET PO ×2 (05:06→17:03)
[2018-10-20 06:46] LABS: Bedside Glucose 115 mg/dL (70-110)
[2018-10-20] MEDS: Multivitamins,Ther W-Minerals Tablet 1 TABLET PO ×2 (08:24→17:03)
[2018-10-20] MEDS: Aspirin E.C. 81 MG Tablet PO (08:24)
[2018-10-20] MEDS: Allopurinol 100 MG Tablet PO (08:24)
[2018-10-20] MEDS: Iron Polysaccharide Complex 150 MG CAPSULE PO ×2 (08:24→17:02)
[2018-10-20] MEDS: Glimepiride 1 MG Tablet PO (08:24)
[2018-10-20] MEDS: 0.9% NaCl PICC Flush IV ×2 (10:44→20:12)
[2018-10-20 15:55] VITALS: BP 127/69; PULSE 70; RESP 18; TEMP 36.6; O2SAT 94
[2018-10-20 17:02] VITALS: BP 127/69; PULSE 70
[2018-10-20] MEDS: Tamsulosin HCl 0.4 MG Capsule PO (17:05)
[2018-10-20] MEDS: Atorvastatin Calcium 20 MG Tablet PO (20:09)
[2018-10-20 20:15] VITALS: PULSE 64; RESP 18; O2SAT 98
[2018-10-21] MEDS: Nystatin Powder 15gm Bottle 1 APPLIC TOPICAL ×3 (05:30→20:43)
[2018-10-21] MEDS: Senna/Docusate Sodium 1 Tablet 2 TABLET PO ×2 (05:31→17:16)
[2018-10-21] MEDS: Citalopram 10 MG Tablet PO (05:32)
[2018-10-21] MEDS: Furosemide 40 MG Tablet PO (05:32)
[2018-10-21] MEDS: dilTIAZem CD 180 MG Capsule PO ×2 (05:32→17:15)
[2018-10-21] MEDS: Doxazosin 4 MG Tablet PO (05:32)
[2018-10-21] MEDS: LINAGLIPTIN 5 MG TABLET PO (05:32)
[2018-10-21] MEDS: Pyridoxine HCl 100 MG Tablet PO (05:32)
[2018-10-21] MEDS: Pantoprazole Sodium 40 MG Tablet PO (05:32)
[2018-10-21 05:33] VITALS: BP 123/60; PULSE 73
[2018-10-21] MEDS: Metoprolol(XL)Succ 100 MG Tablet PO ×2 (05:33→17:15)
[2018-10-21] MEDS: Menthol/Lanolin/Calamine/Znox 113 GM Tube 1 APPLIC TOPICAL ×2 (05:35→20:40)
[2018-10-21 07:01] LABS: Bedside Glucose 114 mg/dL (70-110)
[2018-10-21] MEDS: Aspirin E.C. 81 MG Tablet PO (08:33)
[2018-10-21] MEDS: Glimepiride 1 MG Tablet PO (08:33)
[2018-10-21] MEDS: Allopurinol 100 MG Tablet PO (08:33)
[2018-10-21] MEDS: Multivitamins,Ther W-Minerals Tablet 1 TABLET PO ×2 (08:33→17:15)
[2018-10-21] MEDS: Iron Polysaccharide Complex 150 MG CAPSULE PO ×2 (08:33→17:13)
[2018-10-21 10:00] VITALS: PULSE 80; RESP 18; O2SAT 98
[2018-10-21] MEDS: 0.9% NaCl PICC Flush IV ×2 (11:07→20:44)
[2018-10-21 16:00] VITALS: BP 122/64; PULSE 66; RESP 16; TEMP 36.7; O2SAT 95
[2018-10-21] MEDS: Tamsulosin HCl 0.4 MG Capsule PO (17:14)
[2018-10-21 17:15] VITALS: BP 121/54; PULSE 61
[2018-10-21] MEDS: Atorvastatin Calcium 20 MG Tablet PO (20:41)
[2018-10-22] MEDS: Nystatin Powder 15gm Bottle 1 APPLIC TOPICAL ×3 (05:07→20:02)
[2018-10-22] MEDS: Polyethylene Glycol 3350 17 GM PACKET PO (05:08)
[2018-10-22] MEDS: LINAGLIPTIN 5 MG TABLET PO (05:09)
[2018-10-22] MEDS: Senna/Docusate Sodium 1 Tablet 2 TABLET PO ×2 (05:09→17:56)
[2018-10-22 05:10] VITALS: BP 128/55; PULSE 69
[2018-10-22] MEDS: Pyridoxine HCl 100 MG Tablet PO (05:10)
[2018-10-22] MEDS: Furosemide 40 MG Tablet PO (05:10)
[2018-10-22] MEDS: Pantoprazole Sodium 40 MG Tablet PO (05:10)
[2018-10-22] MEDS: dilTIAZem CD 180 MG Capsule PO ×2 (05:10→17:56)
[2018-10-22] MEDS: Metoprolol(XL)Succ 100 MG Tablet PO ×2 (05:10→17:56)
[2018-10-22] MEDS: Doxazosin 4 MG Tablet PO (05:10)
[2018-10-22] MEDS: Menthol/Lanolin/Calamine/Znox 113 GM Tube 1 APPLIC TOPICAL ×2 (05:13→20:01)
[2018-10-22] MEDS: Citalopram 10 MG Tablet PO (05:17)
[2018-10-22 06:46] LABS: Bedside Glucose 124 mg/dL (70-110)
[2018-10-22] MEDS: Glimepiride 1 MG Tablet PO (08:27)
[2018-10-22] MEDS: Aspirin E.C. 81 MG Tablet PO (08:27)
[2018-10-22] MEDS: Multivitamins,Ther W-Minerals Tablet 1 TABLET PO ×2 (08:28→17:56)
[2018-10-22] MEDS: Iron Polysaccharide Complex 150 MG CAPSULE PO ×2 (08:28→17:55)
[2018-10-22] MEDS: Allopurinol 100 MG Tablet PO (08:28)
[2018-10-22] MEDS: 0.9% NaCl PICC Flush IV ×2 (09:57→22:15)
[2018-10-22 10:00] VITALS: PULSE 72; RESP 18; O2SAT 98
--- NOTE | 2018-10-22 12:54 | NURSING ---
Pt has noted scratches to upper left buttock. Pt denies scratching and stated, I can't reach back there to scratch. Bob RN aware.
[2018-10-22 15:53] VITALS: BP 130/55; PULSE 73; RESP 18; TEMP 36.6; O2SAT 98
[2018-10-22] MEDS: Tamsulosin HCl 0.4 MG Capsule PO (17:55)
[2018-10-22 17:56] VITALS: BP 130/55; PULSE 73
[2018-10-22] MEDS: Carbamide Peroxide 15 ML Bottle 5 DRP OTIC (20:01)
[2018-10-22] MEDS: Atorvastatin Calcium 20 MG Tablet PO (20:02)
[2018-10-23] MEDS: Menthol/Lanolin/Calamine/Znox 113 GM Tube 1 APPLIC TOPICAL ×2 (05:41→21:35)
[2018-10-23] MEDS: LINAGLIPTIN 5 MG TABLET PO (05:41)
[2018-10-23] MEDS: Senna/Docusate Sodium 1 Tablet 2 TABLET PO ×2 (05:42→17:30)
[2018-10-23] MEDS: Pyridoxine HCl 100 MG Tablet PO (05:42)
[2018-10-23] MEDS: dilTIAZem CD 180 MG Capsule PO ×2 (05:42→17:31)
[2018-10-23] MEDS: Doxazosin 4 MG Tablet PO (05:43)
[2018-10-23] MEDS: Furosemide 40 MG Tablet PO (05:43)
[2018-10-23] MEDS: Citalopram 10 MG Tablet PO (05:43)
[2018-10-23] MEDS: Nystatin Powder 15gm Bottle 1 APPLIC TOPICAL ×3 (05:43→21:35)
[2018-10-23] MEDS: Pantoprazole Sodium 40 MG Tablet PO (05:44)
[2018-10-23] MEDS: Polyethylene Glycol 3350 17 GM PACKET PO (05:45)
[2018-10-23] MEDS: Carbamide Peroxide 15 ML Bottle 5 DRP OTIC ×2 (05:45→17:35)
[2018-10-23 05:59] VITALS: BP 128/71; PULSE 69
[2018-10-23] MEDS: Metoprolol(XL)Succ 100 MG Tablet PO ×2 (05:59→17:30)
[2018-10-23 06:26] LABS: Bedside Glucose 108 mg/dL (70-110)
[2018-10-23] MEDS: Iron Polysaccharide Complex 150 MG CAPSULE PO ×2 (08:02→17:31)
[2018-10-23] MEDS: Glimepiride 1 MG Tablet PO (08:02)
[2018-10-23] MEDS: Multivitamins,Ther W-Minerals Tablet 1 TABLET PO ×2 (08:02→17:30)
[2018-10-23] MEDS: Aspirin E.C. 81 MG Tablet PO (08:02)
[2018-10-23] MEDS: Allopurinol 100 MG Tablet PO (08:02)
--- NOTE | 2018-10-23 08:51 | MDS.RN ---
Information for the mds was obtained from review of the clinical record, interview of resident, staff, and direct observation of resident's care.
[2018-10-23] MEDS: Cyanocobalamin (B12) 1,000 MCG/ML Vial 1000 MCG IM (10:32)
[2018-10-23 16:00] VITALS: BP 116/59; PULSE 62; RESP 18; TEMP 36.9; O2SAT 99
[2018-10-23 17:30] VITALS: BP 116/59; PULSE 62
[2018-10-23] MEDS: Tamsulosin HCl 0.4 MG Capsule PO (17:31)
[2018-10-23] MEDS: Atorvastatin Calcium 20 MG Tablet PO (21:35)
[2018-10-23 21:45] VITALS: PULSE 66; RESP 16; O2SAT 99
[2018-10-23] MEDS: 0.9% NaCl PICC Flush IV (22:47)
[2018-10-24] MEDS: Nystatin Powder 15gm Bottle 1 APPLIC TOPICAL ×3 (05:15→21:59)
[2018-10-24] MEDS: Menthol/Lanolin/Calamine/Znox 113 GM Tube 1 APPLIC TOPICAL ×2 (05:15→21:58)
[2018-10-24] MEDS: Carbamide Peroxide 15 ML Bottle 5 DRP OTIC ×2 (05:19→17:39)
[2018-10-24] MEDS: Polyethylene Glycol 3350 17 GM PACKET PO (05:20)
[2018-10-24] MEDS: Senna/Docusate Sodium 1 Tablet 2 TABLET PO ×2 (05:20→17:39)
[2018-10-24 05:21] VITALS: BP 144/79; PULSE 76
[2018-10-24] MEDS: LINAGLIPTIN 5 MG TABLET PO (05:21)
[2018-10-24] MEDS: Furosemide 40 MG Tablet PO (05:21)
[2018-10-24] MEDS: Pantoprazole Sodium 40 MG Tablet PO (05:21)
[2018-10-24] MEDS: Metoprolol(XL)Succ 100 MG Tablet PO ×2 (05:21→17:38)
[2018-10-24] MEDS: Doxazosin 4 MG Tablet PO (05:22)
[2018-10-24] MEDS: Pyridoxine HCl 100 MG Tablet PO (05:22)
[2018-10-24] MEDS: dilTIAZem CD 180 MG Capsule PO ×2 (05:23→17:38)
[2018-10-24] MEDS: Citalopram 10 MG Tablet PO (05:24)
[2018-10-24 06:45] LABS: Bedside Glucose 134 mg/dL (70-110)
[2018-10-24] MEDS: Aspirin E.C. 81 MG Tablet PO (08:05)
[2018-10-24] MEDS: Glimepiride 1 MG Tablet PO (08:05)
[2018-10-24] MEDS: Iron Polysaccharide Complex 150 MG CAPSULE PO ×2 (08:05→17:36)
[2018-10-24] MEDS: Allopurinol 100 MG Tablet PO (08:05)
[2018-10-24] MEDS: Multivitamins,Ther W-Minerals Tablet 1 TABLET PO ×2 (08:05→17:37)
[2018-10-24 15:00] VITALS: PULSE 74; RESP 16; O2SAT 98
[2018-10-24 15:39] VITALS: BP 140/70; PULSE 69; RESP 18; TEMP 36.7; O2SAT 98
[2018-10-24] MEDS: Tamsulosin HCl 0.4 MG Capsule PO ×2 (17:37→17:38)
[2018-10-24 17:38] VITALS: BP 140/70; PULSE 69
[2018-10-24] MEDS: Atorvastatin Calcium 20 MG Tablet PO (22:00)
[2018-10-24] MEDS: Acetaminophen 500 MG Tablet 1000 MG PO (22:09)
[2018-10-24] MEDS: Sodium Chloride 0.65% 1 SPRAY SPRAY.BTL 2 SPRAY NASAL (22:11)
[2018-10-24] MEDS: 0.9% NaCl PICC Flush IV (23:19)
[2018-10-25 05:37] LABS: Anion Gap 6 (5-15); BUN 51 mg/dL (7-18); BUN/Creat Ratio 33.3 RATIO (10-20); Calcium,Total 8.7 mg/dL (8.5-10.1); Chloride 109 mmol/L (98-107); Creatinine, Serum 1.53 mg/dL (0.70-1.30); EST Glomerular Filtration Rate 48 mL/min (>60); Est Glom Filt Rate - Afr Amer 58 mL/min (>60); Estimated Creatinine Clearance 51.39 ml/min; Glucose 132 mg/dL (74-106); Potassium 4.4 mmol/L (3.5-5.1); Sodium Level 141 mmol/L (136-145)
[2018-10-25 06:19] LABS: Absolute Lymphocyte Count 0.71 X10^3/ul (0.83-4.51); Absolute Neutrophil Count 6.4 X10^3/uL (2.0-7.7); Basophil# 0.03 X10^3/uL; Basophil% 0.4 % (0-1); Eosinophil# 0.25 X10^3/uL; Eosinophils% 3.1 % (0-5); Hematocrit 24.3 % (40-54); Lymphocyte # 0.71 X10^3/ul (4.0); Lymphocyte % 8.9 % (19-41); Mean Corp Hgb Conc 32.9 g/gl (32-36); Mean Corpuscular Hgb 32.7 pg (27.0-32.0); Mean Corpuscular Volume 99.2 fL (80-94); Mean Platelet Vol. 8.5 fl (6.2-12.0); Monocyte# 0.55 X10^3/uL; Monocyte% 6.9 % (0-10); Neutrophil # 6.39 X10^3/uL (2.7-7.7); Neutrophil % 80.4 % (47-70); Platelet Count 87 K/mm3 (150-450); RBC Distribution Width CV 18.9 % (11.6-14.6); RBC Distribution Width SD 68.9 fl (35.1-43.9); Red Blood Count 2.45 M/mm3 (4.6-6.2)
[2018-10-25] MEDS: Menthol/Lanolin/Calamine/Znox 113 GM Tube 1 APPLIC TOPICAL ×2 (06:24→06:25)
[2018-10-25 06:25] LABS: Differential Indicated SCAN CRITERIA MET; POSITIVE COUNT NO; POSITIVE DIFFERENTIAL NO; POSITIVE MORPHOLOGY YES
[2018-10-25] MEDS: Polyethylene Glycol 3350 17 GM PACKET PO (06:27)
[2018-10-25 06:28] VITALS: BP 130/72; PULSE 87
[2018-10-25] MEDS: Senna/Docusate Sodium 1 Tablet 2 TABLET PO ×2 (06:28→17:13)
[2018-10-25] MEDS: Metoprolol(XL)Succ 100 MG Tablet PO ×2 (06:28→17:13)
[2018-10-25] MEDS: Pantoprazole Sodium 40 MG Tablet PO (06:28)
[2018-10-25] MEDS: dilTIAZem CD 180 MG Capsule PO ×2 (06:28→17:13)
[2018-10-25] MEDS: Pyridoxine HCl 100 MG Tablet PO (06:32)
[2018-10-25] MEDS: Nystatin Powder 15gm Bottle 1 APPLIC TOPICAL ×3 (06:32→20:37)
[2018-10-25] MEDS: LINAGLIPTIN 5 MG TABLET PO (06:32)
[2018-10-25] MEDS: Furosemide 40 MG Tablet PO (06:33)
[2018-10-25] MEDS: Doxazosin 4 MG Tablet PO (06:33)
[2018-10-25] MEDS: Citalopram 10 MG Tablet PO (06:33)
[2018-10-25] MEDS: Carbamide Peroxide 15 ML Bottle 5 DRP OTIC ×2 (06:35→17:14)
[2018-10-25 06:56] LABS: Bedside Glucose 136 mg/dL (70-110)
[2018-10-25 07:02] LABS: Differential Comment SCANNED
[2018-10-25] MEDS: Aspirin E.C. 81 MG Tablet PO (08:14)
[2018-10-25] MEDS: Glimepiride 1 MG Tablet PO (08:14)
[2018-10-25] MEDS: Allopurinol 100 MG Tablet PO (08:14)
[2018-10-25] MEDS: Iron Polysaccharide Complex 150 MG CAPSULE PO ×2 (08:14→17:13)
[2018-10-25] MEDS: Multivitamins,Ther W-Minerals Tablet 1 TABLET PO ×2 (08:14→17:13)
[2018-10-25] MEDS: 0.9% NaCl PICC Flush IV (08:47)
--- NOTE | 2018-10-25 08:51 | NURSING ---
broadcast journalist stating that pt requested breakfast stating she was hungry, pt starting to get her set up for breakfast and came to room and upset because he wanted to feed her prunes and yogurt prior to breakfast. Pt states she is not in her right mind to ask for breakfast., pt ringing call light appropriately all morning.
[2018-10-25 15:33] VITALS: BP 120/48; PULSE 72; RESP 16; TEMP 36.8; O2SAT 85
[2018-10-25 17:13] VITALS: BP 120/48; PULSE 72
[2018-10-25] MEDS: Atorvastatin Calcium 20 MG Tablet PO (20:36)
[2018-10-26] MEDS: Menthol/Lanolin/Calamine/Znox 113 GM Tube 1 APPLIC TOPICAL ×2 (05:19→20:55)
[2018-10-26] MEDS: Citalopram 10 MG Tablet PO (05:20)
[2018-10-26] MEDS: dilTIAZem CD 180 MG Capsule PO ×2 (05:20→17:54)
[2018-10-26] MEDS: Furosemide 40 MG Tablet PO (05:21)
[2018-10-26] MEDS: Doxazosin 4 MG Tablet PO (05:21)
[2018-10-26] MEDS: Pantoprazole Sodium 40 MG Tablet PO (05:21)
[2018-10-26] MEDS: Carbamide Peroxide 15 ML Bottle 5 DRP OTIC ×2 (05:21→18:39)
[2018-10-26] MEDS: LINAGLIPTIN 5 MG TABLET PO (05:21)
[2018-10-26] MEDS: Nystatin Powder 15gm Bottle 1 APPLIC TOPICAL ×3 (05:22→20:55)
[2018-10-26 05:23] VITALS: BP 128/71; PULSE 74
[2018-10-26] MEDS: Metoprolol(XL)Succ 100 MG Tablet PO ×2 (05:23→17:58)
[2018-10-26] MEDS: Pyridoxine HCl 100 MG Tablet PO (05:23)
[2018-10-26] MEDS: Senna/Docusate Sodium 1 Tablet 2 TABLET PO ×2 (05:23→17:54)
[2018-10-26] MEDS: Glimepiride 1 MG Tablet PO (08:34)
[2018-10-26] MEDS: Aspirin E.C. 81 MG Tablet PO (08:34)
[2018-10-26] MEDS: Multivitamins,Ther W-Minerals Tablet 1 TABLET PO ×2 (08:34→17:54)
[2018-10-26] MEDS: Allopurinol 100 MG Tablet PO (08:34)
[2018-10-26] MEDS: Iron Polysaccharide Complex 150 MG CAPSULE PO ×2 (08:35→17:53)
[2018-10-26] MEDS: 0.9% NaCl PICC Flush IV ×2 (10:47→21:55)
[2018-10-26 15:41] VITALS: BP 121/60; PULSE 61; RESP 14; TEMP 36.4; O2SAT 98
[2018-10-26] MEDS: Tamsulosin HCl 0.4 MG Capsule PO (17:53)
[2018-10-26 17:58] VITALS: BP 121/60; PULSE 61
[2018-10-26] MEDS: Atorvastatin Calcium 20 MG Tablet PO (20:57)
[2018-10-26 21:00] VITALS: PULSE 78; RESP 16; O2SAT 97
[2018-10-27] MEDS: Menthol/Lanolin/Calamine/Znox 113 GM Tube 1 APPLIC TOPICAL ×2 (05:41→20:55)
[2018-10-27] MEDS: Polyethylene Glycol 3350 17 GM PACKET PO (05:42)
[2018-10-27] MEDS: Carbamide Peroxide 15 ML Bottle 5 DRP OTIC ×2 (05:43→17:15)
[2018-10-27] MEDS: dilTIAZem CD 180 MG Capsule PO ×2 (05:45→17:15)
[2018-10-27] MEDS: Doxazosin 4 MG Tablet PO (05:45)
[2018-10-27 05:46] VITALS: BP 119/74; PULSE 84
[2018-10-27] MEDS: LINAGLIPTIN 5 MG TABLET PO (05:46)
[2018-10-27] MEDS: Pantoprazole Sodium 40 MG Tablet PO (05:46)
[2018-10-27] MEDS: Metoprolol(XL)Succ 100 MG Tablet PO ×2 (05:46→17:16)
[2018-10-27] MEDS: Senna/Docusate Sodium 1 Tablet 2 TABLET PO ×2 (05:46→17:15)
[2018-10-27] MEDS: Pyridoxine HCl 100 MG Tablet PO (05:46)
[2018-10-27] MEDS: Nystatin Powder 15gm Bottle 1 APPLIC TOPICAL ×3 (05:47→20:56)
[2018-10-27] MEDS: Furosemide 40 MG Tablet PO (05:48)
[2018-10-27] MEDS: Citalopram 10 MG Tablet PO (05:50)
[2018-10-27 06:50] LABS: Bedside Glucose 110 mg/dL (70-110)
[2018-10-27] MEDS: Allopurinol 100 MG Tablet PO (08:02)
[2018-10-27] MEDS: Iron Polysaccharide Complex 150 MG CAPSULE PO ×2 (08:02→17:15)
[2018-10-27] MEDS: Glimepiride 1 MG Tablet PO (08:02)
[2018-10-27] MEDS: Aspirin E.C. 81 MG Tablet PO (08:02)
[2018-10-27] MEDS: Multivitamins,Ther W-Minerals Tablet 1 TABLET PO ×2 (08:02→17:15)
[2018-10-27 08:15] VITALS: BP 136/69; PULSE 86; O2SAT 97
[2018-10-27 15:15] VITALS: BP 136/69; PULSE 75; RESP 18; TEMP 36.2; O2SAT 99
[2018-10-27] MEDS: Tamsulosin HCl 0.4 MG Capsule PO (17:15)
[2018-10-27 17:16] VITALS: BP 136/69; PULSE 75
[2018-10-27 20:30] VITALS: PULSE 70; RESP 18; O2SAT 94
[2018-10-27] MEDS: Atorvastatin Calcium 20 MG Tablet PO (20:59)
[2018-10-27] MEDS: 0.9% NaCl PICC Flush IV ×2 (22:08→22:10)
--- NOTE | 2018-10-28 03:16 | NURSING ---
Addendum entered by Sophie Xie 10/28/18 09:40: Dr Ni updated on urine, no new orders but just monitor. Original Note: ELEMENT BURNER was assisting patient with urinal and called this nurse in to room to check urine. Urine is cloudy yellow. Patient denies any dysuria no strong odor noted. Temp 97.7 tympanic. Fluids enc and take fair. GURU Burt in room also and observed urine. Carmle will notify Dr Ni. Will cont to monitor.
[2018-10-28] MEDS: Nystatin Powder 15gm Bottle 1 APPLIC TOPICAL ×3 (05:50→21:45)
[2018-10-28] MEDS: Carbamide Peroxide 15 ML Bottle 5 DRP OTIC ×2 (05:51→18:56)
[2018-10-28] MEDS: Menthol/Lanolin/Calamine/Znox 113 GM Tube 1 APPLIC TOPICAL ×2 (05:51→21:45)
[2018-10-28] MEDS: Doxazosin 4 MG Tablet PO (05:52)
[2018-10-28] MEDS: Furosemide 40 MG Tablet PO (05:52)
[2018-10-28] MEDS: Senna/Docusate Sodium 1 Tablet 2 TABLET PO ×2 (05:52→17:21)
[2018-10-28] MEDS: Polyethylene Glycol 3350 17 GM PACKET PO (05:52)
[2018-10-28] MEDS: Citalopram 10 MG Tablet PO (05:52)
[2018-10-28] MEDS: Pantoprazole Sodium 40 MG Tablet PO (05:52)
[2018-10-28 05:53] VITALS: BP 138/83; PULSE 68
[2018-10-28] MEDS: Metoprolol(XL)Succ 100 MG Tablet PO ×2 (05:53→17:21)
[2018-10-28] MEDS: Pyridoxine HCl 100 MG Tablet PO (05:53)
[2018-10-28] MEDS: dilTIAZem CD 180 MG Capsule PO ×2 (05:53→17:20)
[2018-10-28] MEDS: LINAGLIPTIN 5 MG TABLET PO (05:53)
[2018-10-28 06:36] LABS: Bedside Glucose 132 mg/dL (70-110)
[2018-10-28] MEDS: Aspirin E.C. 81 MG Tablet PO (08:48)
[2018-10-28] MEDS: Iron Polysaccharide Complex 150 MG CAPSULE PO ×2 (08:48→17:19)
[2018-10-28] MEDS: Allopurinol 100 MG Tablet PO (08:48)
[2018-10-28] MEDS: Glimepiride 1 MG Tablet PO (08:48)
[2018-10-28] MEDS: Multivitamins,Ther W-Minerals Tablet 1 TABLET PO ×2 (08:48→17:19)
[2018-10-28] MEDS: 0.9% NaCl PICC Flush IV ×2 (11:31→21:29)
[2018-10-28 11:45] VITALS: PULSE 60; RESP 18; O2SAT 98
[2018-10-28 15:54] VITALS: BP 126/57; PULSE 71; RESP 18; TEMP 36.4; O2SAT 99
[2018-10-28] MEDS: Tamsulosin HCl 0.4 MG Capsule PO (17:19)
[2018-10-28 17:21] VITALS: BP 126/57; PULSE 71
[2018-10-28] MEDS: Atorvastatin Calcium 20 MG Tablet PO (21:47)
[2018-10-29] MEDS: Menthol/Lanolin/Calamine/Znox 113 GM Tube 1 APPLIC TOPICAL ×2 (05:35→05:38)
[2018-10-29] MEDS: Senna/Docusate Sodium 1 Tablet 2 TABLET PO ×2 (05:36→16:55)
[2018-10-29] MEDS: Polyethylene Glycol 3350 17 GM PACKET PO (05:36)
[2018-10-29] MEDS: Carbamide Peroxide 15 ML Bottle 5 DRP OTIC (05:36)
[2018-10-29 05:37] VITALS: BP 133/63; PULSE 80
[2018-10-29] MEDS: Furosemide 40 MG Tablet PO (05:37)
[2018-10-29] MEDS: Pantoprazole Sodium 40 MG Tablet PO (05:37)
[2018-10-29] MEDS: LINAGLIPTIN 5 MG TABLET PO (05:37)
[2018-10-29] MEDS: Metoprolol(XL)Succ 100 MG Tablet PO ×2 (05:37→16:56)
[2018-10-29] MEDS: Citalopram 10 MG Tablet PO (05:37)
[2018-10-29] MEDS: Doxazosin 4 MG Tablet PO (05:37)
[2018-10-29] MEDS: Pyridoxine HCl 100 MG Tablet PO (05:37)
[2018-10-29] MEDS: dilTIAZem CD 180 MG Capsule PO ×2 (05:38→16:56)
[2018-10-29] MEDS: Nystatin Powder 15gm Bottle 1 APPLIC TOPICAL ×3 (05:49→19:51)
[2018-10-29 06:50] LABS: Bedside Glucose 118 mg/dL (70-110)
[2018-10-29] MEDS: Iron Polysaccharide Complex 150 MG CAPSULE PO ×2 (08:00→16:55)
[2018-10-29] MEDS: Glimepiride 1 MG Tablet PO (08:00)
[2018-10-29] MEDS: Aspirin E.C. 81 MG Tablet PO (08:00)
[2018-10-29] MEDS: Multivitamins,Ther W-Minerals Tablet 1 TABLET PO ×2 (08:01→16:55)
[2018-10-29] MEDS: Allopurinol 100 MG Tablet PO (08:01)
[2018-10-29 15:44] VITALS: BP 142/66; PULSE 78; RESP 18; TEMP 36.7; O2SAT 97
--- NOTE | 2018-10-29 16:08 | CASEMGMT ---
Social Work Team recommending discharge at this time. PT continues to require Max Ax2 for bed mobility and dinah lift for transfers. SW met with pt in room to discuss d/c plans. Pt stating that he and have talked and pt would like to go to [facility]. Phone call placed to Abril at [facility] and VM left requesting return call with bed availability. SW will await return call. MAGGIE Yu
[2018-10-29] MEDS: Tamsulosin HCl 0.4 MG Capsule PO (16:55)
[2018-10-29 16:56] VITALS: BP 142/66; PULSE 78
[2018-10-29] MEDS: Atorvastatin Calcium 20 MG Tablet PO (19:49)
[2018-10-29 20:20] VITALS: PULSE 72; RESP 18; O2SAT 96
[2018-10-30] MEDS: Menthol/Lanolin/Calamine/Znox 113 GM Tube 1 APPLIC TOPICAL ×2 (05:30→21:26)
[2018-10-30] MEDS: dilTIAZem CD 180 MG Capsule PO ×2 (05:31→17:37)
[2018-10-30] MEDS: Doxazosin 4 MG Tablet PO (05:31)
[2018-10-30] MEDS: Citalopram 10 MG Tablet PO (05:31)
[2018-10-30] MEDS: Polyethylene Glycol 3350 17 GM PACKET PO (05:32)
[2018-10-30] MEDS: Furosemide 40 MG Tablet PO (05:32)
[2018-10-30 05:33] VITALS: BP 136/64; PULSE 69
[2018-10-30] MEDS: Senna/Docusate Sodium 1 Tablet 2 TABLET PO ×2 (05:33→17:37)
[2018-10-30] MEDS: Nystatin Powder 15gm Bottle 1 APPLIC TOPICAL ×3 (05:33→21:25)
[2018-10-30] MEDS: Pantoprazole Sodium 40 MG Tablet PO (05:33)
[2018-10-30] MEDS: Metoprolol(XL)Succ 100 MG Tablet PO ×2 (05:33→17:37)
[2018-10-30] MEDS: LINAGLIPTIN 5 MG TABLET PO (05:39)
[2018-10-30] MEDS: Pyridoxine HCl 100 MG Tablet PO (05:39)
[2018-10-30] MEDS: Acetaminophen 500 MG Tablet 1000 MG PO (05:39)
[2018-10-30] MEDS: 0.9% NaCl PICC Flush IV (05:40)
[2018-10-30 06:51] LABS: Bedside Glucose 130 mg/dL (70-110)
[2018-10-30] MEDS: Glimepiride 1 MG Tablet PO (08:13)
[2018-10-30] MEDS: Multivitamins,Ther W-Minerals Tablet 1 TABLET PO ×2 (08:13→17:37)
[2018-10-30] MEDS: Iron Polysaccharide Complex 150 MG CAPSULE PO ×2 (08:13→17:36)
[2018-10-30] MEDS: Aspirin E.C. 81 MG Tablet PO (08:13)
[2018-10-30] MEDS: Allopurinol 100 MG Tablet PO (08:13)
[2018-10-30 10:00] VITALS: PULSE 76; RESP 18; O2SAT 97
--- NOTE | 2018-10-30 11:10 | PCM.PN.RX ---
<Rojas Stewart D - Last Filed: 10/30/18 11:10> Progress Note - Pharmacy Subjective: TCU Followup Objective: Allergies Penicillins Allergy (Verified 09/19/18 14:28) Swelling Current Medications Generic Name Dose Route Start Last Admin Trade Name Freq PRN Reason Stop Dose Admin Acetaminophen 1,000 mg 09/19/18 16:12 10/30/18 05:39 Tylenol PO 1,000 mg Q6H PRN Administration MILD PAIN (1-3/10) Allopurinol 100 mg 09/20/18 08:00 10/30/18 08:13 Zyloprim PO 100 mg DAILY [facility] Administration Aspirin 81 mg 09/20/18 08:00 10/30/18 08:13 [facility] Atorvastatin Calcium 20 mg 09/19/18 22:00 10/29/18 19:49 Lipitor PO 20 mg QHS AISHA Administration Calamine/Phenol 1 applic 09/19/18 22:00 10/30/18 05:30 Calmoseptine Ointment TOPICAL 1 applicatio 0600,2200 AISHA Administration Protocol Cholecalciferol 1,000 unit 09/20/18 06:00 10/30/18 05:39 Vitamin D PO 1,000 unit DAILY [facility] Administration Citalopram Hydrobromide 10 mg 09/22/18 06:00 10/30/18 05:31 Celexa PO 10 mg DAILY [facility] Administration Cyanocobalamin 1,000 mcg 09/23/18 10:00 10/23/18 10:32 Vitamin B12 IM 1,000 mcg QMONTH [facility] Administration Cyclobenzaprine HCl 10 mg 09/19/18 15:36 10/25/18 01:40 Flexeril PO 10 mg TID PRN PRN Administration muscle spasms Diltiazem HCl 180 mg 09/19/18 18:00 10/30/18 05:31 Cardizem Cd PO 180 mg BID [facility] Administration Doxazosin Mesylate 4 mg 09/20/18 06:00 10/30/18 05:31 Cardura PO 4 mg DAILY [facility]IS[facility] Administration Furosemide 40 mg 10/02/18 06:00 10/30/18 05:32 Lasix PO 40 mg DAILY AISHA Administration Glimepiride 1 mg 09/20/18 08:00 10/30/18 08:13 Amaryl PO 1 mg DAILYCM [facility]ISHA Administration Heparin Sodium (Beef Lung) 50 units 09/19/18 22:35 IV UD PRN HEPARIN FLUSH Linagliptin 5 mg 09/20/18 06:00 10/30/18 05:39 Tradjenta PO 5 mg DAILY [facility] Administration Metoprolol Succinate 100 mg 09/19/18 18:00 10/30/18 05:33 Toprol Xl (Beta Thelma) PO 100 mg BID AIS[facility] Administration Multi-Ingredient Cream 1 applic 09/23/18 22:00 10/30/18 05:31 Eucerin TOPICAL 1 applicatio 0600,2200 [facility] Administration Protocol Multivitamins/Minerals 1 tablet 09/20/18 08:00 10/30/18 08:13 Multivitamin With Minerals PO 1 tablet BIDCM [facility] Administration Nitroglycerin 0.4 mg 09/19/18 15:36 Nitrostat SUBLINGUAL Q5M PRN chest pain Nystatin 1 applic 09/19/18 22:00 10/30/18 05:33 Mycostatin Powder TOPICAL 1 applicatio TID [facility] Administration Protocol Pantoprazole Sodium 40 mg 09/20/18 06:00 10/30/18 05:33 Protonix PO 40 mg DAILY [facility]IS[facility] Administration Polyethylene Glycol 17 gm 09/20/18 06:00 10/30/18 05:32 Miralax PO 17 gm DAILY [facility]ISHA Administration Polysaccharide Iron Complex 150 mg 09/20/18 08:00 10/30/18 08:13 Ferrex 150 PO 150 mg BIDCM [facility] Administration Potassium Chloride 40 meq 09/29/18 17:00 10/30/18 08:13 K-Dur PO 40 meq BIDCM [facility] Administration Pyridoxine HCl 100 mg 09/20/18 06:00 10/30/18 05:39 Vitamin B-6 PO 100 mg DAILY [facility] Administration Senna/Docusate Sodium 2 tablet 09/19/18 18:00 10/30/18 05:33 Senokot-S, Kandi-Colace PO 2 tablet BID [facility] Administration Sodium Chloride 10 - 20 ml 09/19/18 22:35 10/30/18 05:40 IV 10 ml UD PRN Administration PICC FLUSH Sodium Chloride 2 spray 09/27/18 10:03 10/24/18 22:11 [place] Nasal [place] NASAL 2 spray TID PRN PRN Administration NASAL DRYNESS Tamsulosin HCl 0.4 mg 09/24/18 17:00 10/29/18 16:55 Flomax PO 0.4 mg DAILY@1700 AISHA Administration Zinc Sulfate 220 mg 09/20/18 06:00 10/30/18 05:39 Zinc Sulfate PO 220 mg DAILY [facility] Administration Problem List Acute left [employer] stroke (Acute) Delirium (Acute) Retroperitoneal hemorrhage (Acute) VRE bacteremia (Acute) Acute blood loss anemia (Acute) Abnormal EKG (Acute) Atrial fibrillation (Chronic) Diabetes mellitus (Chronic) Hypertension (Chronic) Osteoarthritis (Chronic) Coronary artery disease (Acute) Gout (Chronic) Hyperlipidemia (Chronic) Lumbar spinal stenosis (Chronic) Myelodysplasia (myelodysplastic syndrome) (Chronic) Obstructive sleep apnea (Chronic) Cholelithiases (Chronic) Choledocholithiasis (Chronic) Vital Signs Temp Pulse Resp BP Pulse Ox 98.1 F 69 18 136/64 H 96 10/29/18 15:44 10/30/18 05:33 10/29/18 20:20 10/30/18 05:33 10/29/18 20:20 Oxygen Delivery Method Room Air Weight: 125.418 kg Body Mass Index (BMI) 35.9 Sodium 141 mmol/L (136-145) 10/25/18 04:57 Potassium 4.4 mmol/L (3.5-5.1) 10/25/18 04:57 Chloride 109 mmol/L (98-107) H 10/25/18 04:57 Carbon Dioxide 26.0 mmol/L (21.0-32.0) 10/25/18 04:57 Anion Gap 6 (5-15) 10/25/18 04:57 BUN 51 mg/dL (7-18) H 10/25/18 04:57 Creatinine 1.53 mg/dL (0.70-1.30) H 10/25/18 04:57 Est GFR (MDRD) Af Amer 58 mL/min (>60) L 10/25/18 04:57 Est GFR (MDRD) Non-Af 48 mL/min (>60) L 10/25/18 04:57 BUN/Creatinine Ratio 33.3 RATIO (10-20) H 10/25/18 04:57 Glucose 132 mg/dL (74-106) H 10/25/18 04:57 Assessment/Plan: 1) Pain APAP for mild pain, cyclobenzaprine for spasms. Continue to monitor prn medication use, daily pain scores. 2) CAD/HTN/HLD/AFib ASA, atorvastatin, diltiazem, furosemide,metoprolol, prn ntg. Continue to monitor BP/HR, renal function, electrolytes, prn medication use, s/s chest pain. * 3) BPH Doxazosin, tamsulosin. Continue to monitor BP, symptoms. * Patient with duplicate alpha-blocking therapy. Please consider dc one agent. 4) DM2 Glimepiride, linagliptin. Continue to monitor renal function, BGT, s/s hyper/hypoglycemia. 5) GI Pantoprazole. Continue to monitor s/s GI distress. 6) Gout Allopurinol. Continue to monitor s/s gout. 7) Nutrition B6, KCL, multivitamin, Fe, D, B12, Zn. Continue to monitor clinically. Psychotropic Medications: 8) Depression Citalopram. Continue to monitor s/s depression/anxiety. Unnecessary Medications: None Bowel Regimen: 9) Senna/s, PEG. Continue to monitor for constipation/diarrhea. Date of Note:: 10/30/18 - Provider Comments Provider responsibility: Provider responsible to enter orders to implement recommendations <Charly Ni Chi - Last Filed: 10/30/18 13:52> Progress Note - Pharmacy Subjective: [] Objective: Allergies Penicillins Allergy (Verified 09/19/18 14:28) Swelling Current Medications Generic Name Dose Route Start Last Admin Trade Name Freq PRN Reason Stop Dose Admin Acetaminophen 1,000 mg 09/19/18 16:12 10/30/18 05:39 Tylenol PO 1,000 mg Q6H PRN Administration MILD PAIN (1-3/10) Allopurinol 100 mg 09/20/18 08:00 10/30/18 08:13 Zyloprim PO 100 mg DAILYCM [facility]IS[facility] Administration Aspirin 81 mg 09/20/18 08:00 10/30/18 08:13 Ecotrin PO 81 mg DAILYCM [facility] Administration Atorvastatin Calcium 20 mg 09/19/18 22:00 10/29/18 19:49 Lipitor PO 20 mg QHS AISHA Administration Calamine/Phenol 1 applic 09/19/18 22:00 10/30/18 05:30 Calmoseptine Ointment TOPICAL 1 applicatio 0600,2200 [facility] Administration Protocol Cholecalciferol 1,000 unit 09/20/18 06:00 10/30/18 05:39 Vitamin D PO 1,000 unit DAILY [facility] Administration Citalopram Hydrobromide 10 mg 09/22/18 06:00 10/30/18 05:31 Celexa PO 10 mg DAILY [facility] Administration Cyanocobalamin 1,000 mcg 09/23/18 10:00 10/23/18 10:32 Vitamin B12 IM 1,000 mcg QMONTH AISHA Administration Cyclobenzaprine HCl 10 mg 09/19/18 15:36 10/25/18 01:40 Flexeril PO 10 mg TID PRN PRN Administration muscle spasms Diltiazem HCl 180 mg 09/19/18 18:00 10/30/18 05:31 Cardizem Cd PO 180 mg BID [facility] Administration Doxazosin Mesylate 4 mg 09/20/18 06:00 10/30/18 05:31 Cardura PO 4 mg DAILY [facility] Administration Furosemide 40 mg 10/02/18 06:00 10/30/18 05:32 Lasix PO 40 mg DAILY [facility] Administration Glimepiride 1 mg 09/20/18 08:00 10/30/18 08:13 Amaryl PO 1 mg DAILYCM [facility] Administration Heparin Sodium (Beef Lung) 50 units 09/19/18 22:35 IV UD PRN HEPARIN FLUSH Linagliptin 5 mg 09/20/18 06:00 10/30/18 05:39 Tradjenta PO 5 mg DAILY [facility] Administration Metoprolol Succinate 100 mg 09/19/18 18:00 10/30/18 05:33 Toprol Xl (Beta Thelma) PO 100 mg BID [facility] Administration Multi-Ingredient Cream 1 applic 09/23/18 22:00 10/30/18 05:31 Eucerin TOPICAL 1 applicatio 0600,2200 [facility] Administration Protocol Multivitamins/Minerals 1 tablet 09/20/18 08:00 10/30/18 08:13 Multivitamin With Minerals PO 1 tablet BIDCM [facility] Administration Nitroglycerin 0.4 mg 09/19/18 15:36 Nitrostat SUBLINGUAL Q5M PRN chest pain Nystatin 1 applic 09/19/18 22:00 10/30/18 13:15 Mycostatin Powder TOPICAL 1 applicatio TID [facility] Administration Protocol Pantoprazole Sodium 40 mg 09/20/18 06:00 10/30/18 05:33 Protonix PO 40 mg DAILY [facility] Administration Polyethylene Glycol 17 gm 09/20/18 06:00 10/30/18 05:32 Miralax PO 17 gm DAILY [facility] Administration Polysaccharide Iron Complex 150 mg 09/20/18 08:00 10/30/18 08:13 Ferrex 150 PO 150 mg BIDCM [facility] Administration Potassium Chloride 40 meq 09/29/18 17:00 10/30/18 08:13 K-Dur PO 40 meq BIDCM [facility] Administration Pyridoxine HCl 100 mg 09/20/18 06:00 10/30/18 05:39 Vitamin B-6 PO 100 mg DAILY [facility] Administration Senna/Docusate Sodium 2 tablet 09/19/18 18:00 10/30/18 05:33 Senokot-S, Kandi-Colace PO 2 tablet BID [facility] Administration Sodium Chloride 10 - 20 ml 09/19/18 22:35 10/30/18 05:40 IV 10 ml UD PRN Administration PICC FLUSH Sodium Chloride 2 spray 09/27/18 10:03 10/24/18 22:11 [place] Nasal [place] NASAL 2 spray TID PRN PRN Administration NASAL DRYNESS Tamsulosin HCl 0.4 mg 09/24/18 17:00 10/29/18 16:55 Flomax PO 0.4 mg DAILY@1700 [facility] Administration Zinc Sulfate 220 mg 09/20/18 06:00 10/30/18 05:39 Zinc Sulfate PO 220 mg DAILY AISHA Administration Problem List Acute left [employer] stroke (Acute) Delirium (Acute) Retroperitoneal hemorrhage (Acute) VRE bacteremia (Acute) Acute blood loss anemia (Acute) Abnormal EKG (Acute) Atrial fibrillation (Chronic) Diabetes mellitus (Chronic) Hypertension (Chronic) Osteoarthritis (Chronic) Coronary artery disease (Acute) Gout (Chronic) Hyperlipidemia (Chronic) Lumbar spinal stenosis (Chronic) Myelodysplasia (myelodysplastic syndrome) (Chronic) Obstructive sleep apnea (Chronic) Cholelithiases (Chronic) Choledocholithiasis (Chronic) Vital Signs Temp Pulse Resp BP Pulse Ox 98.1 F 76 18 136/64 H 97 10/29/18 15:44 10/30/18 10:00 10/30/18 10:00 10/30/18 05:33 10/30/18 10:00 Oxygen Delivery Method Room Air Weight: 125.418 kg Body Mass Index (BMI) 35.9 Sodium 141 mmol/L (136-145) 10/25/18 04:57 Potassium 4.4 mmol/L (3.5-5.1) 10/25/18 04:57 Chloride 109 mmol/L (98-107) H 10/25/18 04:57 Carbon Dioxide 26.0 mmol/L (21.0-32.0) 10/25/18 04:57 Anion Gap 6 (5-15) 10/25/18 04:57 BUN 51 mg/dL (7-18) H 10/25/18 04:57 Creatinine 1.53 mg/dL (0.70-1.30) H 10/25/18 04:57 Est GFR (MDRD) Af Amer 58 mL/min (>60) L 10/25/18 04:57 Est GFR (MDRD) Non-Af 48 mL/min (>60) L 10/25/18 04:57 BUN/Creatinine Ratio 33.3 RATIO (10-20) H 10/25/18 04:57 Glucose 132 mg/dL (74-106) H 10/25/18 04:57 Assessment/Plan: Psychotropic Medications: Unnecessary Medications: Bowel Regimen: - Provider Comments Provider responsibility: Provider responsible to enter orders to implement recommendations Provider Comments to Recommendations by Pharmacy: Agree
--- NOTE | 2018-10-30 11:13 | PHA.CONS_ITS ---
<Rojas Stewart D - Last Filed: 10/30/18 11:10> Progress Note - Pharmacy Subjective: TCU Followup Objective: Allergies Penicillins Allergy (Verified 09/19/18 14:28) Swelling Current Medications Generic Name Dose Route Start Last Admin Trade Name Freq PRN Reason Stop Dose Admin Acetaminophen 1,000 mg 09/19/18 16:12 10/30/18 05:39 Tylenol PO 1,000 mg Q6H PRN Administration MILD PAIN (1-3/10) Allopurinol 100 mg 09/20/18 08:00 10/30/18 08:13 Zyloprim PO 100 mg DAILY AISHA Administration Aspirin 81 mg 09/20/18 08:00 10/30/18 08:13 [facility] Atorvastatin Calcium 20 mg 09/19/18 22:00 10/29/18 19:49 Lipitor PO 20 mg QHS AISHA Administration Calamine/Phenol 1 applic 09/19/18 22:00 10/30/18 05:30 Calmoseptine Ointment TOPICAL 1 applicatio 0600,2200 AISHA Administration Protocol Cholecalciferol 1,000 unit 09/20/18 06:00 10/30/18 05:39 Vitamin D PO 1,000 unit DAILY AIS[facility] Administration Citalopram Hydrobromide 10 mg 09/22/18 06:00 10/30/18 05:31 Celexa PO 10 mg DAILY [facility] Administration Cyanocobalamin 1,000 mcg 09/23/18 10:00 10/23/18 10:32 Vitamin B12 IM 1,000 mcg QMONTH AISHA Administration Cyclobenzaprine HCl 10 mg 09/19/18 15:36 10/25/18 01:40 Flexeril PO 10 mg TID PRN PRN Administration muscle spasms Diltiazem HCl 180 mg 09/19/18 18:00 10/30/18 05:31 Cardizem Cd PO 180 mg BID [facility] Administration Doxazosin Mesylate 4 mg 09/20/18 06:00 10/30/18 05:31 Cardura PO 4 mg DAILY AISHA Administration Furosemide 40 mg 10/02/18 06:00 10/30/18 05:32 Lasix PO 40 mg DAILY AISHA Administration Glimepiride 1 mg 09/20/18 08:00 10/30/18 08:13 Amaryl PO 1 mg DAILYCM [facility] Administration Heparin Sodium (Beef Lung) 50 units 09/19/18 22:35 IV UD PRN HEPARIN FLUSH Linagliptin 5 mg 09/20/18 06:00 10/30/18 05:39 Tradjenta PO 5 mg DAILY [facility] Administration Metoprolol Succinate 100 mg 09/19/18 18:00 10/30/18 05:33 Toprol Xl (Beta Thelma) PO 100 mg BID [facility] Administration Multi-Ingredient Cream 1 applic 09/23/18 22:00 10/30/18 05:31 Eucerin TOPICAL 1 applicatio 0600,2200 [facility] Administration Protocol Multivitamins/Minerals 1 tablet 09/20/18 08:00 10/30/18 08:13 Multivitamin With Minerals PO 1 tablet BIDCM [facility] Administration Nitroglycerin 0.4 mg 09/19/18 15:36 Nitrostat SUBLINGUAL Q5M PRN chest pain Nystatin 1 applic 09/19/18 22:00 10/30/18 05:33 Mycostatin Powder TOPICAL 1 applicatio TID [facility] Administration Protocol Pantoprazole Sodium 40 mg 09/20/18 06:00 10/30/18 05:33 Protonix PO 40 mg DAILY [facility] Administration Polyethylene Glycol 17 gm 09/20/18 06:00 10/30/18 05:32 Miralax PO 17 gm DAILY [facility] Administration Polysaccharide Iron Complex 150 mg 09/20/18 08:00 10/30/18 08:13 Ferrex 150 PO 150 mg BIDCM [facility] Administration Potassium Chloride 40 meq 09/29/18 17:00 10/30/18 08:13 K-Dur PO 40 meq BIDCM [facility] Administration Pyridoxine HCl 100 mg 09/20/18 06:00 10/30/18 05:39 Vitamin B-6 PO 100 mg DAILY [facility] Administration Senna/Docusate Sodium 2 tablet 09/19/18 18:00 10/30/18 05:33 Senokot-S, Kandi-Colace PO 2 tablet BID [facility] Administration Sodium Chloride 10 - 20 ml 09/19/18 22:35 10/30/18 05:40 IV 10 ml UD PRN Administration PICC FLUSH Sodium Chloride 2 spray 09/27/18 10:03 10/24/18 22:11 [place] Nasal [place] NASAL 2 spray TID PRN PRN Administration NASAL DRYNESS Tamsulosin HCl 0.4 mg 09/24/18 17:00 10/29/18 16:55 Flomax PO 0.4 mg DAILY@1700 [facility] Administration Zinc Sulfate 220 mg 09/20/18 06:00 10/30/18 05:39 Zinc Sulfate PO 220 mg DAILY [facility] Administration Problem List Acute left [employer] stroke (Acute) Delirium (Acute) Retroperitoneal hemorrhage (Acute) VRE bacteremia (Acute) Acute blood loss anemia (Acute) Abnormal EKG (Acute) Atrial fibrillation (Chronic) Diabetes mellitus (Chronic) Hypertension (Chronic) Osteoarthritis (Chronic) Coronary artery disease (Acute) Gout (Chronic) Hyperlipidemia (Chronic) Lumbar spinal stenosis (Chronic) Myelodysplasia (myelodysplastic syndrome) (Chronic) Obstructive sleep apnea (Chronic) Cholelithiases (Chronic) Choledocholithiasis (Chronic) Vital Signs Temp Pulse Resp BP Pulse Ox 98.1 F 69 18 136/64 H 96 10/29/18 15:44 10/30/18 05:33 10/29/18 20:20 10/30/18 05:33 10/29/18 20:20 Oxygen Delivery Method Room Air Weight: 125.418 kg Body Mass Index (BMI) 35.9 Sodium 141 mmol/L (136-145) 10/25/18 04:57 Potassium 4.4 mmol/L (3.5-5.1) 10/25/18 04:57 Chloride 109 mmol/L (98-107) H 10/25/18 04:57 Carbon Dioxide 26.0 mmol/L (21.0-32.0) 10/25/18 04:57 Anion Gap 6 (5-15) 10/25/18 04:57 BUN 51 mg/dL (7-18) H 10/25/18 04:57 Creatinine 1.53 mg/dL (0.70-1.30) H 10/25/18 04:57 Est GFR (MDRD) Af Amer 58 mL/min (>60) L 10/25/18 04:57 Est GFR (MDRD) Non-Af 48 mL/min (>60) L 10/25/18 04:57 BUN/Creatinine Ratio 33.3 RATIO (10-20) H 10/25/18 04:57 Glucose 132 mg/dL (74-106) H 10/25/18 04:57 Assessment/Plan: 1) Pain APAP for mild pain, cyclobenzaprine for spasms. Continue to monitor prn medic ation use, daily pain scores. 2) CAD/HTN/HLD/AFib ASA, atorvastatin, diltiazem, furosemide,metoprolol, prn ntg. Continue to monitor BP/HR, renal function, electrolytes, prn medication use, s/s chest pain. * 3) BPH Doxazosin, tamsulosin. Continue to monitor BP, symptoms. * Patient with duplicate alpha-blocking therapy. Please consider dc one agent. 4) DM2 Glimepiride, linagliptin. Continue to monitor renal function, BGT, s/s hyper/hypoglycemia. 5) GI Pantoprazole. Continue to monitor s/s GI distress. 6) Gout Allopurinol. Continue to monitor s/s gout. 7) Nutrition B6, KCL, multivitamin, Fe, D, B12, Zn. Continue to monitor clinically. Psychotropic Medications: 8) Depression Citalopram. Continue to monitor s/s depression/anxiety. Unnecessary Medications: None Bowel Regimen: 9) Senna/s, PEG. Continue to monitor for constipation/diarrhea. Date of Note:: 10/30/18 - Provider Comments Provider responsibility: Provider responsible to enter orders to implement recommendations <Charly Ni Chi - Last Filed: 10/30/18 13:52> Progress Note - Pharmacy Subjective: [] Objective: Allergies Penicillins Allergy (Verified 09/19/18 14:28) Swelling Current Medications Generic Name Dose Route Start Last Admin Trade Name Freq PRN Reason Stop Dose Admin Acetaminophen 1,000 mg 09/19/18 16:12 10/30/18 05:39 Tylenol PO 1,000 mg Q6H PRN Administration MILD PAIN (1-3/10) Allopurinol 100 mg 09/20/18 08:00 10/30/18 08:13 Zyloprim PO 100 mg DAILYCM [facility] Administration Aspirin 81 mg 09/20/18 08:00 10/30/18 08:13 Ecotrin PO 81 mg DAILYCM [facility] Administration Atorvastatin Calcium 20 mg 09/19/18 22:00 10/29/18 19:49 Lipitor PO 20 mg QHS AISHA Administration Calamine/Phenol 1 applic 09/19/18 22:00 10/30/18 05:30 Calmoseptine Ointment TOPICAL 1 applicatio 0600,2200 [facility] Administration Protocol Cholecalciferol 1,000 unit 09/20/18 06:00 10/30/18 05:39 Vitamin D PO 1,000 unit DAILY [facility] Administration Citalopram Hydrobromide 10 mg 09/22/18 06:00 10/30/18 05:31 Celexa PO 10 mg DAILY [facility] Administration Cyanocobalamin 1,000 mcg 09/23/18 10:00 10/23/18 10:32 Vitamin B12 IM 1,000 mcg QMONTH [facility] Administration Cyclobenzaprine HCl 10 mg 09/19/18 15:36 10/25/18 01:40 Flexeril PO 10 mg TID PRN PRN Administration muscle spasms Diltiazem HCl 180 mg 09/19/18 18:00 10/30/18 05:31 Cardizem Cd PO 180 mg BID [facility] Administration Doxazosin Mesylate 4 mg 09/20/18 06:00 10/30/18 05:31 Cardura PO 4 mg DAILY [facility] Administration Furosemide 40 mg 10/02/18 06:00 10/30/18 05:32 Lasix PO 40 mg DAILY [facility] Administration Glimepiride 1 mg 09/20/18 08:00 10/30/18 08:13 Amaryl PO 1 mg DAILYCM [facility] Administration Heparin Sodium (Beef Lung) 50 units 09/19/18 22:35 IV UD PRN HEPARIN FLUSH Linagliptin 5 mg 09/20/18 06:00 10/30/18 05:39 Tradjenta PO 5 mg DAILY [facility] Administration Metoprolol Succinate 100 mg 09/19/18 18:00 10/30/18 05:33 Toprol Xl (Beta Thelma) PO 100 mg BID [facility] Administration Multi-Ingredient Cream 1 applic 09/23/18 22:00 10/30/18 05:31 Eucerin TOPICAL 1 applicatio 0600,2200 [facility] Administration Protocol Multivitamins/Minerals 1 tablet 09/20/18 08:00 10/30/18 08:13 Multivitamin With Minerals PO 1 tablet BIDCM [facility] Administration Nitroglycerin 0.4 mg 09/19/18 15:36 Nitrostat SUBLINGUAL Q5M PRN chest pain Nystatin 1 applic 09/19/18 22:00 10/30/18 13:15 Mycostatin Powder TOPICAL 1 applicatio TID [facility] Administration Protocol Pantoprazole Sodium 40 mg 09/20/18 06:00 10/30/18 05:33 Protonix PO 40 mg DAILY [facility] Administration Polyethylene Glycol 17 gm 09/20/18 06:00 10/30/18 05:32 Miralax PO 17 gm DAILY [facility] Administration Polysaccharide Iron Complex 150 mg 09/20/18 08:00 10/30/18 08:13 Ferrex 150 PO 150 mg BIDCM [facility] Administration Potassium Chloride 40 meq 09/29/18 17:00 10/30/18 08:13 K-Dur PO 40 meq BIDCM [facility] Administration Pyridoxine HCl 100 mg 09/20/18 06:00 10/30/18 05:39 Vitamin B-6 PO 100 mg DAILY [facility] Administration Senna/Docusate Sodium 2 tablet 09/19/18 18:00 10/30/18 05:33 Senokot-S, Kandi-Colace PO 2 tablet BID [facility] Administration Sodium Chloride 10 - 20 ml 09/19/18 22:35 10/30/18 05:40 IV 10 ml UD PRN Administration PICC FLUSH Sodium Chloride 2 spray 09/27/18 10:03 10/24/18 22:11 Tomas De Castro Nasal [place] NASAL 2 spray TID PRN PRN Administration NASAL DRYNESS Tamsulosin HCl 0.4 mg 09/24/18 17:00 10/29/18 16:55 Flomax PO 0.4 mg DAILY@1700 [facility] Administration Zinc Sulfate 220 mg 09/20/18 06:00 10/30/18 05:39 Zinc Sulfate PO 220 mg DAILY [facility] Administration Problem List Acute left [employer] stroke (Acute) Delirium (Acute) Retroperitoneal hemorrhage (Acute) VRE bacteremia (Acute) Acute blood loss anemia (Acute) Abnormal EKG (Acute) Atrial fibrillation (Chronic) Diabetes mellitus (Chronic) Hypertension (Chronic) Osteoarthritis (Chronic) Coronary artery disease (Acute) Gout (Chronic) Hyperlipidemia (Chronic) Lumbar spinal stenosis (Chronic) Myelodysplasia (myelodysplastic syndrome) (Chronic) Obstructive sleep apnea (Chronic) Cholelithiases (Chronic) Choledocholithiasis (Chronic) Vital Signs Temp Pulse Resp BP Pulse Ox 98.1 F 76 18 136/64 H 97 10/29/18 15:44 10/30/18 10:00 10/30/18 10:00 10/30/18 05:33 10/30/18 10:00 Oxygen Delivery Method Room Air Weight: 125.418 kg Body Mass Index (BMI) 35.9 Sodium 141 mmol/L (136-145) 10/25/18 04:57 Potassium 4.4 mmol/L (3.5-5.1) 10/25/18 04:57 Chloride 109 mmol/L (98-107) H 10/25/18 04:57 Carbon Dioxide 26.0 mmol/L (21.0-32.0) 10/25/18 04:57 Anion Gap 6 (5-15) 10/25/18 04:57 BUN 51 mg/dL (7-18) H 10/25/18 04:57 Creatinine 1.53 mg/dL (0.70-1.30) H 10/25/18 04:57 Est GFR (MDRD) Af Amer 58 mL/min (>60) L 10/25/18 04:57 Est GFR (MDRD) Non-Af 48 mL/min (>60) L 10/25/18 04:57 BUN/Creatinine Ratio 33.3 RATIO (10-20) H 10/25/18 04:57 Glucose 132 mg/dL (74-106) H 10/25/18 04:57 Assessment/Plan: Psychotropic Medications: Unnecessary Medications: Bowel Regimen: - Provider Comments Provider responsibility: Provider responsible to enter orders to implement recommendations Provider Comments to Recommendations by Pharmacy: Agree
--- NOTE | 2018-10-30 12:01 | CASEMGMT ---
BIMS and PHQ9 interviews completed on this date for MDS assessment. MAGGIE Yu
--- NOTE | 2018-10-30 12:46 | CASEMGMT ---
Addendum entered by Bri Culp 10/30/18 15:32: Social Work Erin from [facility] in facility to visit with pt. SW spoke with Erin and they are able to accept pt. D/C planned for 11/04. SW met with pt and he is agreeable to this. With pt permission, phone call to pt and she is notified of this as well. Plan: D/C 11/04/18 to [facility] level of care. MAGGIE Yu Original Note: Social Work Phone call to Abril at [facility] and they currently do not have any beds available. CECI met with pt and informed of this. Second choice is [facility]. Phone call to Carmel at [facility]. They do have one bed opening next Friday. Referral faxed and will await determination if they can accept pt. Pt informed. Pt on phone with and notifying her. Plan: D/C 11/04/18 to [facility], Pending acceptance MAGGIE Yu
--- NOTE | 2018-10-30 14:47 | TREXTCAR_ITS ---
- Diet 10/18/18 08:36 Diet: Regular Diet Is pt able to select menu?: Yes Diet Comments: low Na, Supervised, BUILT UP UTENSILS - Routine Orders/Code Status Suppository Type: Dulcolax 10mg Suppository Frequency: Daily PRN Routine Lab Work: CBC, BMP Code Status: Full Code - Wound(s) R great toe Wound Type: ulcer r posterior calf Wound Type: Abrasion R turner Wound Type: Abrasion L turner Wound Type: Abrasion L posterior knee Wound Type: Abrasion R lateral buttock Wound Type: Pressure Injury R buttock Wound Type: healed pressure injury Dressing Change: MEPILEX,09/20/18 FORE SKIN Wound Type: sore RIGHT UPPER BUTTOCK Wound Type: Abrasion upper post lt thigh Wound Type: blood blisters x2 - Therapies Weight Bearing: Weight bearing as tolerated Extremity Affected:: Bilateral Lower Physical Therapy: Eval and Treat Occupational Therapy: Eval and Treat - Problem/Diagnosis (1) 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 Status: Acute Current Visit: Yes (2) Delirium Status: Acute Current Visit: Yes (3) Retroperitoneal hemorrhage Status: Acute Current Visit: Yes (4) VRE bacteremia Status: Acute Current Visit: Yes (5) Acute blood loss anemia Status: Acute Current Visit: Yes (6) Abnormal EKG Status: Acute Current Visit: Yes (7) Atrial fibrillation Status: Chronic Current Visit: Yes (8) Diabetes mellitus Status: Chronic Current Visit: Yes (9) Hypertension Status: Chronic Current Visit: Yes (10) Osteoarthritis Status: Chronic Current Visit: Yes (11) Coronary artery disease Status: Acute Current Visit: Yes (12) Gout Status: Chronic Current Visit: Yes (13) Hyperlipidemia Status: Chronic Current Visit: Yes (14) Lumbar spinal stenosis Status: Chronic Current Visit: Yes (15) Myelodysplasia (myelodysplastic syndrome) Status: Chronic Current Visit: Yes (16) Obstructive sleep apnea Status: Chronic Current Visit: Yes (17) Cholelithiases Status: Chronic Current Visit: Yes (18) Choledocholithiasis Status: Chronic Current Visit: Yes - Allergies/Procedures Done in Hospital Allergies/Adverse Reactions: Allergies Penicillins Allergy (Verified 09/19/18 14:28) Swelling - Type of Care/Length of Stay Estimated LOS: Convalescent Care Less Than 30 days Type of Care Needed: Skilled Rehab Potential: Fair Prognosis: Fair - Additional Orders/Day of Discharge Day of Discharge: 11/04/18 - Dietary and Speech Recommendations Dietitian Recommendations/Changes: Rec cont regular, low salt diet with consistency per VISUAL DISPLAY MANAGER as indicated. - Follow Up Care Please follow up with your Primary Care Physician in: 1 week Please Follow Up With: Jonatan Voss MD When: as needed for hemorrhoids Please Follow Up With: Nito Butler DO When: f/u with discharge Please Follow Up With: Juan Damico MD (electric motor tester assembler) When: will call for one month appt
--- NOTE | 2018-10-30 14:47 | PCM.DC.SUM ---
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) Delirium (Acute) Retroperitoneal hemorrhage (Acute) VRE bacteremia (Acute) Acute blood loss anemia (Acute) Abnormal EKG (Acute) Coronary artery disease (Acute) - Secondary Discharge Diagnosis Chronic Problems Atrial fibrillation (Chronic) Diabetes mellitus (Chronic) Hypertension (Chronic) Osteoarthritis (Chronic) Gout (Chronic) Hyperlipidemia (Chronic) Lumbar spinal stenosis (Chronic) Myelodysplasia (myelodysplastic syndrome) (Chronic) Obstructive sleep apnea (Chronic) Cholelithiases (Chronic) Choledocholithiasis (Chronic) Hospital Course and Treatment Imaging Results: 10/18/18 08:36 Diet: Regular Diet Is pt able to select menu?: Yes Diet Comments: low Na, Supervised, BUILT UP UTENSILS Clinical Impression(s) from Imaging Studies KUB X-Ray 09/21/18 13:15 IMPRESSION: No acute findings, constipation Electronically Signed: Gutierrez Cullen MD at 16:59 EDT , Service support , Gallbladder Ultrasound 10/18/18 08:00 IMPRESSION: Liver is enlarged. Fatty infiltration of the liver. Gallbladder sludge. Gallbladder wall thickening. Question right renal cyst. 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 Discharge to [facility], Skilled for PT/OT. 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) Delirium (Acute) Retroperitoneal hemorrhage (Acute) VRE bacteremia (Acute) Acute blood loss anemia (Acute) Abnormal EKG (Acute) Coronary artery disease (Acute) - Physical Exam Vital Signs Temp Pulse Resp BP Pulse Ox 98.1 F 76 18 136/64 H 97 10/29/18 15:44 10/30/18 10:00 10/30/18 10:00 10/30/18 05:33 10/30/18 10:00 Oxygen Delivery Method Room Air Weight: 125.418 kg Body Mass Index (BMI) 35.9 Intake and Output for Last 24 Hours 10/28/18 10/29/18 10/30/18 23:59 23:59 23:59 Intake Total 1440 / 1440 1320 / 1320 1140 / 1140 Balance 1440 / 1440 1320 / 1320 1140 / 1140 POC Glucose 10/30/18 06:37 POC Glucose 130 H Discharge Diet: No Restrictions Discharge Activity: Return to Normal Activity, May Shower, Use Walker Weight Bearing Status: Weight bearing as tolerated Call your doctor if you observe: Fever of 101 or Higher, Inability to urinate, Inability to have a bowel movement, Shortness of breath, Chest pain, Uncontrolled pain Home Medications: Medications to take at Discharge Allopurinol 100 mg PO DAILY 09/19/18 Aspirin [Aspirin EC] 81 mg PO DAILY 09/19/18 Atorvastatin Calcium [Lipitor] 20 mg PO QHS 09/19/18 Cholecalciferol (VIT D3) [Vitamin D3] 1,000 unit PO DAILY 09/19/18 Cyanocobalamin (Vitamin B-12) [Cyanocobalamin Injection] 1,000 mcg IJ MO 09/19/18 Diltiazem HCl [Diltiazem 24Hr ER (Cd)] 180 mg PO BID 09/19/18 Furosemide 60 mg PO DAILY 09/19/18 Glimepiride [Amaryl] 1 mg PO DAILY 09/19/18 Iron Ps Complex/B12/Folic Acid [Ferrex 150 Forte Capsule] 1 cap PO BID 09/19/18 Metoprolol Succinate [Toprol Xl] 100 mg PO BID 09/19/18 Multivit,Calc,Mins/Folic Acid [One-A-Day Proactive 65 Plus Tb] 1 tablet PO BID 09/19/18 Nitroglycerin 0.4 mg SL Q10M PRN 09/19/18 Omeprazole 40 mg PO DAILY 09/19/18 Pyridoxine HCl [Vitamin B-6] 100 mg PO DAILY 09/19/18 Sitagliptin Phosphate [Januvia] 50 mg PO DAILY 09/19/18 Zinc Sulfate (50mg elemental) [Zinc Sulfate] 220 mg PO DAILY 09/19/18 cycloBENZAPRine HCl [Flexeril] 10 mg PO TID PRN PRN 09/19/18 Acetaminophen [Tylenol] 1,000 mg PO Q6H PRN tablet 10/30/18 Citalopram [Celexa] 10 mg PO DAILY tablet 10/30/18 Menthol/Lanolin/Calamine/Znox [Calmoseptine Ointment] 1 applic TOPICAL 0600,2200 tube 10/30/18 Mineral Oil/Petrolatum,White [Eucerin] 1 applic TOPICAL 0600,2200 jar 10/30/18 Nystatin Powder [Mycostatin Powder] 1 applic TOPICAL TID bottle 10/30/18 Polyethylene Glycol 3350 [Miralax] 17 gm PO DAILY packet 10/30/18 Potassium Chloride [K-Dur] 40 meq PO BIDCM tablet 10/30/18 Senna/Docusate Sodium [Senokot-S] 2 tablet PO BID tablet 10/30/18 Sodium Chloride 0.65% [Gage Nasal [place]] 2 spray NASAL TID PRN PRN spray.btl 10/30/18 Tamsulosin HCl [Flomax] 0.4 mg PO DAILY@1700 capsule 10/30/18 Please follow up with your Primary Care Physician in: 1 week Please Follow Up With: Jonatan Voss MD When: as needed for hemorrhoids Please Follow Up With: Nito Butler DO When: f/u with discharge Please Follow Up With: Juan Damico MD (production line mechanic) When: will call for one month appt Disposition: Jail facility Minutes spent on discharge:: 30 Patient Condition:: Stable Medical Necessity - Tobacco Use Smoking Status: Former smoker Tobacco Use: Non-smoker Meaningful Use Info Meaningful Use Diagnoses (Choose all that apply): None applicable
[2018-10-30 16:00] VITALS: BP 136/70; PULSE 76; RESP 20; TEMP 36.3; O2SAT 95
[2018-10-30] MEDS: Tamsulosin HCl 0.4 MG Capsule PO (17:36)
[2018-10-30 17:37] VITALS: BP 136/70; PULSE 76
[2018-10-30] MEDS: Atorvastatin Calcium 20 MG Tablet PO (21:25)
[2018-10-31 05:34] VITALS: BP 122/60; PULSE 65
[2018-10-31] MEDS: Pantoprazole Sodium 40 MG Tablet PO (05:34)
[2018-10-31] MEDS: Polyethylene Glycol 3350 17 GM PACKET PO (05:34)
[2018-10-31] MEDS: Metoprolol(XL)Succ 100 MG Tablet PO ×2 (05:34→17:49)
[2018-10-31] MEDS: Citalopram 10 MG Tablet PO (05:35)
[2018-10-31] MEDS: Furosemide 40 MG Tablet PO (05:35)
[2018-10-31] MEDS: Senna/Docusate Sodium 1 Tablet 2 TABLET PO ×2 (05:35→17:48)
[2018-10-31] MEDS: LINAGLIPTIN 5 MG TABLET PO (05:35)
[2018-10-31] MEDS: Menthol/Lanolin/Calamine/Znox 113 GM Tube 1 APPLIC TOPICAL ×2 (05:35→20:27)
[2018-10-31] MEDS: dilTIAZem CD 180 MG Capsule PO ×2 (05:35→17:48)
[2018-10-31] MEDS: Pyridoxine HCl 100 MG Tablet PO (05:36)
[2018-10-31] MEDS: Nystatin Powder 15gm Bottle 1 APPLIC TOPICAL ×3 (05:36→20:26)
[2018-10-31 06:31] LABS: Bedside Glucose 135 mg/dL (70-110)
[2018-10-31] MEDS: Aspirin E.C. 81 MG Tablet PO (08:28)
[2018-10-31] MEDS: Multivitamins,Ther W-Minerals Tablet 1 TABLET PO ×2 (08:28→17:48)
[2018-10-31] MEDS: Iron Polysaccharide Complex 150 MG CAPSULE PO ×2 (08:28→17:48)
[2018-10-31] MEDS: Allopurinol 100 MG Tablet PO (08:28)
[2018-10-31] MEDS: Glimepiride 1 MG Tablet PO (08:28)
[2018-10-31 15:51] VITALS: BP 137/84; PULSE 83; RESP 20; TEMP 36.6; O2SAT 95
[2018-10-31] MEDS: Tamsulosin HCl 0.4 MG Capsule PO (17:48)
[2018-10-31] MEDS: Sodium Chloride 0.65% 1 SPRAY SPRAY.BTL 2 SPRAY NASAL (17:48)
[2018-10-31 17:49] VITALS: BP 137/84; PULSE 83
[2018-10-31] MEDS: Atorvastatin Calcium 20 MG Tablet PO (20:28)
[2018-10-31 20:35] VITALS: PULSE 65; RESP 18; O2SAT 95
[2018-11-01] MEDS: Furosemide 40 MG Tablet PO (05:12)
[2018-11-01] MEDS: Pyridoxine HCl 100 MG Tablet PO (05:12)
[2018-11-01] MEDS: Polyethylene Glycol 3350 17 GM PACKET PO (05:12)
[2018-11-01] MEDS: LINAGLIPTIN 5 MG TABLET PO (05:13)
[2018-11-01] MEDS: Pantoprazole Sodium 40 MG Tablet PO (05:13)
[2018-11-01] MEDS: dilTIAZem CD 180 MG Capsule PO ×2 (05:13→17:09)
[2018-11-01] MEDS: Citalopram 10 MG Tablet PO (05:13)
[2018-11-01] MEDS: Senna/Docusate Sodium 1 Tablet 2 TABLET PO ×2 (05:13→17:09)
[2018-11-01] MEDS: Nystatin Powder 15gm Bottle 1 APPLIC TOPICAL ×3 (05:17→21:50)
[2018-11-01 05:18] VITALS: BP 138/71; PULSE 75
[2018-11-01] MEDS: Metoprolol(XL)Succ 100 MG Tablet PO ×2 (05:18→17:09)
[2018-11-01] MEDS: Menthol/Lanolin/Calamine/Znox 113 GM Tube 1 APPLIC TOPICAL ×2 (05:21→21:51)
[2018-11-01 06:31] LABS: Bedside Glucose 136 mg/dL (70-110)
[2018-11-01] MEDS: Multivitamins,Ther W-Minerals Tablet 1 TABLET PO ×2 (08:03→17:09)
[2018-11-01] MEDS: Aspirin E.C. 81 MG Tablet PO (08:03)
[2018-11-01] MEDS: Allopurinol 100 MG Tablet PO (08:03)
[2018-11-01] MEDS: Iron Polysaccharide Complex 150 MG CAPSULE PO ×2 (08:03→17:09)
[2018-11-01] MEDS: Glimepiride 1 MG Tablet PO (08:03)
[2018-11-01 08:39] LABS: Absolute Lymphocyte Count 0.59 X10^3/ul (0.83-4.51); Absolute Neutrophil Count 5.9 X10^3/uL (2.0-7.7); Basophil# 0.02 X10^3/uL; Basophil% 0.3 % (0-1); Eosinophil# 0.31 X10^3/uL; Eosinophils% 4.3 % (0-5); Hematocrit 26.3 % (40-54); Hemoglobin 8.5 g/dl (13.0-16.5); Lymphocyte # 0.59 X10^3/ul (4.0); Lymphocyte % 8.2 % (19-41); Mean Corp Hgb Conc 32.3 g/gl (32-36); Mean Corpuscular Hgb 32.3 pg (27.0-32.0); Monocyte# 0.39 X10^3/uL; Monocyte% 5.4 % (0-10); Neutrophil # 5.85 X10^3/uL (2.7-7.7); Neutrophil % 81.5 % (47-70); Platelet Count 89 K/mm3 (150-450); RBC Distribution Width CV 17.8 % (11.6-14.6); RBC Distribution Width SD 65.5 fl (35.1-43.9); Red Blood Count 2.63 M/mm3 (4.6-6.2); White Blood Count 7.2 K/mm3 (4.4-11.0)
[2018-11-01 08:42] LABS: Differential Indicated SCAN CRITERIA MET; POSITIVE COUNT NO; POSITIVE DIFFERENTIAL YES; POSITIVE MORPHOLOGY YES
[2018-11-01 08:58] LABS: Anisocytosis 1+; Hypochromasia 1+; Macrocytosis 1+
[2018-11-01 09:11] LABS: Anion Gap 6 (5-15); BUN 41 mg/dL (7-18); BUN/Creat Ratio 27.5 RATIO (10-20); Calcium,Total 8.9 mg/dL (8.5-10.1); Chloride 106 mmol/L (98-107); Creatinine, Serum 1.49 mg/dL (0.70-1.30); EST Glomerular Filtration Rate 49 mL/min (>60); Est Glom Filt Rate - Afr Amer 59 mL/min (>60); Estimated Creatinine Clearance 52.77 ml/min; Glucose 155 mg/dL (74-106); Potassium 4.2 mmol/L (3.5-5.1); Sodium Level 138 mmol/L (136-145)
[2018-11-01 10:50] VITALS: PULSE 68; RESP 18; O2SAT 99
[2018-11-01 14:07] VITALS: BP 127/64; PULSE 74; RESP 20; TEMP 36.7; O2SAT 97
[2018-11-01 17:09] VITALS: BP 127/64; PULSE 74
[2018-11-01] MEDS: Tamsulosin HCl 0.4 MG Capsule PO (17:09)
[2018-11-01] MEDS: Atorvastatin Calcium 20 MG Tablet PO (21:49)
[2018-11-02] MEDS: Nystatin Powder 15gm Bottle 1 APPLIC TOPICAL ×3 (05:20→21:09)
[2018-11-02] MEDS: Menthol/Lanolin/Calamine/Znox 113 GM Tube 1 APPLIC TOPICAL ×2 (05:20→21:10)
[2018-11-02] MEDS: Senna/Docusate Sodium 1 Tablet 2 TABLET PO ×2 (05:21→18:41)
[2018-11-02] MEDS: LINAGLIPTIN 5 MG TABLET PO (05:21)
[2018-11-02] MEDS: Furosemide 40 MG Tablet PO (05:21)
[2018-11-02] MEDS: Pyridoxine HCl 100 MG Tablet PO (05:21)
[2018-11-02] MEDS: dilTIAZem CD 180 MG Capsule PO ×2 (05:21→18:41)
[2018-11-02 05:22] VITALS: BP 130/65; PULSE 88
[2018-11-02] MEDS: Pantoprazole Sodium 40 MG Tablet PO (05:22)
[2018-11-02] MEDS: Citalopram 10 MG Tablet PO (05:22)
[2018-11-02] MEDS: Metoprolol(XL)Succ 100 MG Tablet PO ×2 (05:22→18:40)
[2018-11-02 06:31] LABS: Bedside Glucose 123 mg/dL (70-110)
[2018-11-02] MEDS: Allopurinol 100 MG Tablet PO (08:42)
[2018-11-02] MEDS: Aspirin E.C. 81 MG Tablet PO (08:42)
[2018-11-02] MEDS: Iron Polysaccharide Complex 150 MG CAPSULE PO ×2 (08:42→18:40)
[2018-11-02] MEDS: Glimepiride 1 MG Tablet PO (08:42)
[2018-11-02] MEDS: Multivitamins,Ther W-Minerals Tablet 1 TABLET PO ×2 (09:29→18:40)
--- NOTE | 2018-11-02 09:55 | NURSING ---
Addendum entered by Dionne Martinez 11/02/18 15:44: Frequent checks made by this nurse throughout the shift. Pt states he feels better than he did this AM. Bob GARVEY aware. Original Note: PESTICIDE USE MEDICAL COORDINATOR stated pt had c/o dizziness. This nurse and Maye ROSSN to assess pt. VS- BP 149/79, P 70-88, T 97.3, SpO2 97% on RA. Pt stated he started feeling light-headed and dizzy after being turned to his side in bed. Pt also stated he was feeling nauseous. Bob GARVEY made aware and in to assess pt. Will continue to monitor.
[2018-11-02] MEDS: 0.9% Normal Saline 1,000 ML 999 ML IV (12:52)
[2018-11-02 15:22] VITALS: BP 142/67; PULSE 91; RESP 18; TEMP 36.6; O2SAT 99
--- NOTE | 2018-11-02 16:11 | NURSING ---
PROJECT SURVEYOR asked this nurse to observe pt's urine in bedpan. Urine cloudy with sediment noted. Bob RN made aware by this nurse and observed urine. Will continue to monitor.
--- NOTE | 2018-11-02 16:24 | NURSING ---
Pt c/o feeling dizzy again after being rolled over in bed. Also c/o having pressure in RUQ. VS- BP 151/68, P 86, R 20, T 98.3, Spo2 100% on RA. Bob GARVEY made aware.
--- NOTE | 2018-11-02 18:15 | PCM.PROGNOTE ---
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 He is having abdominal discomfort at this time and defers evaluation and treatment. He relates he missed his toenail trimming appointment in [place] and feels his toenail is poking into his skin. He was not amendable to proceed today and I have offered to return later this week when and if he is interested. [facility] for reconsultation if appropriate when he is ready; [phone]. - Physical Exam Vital Signs Temp Pulse Resp BP Pulse Ox 97.9 F 91 18 142/67 H 99 11/02/18 15:22 11/02/18 15:22 11/02/18 15:22 11/02/18 15:22 11/02/18 15:22 Oxygen Delivery Method Room Air Weight: 123.604 kg Body Mass Index (BMI) 35.9 Intake and Output for Last 24 Hours 10/31/18 11/01/18 11/02/18 23:59 23:59 23:59 Intake Total 1200 / 1200 1200 / 1200 240 / 240 Output Total 275 / 275 650 / 650 Balance 1200 / 1200 925 / 925 -410 / -410 POC Glucose 11/02/18 06:18 POC Glucose 123 H Medical Necessity - Tobacco Use Smoking Status: Former smoker Tobacco Use: Non-smoker Assessment/Plan All Active Problems 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
--- NOTE | 2018-11-02 18:23 | PN_ITS ---
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 He is hav ing abdominal discomfort at this time and defers evaluation and treatment. He relates he missed his toenail trimming appointment in [place] and feels his toenail is poking into his skin. He was not amendable to proceed today and I have offered to return later this week when and if he is interested. [facility] for reconsultation if appropriate when he is ready; [phone]. - Physical Exam Vital Signs Temp Pulse Resp BP Pulse Ox 97.9 F 91 18 142/67 H 99 11/02/18 15:22 11/02/18 15:22 11/02/18 15:22 11/02/18 15:22 11/02/18 15:22 Oxygen Delivery Method Room Air Weight: 123.604 kg Body Mass Index (BMI) 35.9 Intake and Output for Last 24 Hours 10/31/18 11/01/18 11/02/18 23:59 23:59 23:59 Intake Total 1200 / 1200 1200 / 1200 240 / 240 Output Total 275 / 275 650 / 650 Balance 1200 / 1200 925 / 925 -410 / -410 POC Glucose 11/02/18 06:18 POC Glucose 123 H Medical Necessity - Tobacco Use Smoking Status: Former smoker Tobacco Use: Non-smoker Assessment/Plan All Active Problems 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
--- NOTE | 2018-11-02 18:27 | NURSING ---
ST CATH'D R' AT THIS TIME FOR 500CC VERY CLOUDY/MILKY, YELLOW URINE. FOUL ODOR. R' TOLERATED FAIR.
[2018-11-02 18:40] VITALS: PULSE 91
[2018-11-02 18:41] LABS: Bacteria 0 SEEN /hpf (None Seen); Mucous, Urine 0 SEEN /hpf (<or=2+); Red Blood Cells-Urine 0 SEEN /hpf (0-5); Squamous Epithelial Cells - UA 0 SEEN /hpf (0-5)
[2018-11-02] MEDS: Tamsulosin HCl 0.4 MG Capsule PO (18:42)
[2018-11-02 18:54] LABS: Color, Urine Yellow (Yellow); Glucose, Dipstick Normal (Normal); Ketone-Dipstick Negative (Negative); Leukocyte Esterase-Dipstick 500 /ul (Negative); Nitrite-Dipstick Positive (Negative); Occult Blood-Urine 150 /ul (Negative); Protein-Dipstick 100 mg/dl (Negative); Specific Gravity, Urine 1.005 (1.002-1.030); Urine Bilirubin Dipstick Negative (Negative); Urine Clarity Turbid (Clear); Urine Urobilinogen Normal (Normal)
[2018-11-02 19:00] LABS: White Blood Cells >100 SEEN /hpf (0-5)
--- NOTE | 2018-11-02 20:26 | NURSING ---
Dr iN aware UA positive for nitrates. N.O. Cipro x7 days
[2018-11-02] MEDS: Atorvastatin Calcium 20 MG Tablet PO (21:12)
[2018-11-02] MEDS: Ciprofloxacin 250 MG Tablet PO (21:16)
[2018-11-02] MEDS: Acetaminophen 500 MG Tablet 1000 MG PO (21:21)
[2018-11-02 21:30] VITALS: PULSE 86; RESP 20; O2SAT 98
[2018-11-03] MEDS: Menthol/Lanolin/Calamine/Znox 113 GM Tube 1 APPLIC TOPICAL ×2 (05:28→21:02)
[2018-11-03 05:29] VITALS: BP 138/65; PULSE 79
[2018-11-03] MEDS: Nystatin Powder 15gm Bottle 1 APPLIC TOPICAL ×3 (05:29→21:03)
[2018-11-03] MEDS: Ciprofloxacin 250 MG Tablet PO ×2 (05:29→17:04)
[2018-11-03] MEDS: Metoprolol(XL)Succ 100 MG Tablet PO ×2 (05:29→17:03)
[2018-11-03] MEDS: Polyethylene Glycol 3350 17 GM PACKET PO (05:29)
[2018-11-03] MEDS: Pantoprazole Sodium 40 MG Tablet PO (05:30)
[2018-11-03] MEDS: LINAGLIPTIN 5 MG TABLET PO (05:30)
[2018-11-03] MEDS: Pyridoxine HCl 100 MG Tablet PO (05:30)
[2018-11-03] MEDS: Citalopram 10 MG Tablet PO (05:30)
[2018-11-03] MEDS: Senna/Docusate Sodium 1 Tablet 2 TABLET PO ×2 (05:30→17:03)
[2018-11-03] MEDS: Furosemide 40 MG Tablet PO (05:30)
[2018-11-03] MEDS: dilTIAZem CD 180 MG Capsule PO ×2 (05:33→17:04)
[2018-11-03] MEDS: 0.9% NaCl PICC Flush IV ×2 (06:39→13:36)
[2018-11-03 06:51] LABS: Bedside Glucose 133 mg/dL (70-110)
[2018-11-03] MEDS: Iron Polysaccharide Complex 150 MG CAPSULE PO ×2 (08:27→17:03)
[2018-11-03] MEDS: Allopurinol 100 MG Tablet PO (08:27)
[2018-11-03] MEDS: Multivitamins,Ther W-Minerals Tablet 1 TABLET PO ×2 (08:27→17:04)
[2018-11-03] MEDS: Aspirin E.C. 81 MG Tablet PO (08:27)
[2018-11-03] MEDS: Glimepiride 1 MG Tablet PO (08:27)
--- NOTE | 2018-11-03 08:37 | NURSING ---
Pt c/o of earache on left side after ears were flushed following completion of ear gtts. Bob GARVEY aware.
[2018-11-03 13:40] VITALS: PULSE 76; RESP 18; O2SAT 98
--- NOTE | 2018-11-03 14:00 | MDS.RN ---
Pain interview for yaakov 11/04/18 completed.
[2018-11-03 15:33] VITALS: BP 140/66; PULSE 68; RESP 18; O2SAT 100
--- NOTE | 2018-11-03 16:28 | CASEMGMT ---
Social Work Discharge is planned for tomorrow to [facility]. PassRR completed and orders faxed to [facility]. Per [facility], [facility] is unable to transport. 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 Pt notified and agreed. Pt stating he will notify his , who will be visiting this evening, of time of d/c. Nursing notified and Call to [facility] with time of pickling drum operator. Plan: D/C to [facility] on 11/04 at 11;15 [address]
[2018-11-03 17:03] VITALS: BP 140/66; PULSE 68
[2018-11-03] MEDS: Tamsulosin HCl 0.4 MG Capsule PO (17:03)
[2018-11-03] MEDS: Atorvastatin Calcium 20 MG Tablet PO (21:03)
[2018-11-04] MEDS: Furosemide 40 MG Tablet PO (04:10)
[2018-11-04] MEDS: Pyridoxine HCl 100 MG Tablet PO (04:10)
[2018-11-04] MEDS: Polyethylene Glycol 3350 17 GM PACKET PO (04:10)
[2018-11-04 04:11] VITALS: BP 148/67; PULSE 70
[2018-11-04] MEDS: Ciprofloxacin 250 MG Tablet PO ×2 (04:11→17:34)
[2018-11-04] MEDS: LINAGLIPTIN 5 MG TABLET PO (04:11)
[2018-11-04] MEDS: Citalopram 10 MG Tablet PO (04:11)
[2018-11-04] MEDS: Metoprolol(XL)Succ 100 MG Tablet PO ×2 (04:11→17:33)
[2018-11-04] MEDS: Senna/Docusate Sodium 1 Tablet 2 TABLET PO ×2 (04:11→17:34)
[2018-11-04] MEDS: Pantoprazole Sodium 40 MG Tablet PO (04:11)
[2018-11-04] MEDS: Menthol/Lanolin/Calamine/Znox 113 GM Tube 1 APPLIC TOPICAL ×2 (04:12→20:24)
[2018-11-04] MEDS: dilTIAZem CD 180 MG Capsule PO ×2 (04:12→17:34)
[2018-11-04] MEDS: Nystatin Powder 15gm Bottle 1 APPLIC TOPICAL ×3 (04:13→20:18)
[2018-11-04 06:00] VITALS: PULSE 70; O2SAT 98
[2018-11-04 06:45] LABS: Bedside Glucose 137 mg/dL (70-110)
[2018-11-04] MEDS: Allopurinol 100 MG Tablet PO (08:41)
[2018-11-04] MEDS: Multivitamins,Ther W-Minerals Tablet 1 TABLET PO ×2 (08:41→17:33)
[2018-11-04] MEDS: Aspirin E.C. 81 MG Tablet PO (08:41)
[2018-11-04] MEDS: Glimepiride 1 MG Tablet PO (08:41)
[2018-11-04] MEDS: Iron Polysaccharide Complex 150 MG CAPSULE PO ×2 (08:42→17:33)
--- NOTE | 2018-11-04 14:44 | CASEMGMT ---
Social Work Plan was for discharge today. Transportation had been set through [facility]. Call from [facility] that there was a mistake and they are unable to transport pt today. Phone calls made to multiple transportation companies and no one is able to transport today. Call to [facility] and requested they pick pt up and they are unable. Transportation arranged with [facility] to pear picker on at 1100. Pt, Pt , nursing and [facility] notified of change of d/c date due to transportation issues. Plan: [facility]05[facility] [address]
[2018-11-04 15:26] VITALS: BP 154/80; PULSE 75; RESP 18; TEMP 36.4; O2SAT 99
[2018-11-04] MEDS: Sodium Chloride 0.65% 1 SPRAY SPRAY.BTL 2 SPRAY NASAL (16:07)
[2018-11-04 17:33] VITALS: BP 154/80; PULSE 75
[2018-11-04] MEDS: Tamsulosin HCl 0.4 MG Capsule PO (17:34)
--- NOTE | 2018-11-04 17:39 | NURSING ---
IV REMOVED FROM RIGHT AC. PT TOLERATED WELL.
[2018-11-04] MEDS: Atorvastatin Calcium 20 MG Tablet PO (20:19)
[2018-11-05] MEDS: Polyethylene Glycol 3350 17 GM PACKET PO (05:42)
[2018-11-05] MEDS: Nystatin Powder 15gm Bottle 1 APPLIC TOPICAL (05:42)
[2018-11-05 05:43] VITALS: BP 144/77; PULSE 81
[2018-11-05] MEDS: dilTIAZem CD 180 MG Capsule PO (05:43)
[2018-11-05] MEDS: Metoprolol(XL)Succ 100 MG Tablet PO (05:43)
[2018-11-05] MEDS: Citalopram 10 MG Tablet PO (05:43)
[2018-11-05] MEDS: Pantoprazole Sodium 40 MG Tablet PO (05:43)
[2018-11-05] MEDS: Furosemide 40 MG Tablet PO (05:44)
[2018-11-05] MEDS: Ciprofloxacin 250 MG Tablet PO (05:44)
[2018-11-05] MEDS: LINAGLIPTIN 5 MG TABLET PO (05:44)
[2018-11-05] MEDS: Senna/Docusate Sodium 1 Tablet 2 TABLET PO (05:44)
[2018-11-05] MEDS: Pyridoxine HCl 100 MG Tablet PO (05:44)
[2018-11-05] MEDS: Menthol/Lanolin/Calamine/Znox 113 GM Tube 1 APPLIC TOPICAL (05:47)
[2018-11-05 06:55] LABS: Bedside Glucose 147 mg/dL (70-110)
--- NOTE | 2018-11-05 07:22 | NURSING ---
Pt c/o feeling dizzy again after being rolled over in bed. Also c/o having pressure in RUQ. VS- BP 153/788, P 83, R 18, T 97.8, Spo2 99% on RA. RN made aware.
[2018-11-05] MEDS: Allopurinol 100 MG Tablet PO (08:56)
[2018-11-05] MEDS: Glimepiride 1 MG Tablet PO (08:56)
[2018-11-05] MEDS: Aspirin E.C. 81 MG Tablet PO (08:56)
[2018-11-05] MEDS: Multivitamins,Ther W-Minerals Tablet 1 TABLET PO (08:56)
[2018-11-05] MEDS: Iron Polysaccharide Complex 150 MG CAPSULE PO (08:57)
[2018-11-05 10:00] VITALS: PULSE 66; O2SAT 96
[2018-11-05 10:58] VITALS: BP 154/69; PULSE 72; RESP 16; TEMP 36.6
--- NOTE | 2018-11-10 13:26 | MDS.RN ---
Information for the mds was obtained from review of the clinical record, interview of resident, staff, and direct observation of resident's care.
== END 2018-11-05 11:38 | disposition skilled nursing facility (03) | DRG 57 ==
PROVIDERS: Admitting Provider Family Medicine Geriatric Medicine; Visit Provider Family Medicine Geriatric Medicine
DX: I69.320 Aphasia following cerebral infarction (principal); I69.392 Facial weakness following cerebral infarction; E78.5 Hyperlipidemia, unspecified; G47.33 Obstructive sleep apnea (adult) (pediatric); K21.9 Gastro-esophageal reflux disease without esophagitis; E87.6 Hypokalemia; I25.10 Atherosclerotic heart disease of native coronary artery without angina pectoris; D50.9 Iron deficiency anemia, unspecified; N40.0 Benign prostatic hyperplasia without lower urinary tract symptoms; M10.9 Gout, unspecified; D46.9 Myelodysplastic syndrome, unspecified; Z87.891 Personal history of nicotine dependence; Z16.21 Resistance to vancomycin; D63.1 Anemia in chronic kidney disease; N18.9 Chronic kidney disease, unspecified; E11.22 Type 2 diabetes mellitus with diabetic chronic kidney disease; I12.9 Hypertensive chronic kidney disease with stage 1 through stage 4 chronic kidney disease, or unspecified chronic kidney disease; M19.90 Unspecified osteoarthritis, unspecified site; F32.9 Major depressive disorder, single episode, unspecified; I48.2 Chronic atrial fibrillation; L60.0 Ingrowing nail; L89.612 Pressure ulcer of right heel, stage 2; L89.322 Pressure ulcer of left buttock, stage 2; L89.312 Pressure ulcer of right buttock, stage 2
CPT/HCPCS: 36415; 36430; 74018; 76705; 80048; 80053; 81001; 82274; 82962; 85014; 85018; 85025; 86850; 86900; 86920; 86922; 87077; 87086; 87088; 87186; 92507; 92523; 92526; 97014; 97032; 97110; 97162; 97167; 97530; 97535; 97802; J7030; J7040; P9016; A4216; G0283; J3420

== ENCOUNTER 2018-09-27 16:25 | Outpatient (CLI) | payer MEDICARE, OTHER, SELFPAY ==
[2018-09-19 14:22] VITALS: BMI 35.9
[2018-09-27] VITALS (9 sets, daily range): BP systolic 105–128; BP diastolic 53–72; PULSE 63–76; RESP 18–20; TEMP 36.6–36.8; O2SAT 98–100; BMI 37.3
[2018-09-27] MEDS: Furosemide 40 MG/4 ML Vial IV (19:43)
[2018-09-27] MEDS: 0.9% NaCl PICC Flush IV (22:21)
== END 2018-09-27 22:25 ==
LOC: MS3OUT 16:29 → MS3 16:30
PROVIDERS: Visit Provider Family Medicine Geriatric Medicine
DX: D50.9 Iron deficiency anemia, unspecified (principal)
CPT/HCPCS: 36430; 86850; 86900; 86920; 86922; P9016; A4216; J1940

== ENCOUNTER → 2018-10-13 10:02 | Outpatient (CLI) | payer MEDICARE, OTHER, SELFPAY ==
[2018-09-27 16:45] VITALS: BMI 37.3
[2018-10-13] VITALS (7 sets, daily range): BP systolic 110–124; BP diastolic 44–54; PULSE 57–76; RESP 16–18; TEMP 35.9–36.8; O2SAT 97–100; BMI 36.8
[2018-10-13] MEDS: Furosemide 20 MG/2 ML VIAL IV (12:36)
== END ==
PROVIDERS: Family Provider Family Medicine; PCP Family Medicine; Visit Provider Family Medicine Geriatric Medicine
DX: D64.9 Anemia, unspecified (principal); Z86.73 Personal history of transient ischemic attack (TIA), and cerebral infarction without residual deficits
CPT/HCPCS: 36430; 86850; 86900; 86920; 86922; J7040; P9016; A4216; J1940